=== PATIENT | female | born 1990 | race Caucasian/White ===

== ENCOUNTER 2016-09-04 07:51 | Day surgery (SDC) | payer BC ==
[~2016-09-04 07:51] MED LIST: Lactated Ringers 1,000 ML IV SCH; Lidocaine 1% 6 ML ONE; Lidocaine 1%/Sod Bicarbonate in NS 8.4% 1 ML Syringe IV PRN; Midazolam 1 MG/ML 2 ML SDV ONE; Propofol 200 MG/20 ML SDV ONE; Sodium Chloride 0.9% 10 ML Syringe FLUSH PRN; fentaNYL 100 MCG/2 ML SDV ONE
[2016-09-04] MEDS ORDERED: Lidocaine 1% 30 ML SDV ONE (08:15)
[2016-09-04] MEDS ORDERED: Bupivacaine 0.5% 30 ML SDV ONE (08:15)
[2016-09-04] MEDS ORDERED: Sodium Chloride 0.9% 50 ML SDV ONE (08:23)
--- NOTE | 2016-09-04 08:45 | PCM.PREANE ---
Preanesthetic Assessment - Anesthesia/Transfusion/Family Hx Anesthesia History: Prior Anesthesia Without Reaction Family History of Anesthesia Reaction: No Transfusion History: No Prior Transfusion(s) - Review of Systems General: No Symptoms Pulmonary: No Symptoms Cardiovascular: No Symptoms Gastrointestinal: No symptoms Neurological: No Symptoms - Physical Assessment NPO Status Date: 09/03/16 NPO Status Time: 22:30 O2 Sat by Pulse Oximetry: 98 Respiratory Rate: 18 Vital Signs: Last Vital Signs Temp 98.2 F 09/04/16 08:24 Pulse 62 09/04/16 08:24 Resp 18 09/04/16 08:24 BP 117/66 09/04/16 08:24 Pulse Ox 98 09/04/16 08:24 Height: 5 ft 2 in Weight: 78.925 kg ASA Class: 2 Mental Status: Alert & Oriented x3 Airway Class: Mallampati = 1 Dentition: Reports: Normal Dentition (cracked tooth left molar) Thyro-Mental Finger Breadths: 3 Mouth Opening Finger Breadths: 3 ROM/Head Extension: Full Lungs: Clear to auscultation, Normal respiratory effort Cardiovascular: Regular Rate, Regular Rhythm - Lab Values: Laboratory Last Values Urine HCG, Qual Negative (NEGATIVE) 09/04/16 08:05 - Allergies Allergies/Adverse Reactions: Allergies Allergy/AdvReac Type Severity Reaction Status Date / Time No Known Allergies Allergy Verified 09/03/16 15:57 - Blood Blood Available: No - Anesthesia Plan Pre-Op Medication Ordered: None - Acknowledgements Anesthesia Type Planned: MAC Pt an Appropriate Candidate for the Planned Anesthesia: Yes Alternatives and Risks of Anesthesia Discussed w Pt/Guardian: Yes Pt/Guardian Understands and Agrees with Anesthesia Plan: Yes PreAnesthesia Questionnaire HEENT History: Reports: None Cardiovascular History: Reports: None Respiratory History: Reports: None Gastrointestinal History: Reports: None, Hemorrhoids Genitourinary History: Reports: Other (See Below) 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 Never on insulin, never on oral meds. Checked FSBG at home in the month of January and found sugars to be fairly close to WNL per pt and no FSBG checks since then. Remains on low carb/low sugar diet though is not strict and has never had to see a employment programs analyst for such or otherwise Hematologic History: Reports: None Immunologic History: Reports: None Oncologic (Cancer) History: Reports: None Dermatologic History: Reports: None - Past Surgical History Head Surgeries/Procedures: Reports: None HEENT Surgical History: Reports: Oral Surgery Other HEENT Surgeries/Procedures: Friona teeth removed Cardiovascular Surgical History: Reports: None Respiratory Surgical History: Reports: None GI Surgical History: Reports: Appendectomy Other GI Surgeries/Procedures: Lap appy in 2013 without any complications Female Surgical History: Reports: None Endocrine Surgical History: Reports: None Neurological Surgical History: Reports: None Musculoskeletal Surgical History: Reports: Shoulder Surgery, Other (See Below) Other Musculoskeletal Surgeries/Procedures:: Shoulder fracture 2003 followed by surgical repair and application of a "hanging cast". Dermatological Surgical History: Reports: None - SUBSTANCE USE Smoking Status *Q: Never Smoker Tobacco Use Within Last Twelve Months: No Second Hand Smoke Exposure: No Days Per Week of Alcohol Use: 0 Recreational Drug Use History: No - HOME MEDS Home Medications: Home Meds Ethinyl Estradiol/Norgestrel [Cryselle 28-Day] 1 tab PO DAILY 09/03/16 [History] - CURRENT (IN HOUSE) MEDS Current Meds: Current Medications Lactated Ringer's (Ringers, Lactated) 1,000 mls @ 125 mls/hr IV ASDIRECTED MELLISSA Stop: 09/04/16 23:00 Last Admin: 09/04/16 08:21 Dose: 125 mls/hr Lidocaine/Sodium Bicarbonate (Buffered Lidocaine 1% In Ns 8.4%) 0.25 ml IV ONETIME PRN PRN Reason: Prior to IV Start Stop: 09/04/16 18:00 Last Admin: 09/04/16 08:21 Dose: 0.25 ml Sodium Chloride (Saline Flush) 10 ml FLUSH ASDIRECTED PRN PRN Reason: Keep Vein Open Stop: 09/04/16 18:00 Discontinued Medications Bupivacaine HCl (Marcaine 0.5%) Confirm Administered Dose 30 ml .ROUTE .STK-MED ONE Stop: 09/04/16 08:16 Fentanyl (Sublimaze) Confirm Administered Dose 100 mcg .ROUTE .STK-MED ONE Stop: 09/04/16 07:35 Lidocaine HCl (Xylocaine-Mpf 1%) Confirm Administered Dose 6 mls @ as directed .ROUTE .STK-MED ONE Stop: 09/04/16 07:35 Lactated Ringer's (Ringers, Lactated) 1,000 mls @ 125 mls/hr IV ASDIRECTED MELLISSA Stop: 09/04/16 23:00 Lidocaine HCl (Xylocaine-Mpf 1%) Confirm Administered Dose 30 ml .ROUTE .STK- MED ONE Stop: 09/04/16 08:16 Lidocaine/Sodium Bicarbonate (Buffered Lidocaine 1% In Ns 8.4%) 0.25 ml IV ONETIME PRN PRN Reason: Prior to IV Start Stop: 09/04/16 18:00 Midazolam HCl (Versed 1 Mg/Ml) Confirm Administered Dose 2 mg .ROUTE .STK-MED ONE Stop: 09/04/16 07:36 Propofol (Diprivan 20 Ml) Confirm Administered Dose 200 mg .ROUTE .STK-MED ONE Stop: 09/04/16 07:35 Sodium Chloride (Saline Flush) 10 ml FLUSH ASDIRECTED PRN PRN Reason: Keep Vein Open Stop: 09/04/16 18:00 Sodium Chloride (Normal Saline) Confirm Administered Dose 50 ml .ROUTE .STK-MED ONE Stop: 09/04/16 08:24
--- NOTE | 2016-09-04 09:52 | PCM.OPNOTE ---
- General Post-Op/Procedure Note Date of Surgery/Procedure: 09/04/16 Operative Procedure(s): 1. anoscopy. 2. two column hemorrhoidal rubber band ligation Findings: Prominent right anterior and right posterior hemorrhoidal columns. The left lateral column was unremarkable. No anterior or posterior fissure was seen. There were no mass, lesions seen. Pre Op Diagnosis: Bright red rectal bleeding Post-Op Diagnosis: Internal hemorrhoids Anesthesia Technique: MAC, Moderate sedation Primary Surgeon: Justin Kurtz Pathology: None EBL in mLs: 0 Complications: None Condition: Good Free Text/Narrative:: After adequate IV sedation and analgesia was obtained the patient was placed in the prone jackknife position with her buttocks taped. Perianal inspection revealed no external hemorrhoids or anal tags. Digital rectal examination revealed normal sphincter tone. Anoscopy was performed next and revealed no fissures. There were no mass lesions seen. The right anterior and right posterior hemorrhoidal columns were slightly prominent but were nonbleeding. The left lateral column was essentially normal. At this point I placed a self- retaining anal retractor to expose the right posterior column. Two rubber bands were placed above the right posterior column with the sure shot followed by 2 rubber bands being placed above the right anterior hemorrhoidal column. There were no complications.
--- NOTE | 2016-09-04 09:52 | PCM48HPAN ---
Post Anesthesia Note - EVALUATION WITHIN 48HRS OF ANESTHETIC Vital Signs in Normal Range: Yes Patient Participated in Evaluation: Yes Respiratory Function Stable: Yes Airway Patent: Yes Cardiovascular Function Stable: Yes Hydration Status Stable: Yes Pain Control Satisfactory: Yes Nausea and Vomiting Control Satisfactory: Yes Mental Status Recovered: Yes
[2016-09-04 09:53] VITALS: BP 108/64
== END 2016-09-04 10:11 | disposition home or self-care (01) ==
LOC: MERGE 07:51 → JD.SDS 07:51
PROVIDERS: ATTEND Surgery
DX: K64.8 Other hemorrhoids (principal); E11.9 Type 2 diabetes mellitus without complications; E03.9 Hypothyroidism, unspecified; Z90.49 Acquired absence of other specified parts of digestive tract; Z79.3 Long term (current) use of hormonal contraceptives; Z79.899 Other long term (current) drug therapy
CPT/HCPCS: 46221; 81025; J2250; J3010; J7120; 00902; J2704

== ENCOUNTER 2017-07-11 10:56 | Inpatient (IN) | payer BC ==
--- NOTE | 2017-07-11 12:01 | PCM.LDHP ---
<Pancho Watkins Ermias - Last Filed: 07/11/17 13:26> L&D History of Present Illness - General Date of Service: 07/11/17 Admit Problem/Dx: Admission Diagnosis/Problem Admission Diagnosis/Problem 07/11/17 11:58 A 37 and 6/7th week intrauterine with gestational diabetes who presents to Labor and Delivery with increasing contractions and bloody show. - History of Present Illness Introduction:: This patient is a 27-year-old, 4, para 3-0-0-3 white female who was admitted at 37 and 6/7th weeks gestational age with an RENETTA of 07/26/2017 for contractions and the presence of a bloody show. She has had three previous normal spontaneous vaginal deliveries without complications. She is a diagnosed gestational diabetic whose blood sugars have monitored since approximately 31 weeks and have been well controlled with diet. 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 Female born on [birth year] at 39 weeks gestational age - 6 pounds 5 ounces - via normal spontaneous vaginal delivery - child's name is Anabella. 2. Female born on 03/26/2015 at 38 and 6/7ths weeks gestational age - 8 pounds 0 ounces - via normal spontaneous vaginal delivery after 12 hours of labor - child's name is Ronit Gaxiola. 3. Female infant born on 2015 at 37 and 6/7ths weeks gestational age - 10 pounds 0 ounces - via normal spontaneous vaginal delivery after 8 hours of labor - child's name is Von Ormy. The patient was first seen for care on 12/30/2016 at 10 and 2/ 7th weeks gestational age based on a certain LMP of 10/19/2016 and consistent with first ultrasound dates of 10 and 1/7th weeks. She has had regular care with good activity and appropriate fundal growth. She elected to not do the 1 hour GGT and went on to fail the 3 hour GGT. She has been monitoring her sugars at home and has been able to regulate them with diet. Her pregravid weight was 178 and is now 203, resulting in a 25 pound weight gain.) : 4 Para: 3 Other OB/BYN History: , hot flashes Musculoskeletal History: Reports: Fracture Neurological History: Reports: None Psychiatric History: Reports: None Endocrine/Metabolic History: Reports: Diabetes, Gestational, Hypothyroidism, Other (See Below) Other Endocrine/Metabolic History: 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 Never on insulin, never on oral meds. Checked FSBG at home in the month of January and found sugars to be fairly close to WNL per pt and no FSBG checks since then. Remains on low carb/low sugar diet though is not strict and has never had to see a environmental property assessor for such or otherwise Hematologic History: Reports: None Immunologic History: Reports: None Oncologic (Cancer) History: Reports: None Dermatologic History: Reports: None - Past Surgical History Musculoskeletal Surgical History: Reports: Other (See Below), Shoulder Surgery Social & Family History - Family History Family Medical History: Noncontributory Cardiac: Reports: High Cholesterol, Hypertension Other Cardiac Family History: Pt's father does have high cholesterol, and pt's mother MAY have HTN- pt not certain, otherwise, no one ill or with hx of illness pt is aware of in her or 's family. Dermatologic: Reports: Other (See Below) Other Dermatologic Family History: Father had a possible skin cancer of unknown type removed and biopsied recently Oncologic: Reports: None - Tobacco Use Smoking Status *Q: Never Smoker Second Hand Smoke Exposure: No - Alcohol Use Days Per Week of Alcohol Use: 0 - Recreational Drug Use Recreational Drug Use: No - Living Situation & Occupation Living situation: Reports: ( is Ricardo Mathias. She is a college graduate and a [id number] mom. She does not use tobacco, drugs, or alcohol.) H&P Review of Systems - Review of Systems: General: Reports: No Symptoms, Other (Patient is doing well. Baby is active. No complaints noted at this time.) Pulmonary: Denies: Shortness of Breath, Cough Cardiovascular: Denies: Chest Pain, Dyspnea on Exertion Gastrointestinal: Reports: No Symptoms Genitourinary: Reports: No Symptoms, Other (Changes associated with ) Musculoskeletal: Reports: No Symptoms Skin: Reports: No Symptoms Psychiatric: Reports: No Symptoms Neurological: Reports: No Symptoms L&D Exam - Vital Signs Vital Signs: Blood pressure of 120/73, temperature of 97.8 degrees F, heart rate of 79 bpm, respiratory rate of 15, and 99% O2 on admission to labor and delivery. Weight: 92.079 kg - OB Specific Fundal Height In cm: 38 - Bingham Score Bingham Score Consistency: Soft Bingham Score Effacement: 51-70% Bingham Score Dilation: 3-4 cm Bingham Score 's Station: -2 - Exam General: Alert, Oriented HEENT: Other (Within normal limits) Lungs: Clear to Auscultation, Normal Respiratory Effort Cardiovascular: Regular Rate, Regular Rhythm GI/Abdominal Exam: Normal Bowel Sounds, Other (Protuberant abdomen consistent with . Fundal height of 38 cm. Baby is in vertex position.) Extremities: Normal Inspection (Trace edema present) Skin: Warm, Dry, Intact Neurological: Other (Within normal limits) Psychiatric: Alert, Normal Affect, Normal Mood - Patient Data Lab Results Last 24 hrs: Shows blood to be O- with a negative antibody screen. Hemoglobin at first screen was 12.8 g/dL and platelets of 271,000. Rubella titer shows immunity. RPR is nonreactive. Pap smear shows ASCUS and HPV negative. Hep B and HIV assays were both negative. Chlamydia and gonorrhea assays were both negative. Second tgrimester testing showed hemboglobin to be normal at 12.5 g/ dL. Platelets were normal at 240,000. The 3 hour GGT was abnormal with values of 83, 190, 177, and 123 corresponding to fasting, 1 hour, 2 hours, and 3 hours , respectively. Group B Strep screen was negative. Assessment/Plan Comment:: Asssessment: 1. A 37 and 6/7th week intrauterine with gestational diabetes with consistent contractions and appropriate cervical change. 2. Group B Strep screen is negative. 3. The patient plans to breastfeed. 4. Rubella titer shows immunity. 5. The patient is considering a natural labor. Plan: 1. Artificial rupture of membranes. 2. Support decision to breastfeed. 3. Progress with natural labor or pain management as desired by the patient. <Rigoberto Dozier F - Last Filed: 07/11/17 16:00> L&D History of Present Illness - General Admit Problem/Dx: Patient Status Order with Admit Dx/Problem 07/11/17 13:11 Patient Status [ADT] Routine Admission Diagnosis/Problem Admission Diagnosis/Problem Source of Information: Patient History Limitations: Reports: No Limitations H&P Review of Systems - Review of Systems: Review Of Systems: See Below L&D Exam - Exam Exam: See Below - Vital Signs Vital Signs: Last Vital Signs Temp 36.6 C 07/11/17 13:25 Pulse 79 07/11/17 13:25 Resp 15 07/11/17 13:25 BP 120/73 07/11/17 13:25 Pulse Ox 99 07/11/17 13:25 - Patient Data Lab Results Last 24 hrs: Laboratory Results - last 24 hr 07/11/17 Range/Units 13:45 WBC 9.45 (3.98-10.04) K/mm3 RBC 4.29 (3.98-5.22) M/mm3 Hgb 13.2 (11.2-15.7) gm/L Hct 37.4 (34.1-44.9) % MCV 87.2 (79.4-94.8) fl MCH 30.8 (25.6-32.2) pg MCHC 35.3 (32.2-35.5) g/dl RDW Std Deviation 40.9 (36.4-46.3) fL Plt Count 241 (182-369) K/mm3 MPV 11.1 (9.4-12.3) fl Neut % (Auto) 72.9 H (34.0-71.1) % Lymph % (Auto) 18.0 L (19.3-51.7) % [place] % (Auto) 8.6 (4.7-12.5) % Eos % (Auto) 0.3 L (0.7-5.8) Baso % (Auto) 0.2 (0.1-1.2) % Neut # (Auto) 6.89 H (1.56-6.13) K/mm3 Lymph # (Auto) 1.70 (1.18-3.74) K/mm3 [place] # (Auto) 0.81 H (0.24-0.36) K/mm3 Eos # (Auto) 0.03 L (0.04-0.36) K/mm3 Baso # (Auto) 0.02 (0.01-0.08) K/mm3 Result Diagrams: 07/11/17 13:45 Problem List Initiated/Reviewed/Updated: Yes Orders Last 24hrs: Active Orders 24 hr Category Date Time Status Patient Status [ADT] Routine ADT 07/11/17 13:11 Active Activity as Tolerated [RC] PFP Care 07/11/17 13:11 Active Communication Order [RC] ASDIRECTED Care 07/11/17 13:11 Active Heart Tones [RC] ASDIRECTED Care 07/11/17 13:11 Active Notify Provider [RC] ASDIRECTED Care 07/11/17 13:18 Active Notify Provider [RC] PFP Care 07/11/17 13:11 Active Notify Provider [RC] PRN Care 07/11/17 13:11 Active Oxygen Therapy [RC] ASDIRECTED Care 07/11/17 13:18 Active Peripheral IV Care [RC] . DIRECTED Care 07/11/17 13:11 Active Pulse Oximetry [RC] ASDIRECTED Care 07/11/17 13:18 Active Vital Signs [RC] PER UNIT ROUTINE Care 07/11/17 13:11 Active Clear Liquid Diet [DIET] Diet 07/11/17 Dinner Active TYPE AND SCREEN [BBK] Stat Lab 07/11/17 13:09 Ordered Bupivacaine/fentaNYL/NS [fentaNYL/Bupivacaine/NS 2 MCG- Med 07/11/17 13:30 Active 0.125% 100 ML] 100 ml EPIDUR ASDIRECTED Lactated Ringers [Ringers, Lactated] 1,000 ml Med 07/11/17 13:15 Active IV ASDIRECTED Ondansetron [Zofran] Med 07/11/17 13:19 Active 4 mg IVPUSH ONETIME PRN Oxytocin/Lactated Ringers [Pitocin in LR 10 Units/1,000 Med 07/11/17 13:15 Active ML] 10 unit in 1,000 ml IV .CONTINUOUS Oxytocin/Lactated Ringers [Pitocin in LR 10 Units/1,000 Med 07/11/17 16:00 Ordered ML] 10 unit in 1,000 ml IV TITRATE Sodium Chloride 0.9% [Saline Flush] Med 07/11/17 13:09 Active 10 ml FLUSH ASDIRECTED PRN ePHEDrine [ePHEDrine Sulfate] Med 07/11/17 13:19 Active 5 mg IVPUSH ASDIRECTED PRN fentaNYL [Sublimaze] Med 07/11/17 13:19 Active 100 mcg EPIDUR Q3H PRN Electronic Heart Tones Ext w TOCO [WOMSER] Oth 07/11/17 13:11 Ordered Routine Electronic Heart Tones Internal [WOMSER] Per Unit Oth 07/11/17 13:11 Ordered Routine Peripheral IV Insertion Adult [OM.PC] Routine Oth 07/11/17 13:11 Ordered Resuscitation Status Routine Resus Stat 07/11/17 13:09 Ordered Medication Orders Ephedrine Sulfate (Ephedrine Sulfate) 5 mg IVPUSH ASDIRECTED PRN PRN Reason: Hypotension Fentanyl (Sublimaze) 100 mcg EPIDUR Q3H PRN PRN Reason: Pain Fentanyl/Bupivacaine HCl (Fentanyl/Bupivacaine/Ns 2 Mcg-0.125% 100 Ml) 100 ml EPIDUR ASDIRECTED MELLISSA Lactated Ringer's (Ringers, Lactated) 1,000 mls @ 100 mls/hr IV ASDIRECTED MELLISSA Oxytocin/Lactated Ringer's (Pitocin In Lr 10 Units/1,000 Ml) 10 unit in 1,000 mls @ 500 mls/hr IV .CONTINUOUS MELLISSA PRN Reason: Protocol Ondansetron HCl (Zofran) 4 mg IVPUSH ONETIME PRN PRN Reason: Nausea/Vomiting Sodium Chloride (Saline Flush) 10 ml FLUSH ASDIRECTED PRN PRN Reason: Keep Vein Open
[2017-07-11] MEDS ORDERED: Sodium Chloride 0.9% 10 ML Syringe FLUSH PRN (13:09)
[2017-07-11] MEDS ORDERED: Oxytocin/Lactated Ringers 10 UNIT/1,000 ML BAG IV SCH ×2 (13:15→16:00)
[2017-07-11] MEDS ORDERED: ePHEDrine 50 MG/ML SDV IVPUSH PRN (13:19)
[2017-07-11] MEDS ORDERED: fentaNYL 100 MCG/2 ML SDV EPIDUR PRN (13:19)
[2017-07-11] MEDS ORDERED: Ondansetron 4 MG/2 ML SDV IVPUSH PRN (13:19)
--- NOTE | 2017-07-11 13:24 | PCM.PREANE ---
Preanesthetic Assessment - Anesthesia/Transfusion/Family Hx Anesthesia History: Prior Anesthesia Without Reaction Family History of Anesthesia Reaction: No Transfusion History: No Prior Transfusion(s) Intubation History: Unknown - Review of Systems General: No Symptoms Pulmonary: No Symptoms Cardiovascular: No Symptoms Gastrointestinal: No Symptoms Neurological: Headache Other: Reports: None, Diabetes (gestational DM) - Physical Assessment NPO Status Date: 07/11/17 NPO Status Time: 08:00 Pulse: 79 O2 Sat by Pulse Oximetry: 99 Respiratory Rate: 15 Blood Pressure: 120/73 Temperature: 36.6 C Vital Signs: Last Vital Signs Temp 36.6 C 07/11/17 11:11 Pulse 79 07/11/17 11:11 Resp 15 07/11/17 11:11 BP 120/73 07/11/17 11:11 Pulse Ox 99 07/11/17 11:11 Height: 1.68 m Weight: 92.079 kg ASA Class: 2 Mental Status: Alert & Oriented x3 Airway Class: Mallampati = 2 Dentition: Reports: Normal Dentition, Caries Thyro-Mental Finger Breadths: 3 Mouth Opening Finger Breadths: 3 ROM/Head Extension: Full Lungs: Clear to Auscultation, Normal Respiratory Effort Cardiovascular: Regular Rate, Regular Rhythm, No Murmurs - Allergies Allergies/Adverse Reactions: Allergies Allergy/AdvReac Type Severity Reaction Status Date / Time No Known Allergies Allergy Verified 09/03/16 15:57 - Anesthesia Plan Pre-Op Medication Ordered: None - Acknowledgements Anesthesia Type Planned: Epidural Pt an Appropriate Candidate for the Planned Anesthesia: Yes Alternatives and Risks of Anesthesia Discussed w Pt/Guardian: Yes Pt/Guardian Understands and Agrees with Anesthesia Plan: Yes PreAnesthesia Questionnaire HEENT History: Reports: None Cardiovascular History: Reports: None Respiratory History: Reports: None Gastrointestinal History: Reports: Hemorrhoids, None Genitourinary History: Reports: Other (See Below) 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 Female born on [birth year] at 39 weeks gestational age - 6 pounds 5 ounces - via normal spontaneous vaginal delivery - child's name is Anabella. 2. Female infant born on 03/26/2015 at 38 and 6/7ths weeks gestational age - 8 pounds 0 ounces - via normal spontaneous vaginal delivery after 12 hours of labor - child's name is Ronit Gaxiola. 3. Female born on 2015 at 37 and 6/7ths weeks gestational age - 10 pounds 0 ounces - via normal spontaneous vaginal delivery after 8 hours of labor - child's name is Mishel Matthews. The patient was first seen for care on 12/30/2016 at 10 and 2/ 7th weeks gestational age based on a certain LMP of 10/19/2016 and consistent with first ultrasound dates of 10 and 1/7th weeks. She has had regular care with good activity and appropriate fundal growth. She elected to not do the 1 hour GGT and went on to fail the 3 hour GGT. She has been monitoring her sugars at home and has been able to regulate them with diet. Her pregravid weight was 178 and is now 203, resulting in a 25 pound weight gain.) Other OB/BYN History: , hot flashes Musculoskeletal History: Reports: Fracture Neurological History: Reports: None Psychiatric History: Reports: None Endocrine/Metabolic History: Reports: Diabetes, Gestational, Hypothyroidism, Other (See Below) Other Endocrine/Metabolic History: 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 Never on insulin, never on oral meds. Checked FSBG at home in the month of January and found sugars to be fairly close to WNL per pt and no FSBG checks since then. Remains on low carb/low sugar diet though is not strict and has never had to see a wireless construction manager for such or otherwise Hematologic History: Reports: None Immunologic History: Reports: None Oncologic (Cancer) History: Reports: None Dermatologic History: Reports: None - Infectious Disease History Infectious Disease History: Reports: Other (See Below) Other Infectious Disease History: HSV-1 - Past Surgical History Musculoskeletal Surgical History: Reports: Other (See Below), Shoulder Surgery - SUBSTANCE USE Smoking Status *Q: Never Smoker Tobacco Use Within Last Twelve Months: No Second Hand Smoke Exposure: No Days Per Week of Alcohol Use: 0 Recreational Drug Use History: No - CURRENT (IN HOUSE) MEDS Current Meds: Current Medications Lactated Ringer's (Ringers, Lactated) 1,000 mls @ 100 mls/hr IV ASDIRECTED MELLISSA Oxytocin/Lactated Ringer's (Pitocin In Lr 10 Units/1,000 Ml) 10 unit in 1,000 mls @ 500 mls/hr IV .CONTINUOUS MELLISSA PRN Reason: Protocol Sodium Chloride (Saline Flush) 10 ml FLUSH ASDIRECTED PRN PRN Reason: Keep Vein Open
[2017-07-11] MEDS ORDERED: Bupivacaine/fentaNYL/NS 100 ML Bag EPIDUR SCH (13:30)
[2017-07-11] MEDS: Lactated Ringers 1,000 ML IV SCH ×2 (16:15→18:06)
[2017-07-11] MEDS ORDERED: Bupivacaine 0.25% 10 ML SDV ONE (18:00)
--- NOTE | 2017-07-11 19:07 | PCM.SN ---
- Free Text/Narrative Note: Delivery note: Estelle is a 27-year-old 4 now para 4004 who was admitted midday today at 37-6/7 weeks gestational age in early labor. She progressed from 3-4 cm dilated and was chata approximately every 5-8 minutes apart. She progressed to approximately 6 cm at which time artificial rupture murmurs was undertaken with the results and clear amniotic fluid. She progressed to 8 cm and underwent epidural analgesia. She became completely dilated by approximately 1835 hrs. and pushed approximately 3 contractions which time she delivered a viable, haro, female infant with Apgars of 8 and 9, weight of 3230 g (7 pounds 1.9 ounces) and a length of 18.0 inches. The perineum remained intact. Pitocin was administered IV after deliver the baby per protocol. Baby was placed on mom's abdomen. Cord was cut and clamped 2 and cut by the baby's father Ricardo. Baby's nose and mouth bulb suctioned. The placenta delivered intact, in a Ortega presentation, appeared complete and was discarded per patient desire. Blood loss was 100 mL. Patient plans to breast -feed. Condition: Good
[2017-07-11] MEDS ORDERED: Acetaminophen 325 MG Tab PO PRN (19:16)
[2017-07-11] MEDS ORDERED: Ibuprofen 600 MG Tab PO PRN (19:16)
[2017-07-11] MEDS ORDERED: Lanolin 100% Cream 7 GM Tube TOP PRN (19:16)
[2017-07-11] MEDS ORDERED: Docusate Sodium 100 MG Cap PO PRN (19:16)
[2017-07-11] MEDS ORDERED: Witch Hazel Medicated Pads 100/Jar TOP PRN (19:16)
[2017-07-11] MEDS ORDERED: Benzocaine/Menthol 20%-0.5% Spray 56 GM Canister TOP PRN (19:16)
--- NOTE | 2017-07-12 11:16 | PCM.SN ---
- Free Text/Narrative Note: Post Progress Note PPD # 1 Subjective: Doing well overall. Ambulating without difficulty. Lochia minimal. Voiding without difficulty. Tolerating regular diet without nausea or vomiting. Pain controlled with oral medications. Breast feeding with minimal difficulty. Objective: Vitals: Vital Signs - 24 hr 07/11/17 07/11/17 07/12/17 13:25 21:38 04:29 Temperature 36.6 C 36.6 C 36.4 C Pulse, 79 69 75 Peripheral Respiratory 15 20 16 Rate Blood Pressure 120/73 116/65 109/79 O2 Sat by Pulse 99 98 98 Oximetry Physical Exam General: Alert and oriented, no acute distress Lungs: Clear to auscultation bilaterally Heart: Regular rate and rhythm Abdomen: Soft, minimal appropriate tenderness, non-distended, fundus midline, nontender, and below the umbilicus Extremities: Trace edema bilaterally to mid shins ASSESSMENT: 27-year-old female G 4 P 4004 s/p normal vaginal delivery PPD #1, complicated by gestational diabetes, diet controlled PLAN: Doing well Breast feeding with minimal difficulty. Assist as needed Lochia minimal. Continue to monitor for appropriate lochia. Continue routine care Anticipate discharge home today Robbin Bernal MD 11:17 AM 07/12/2017
--- NOTE | 2017-07-12 11:26 | PCM.DCSUM1 ---
Discharge Summary - Hospital Course Free Text/Narrative:: Estelle is a 27-year-old 4 now para 4004 who was admitted midday today at 37-6/7 weeks gestational age in early labor. She progressed from 3-4 cm dilated and was chata approximately every 5-8 minutes apart. She progressed to approximately 6 cm at which time artificial rupture murmurs was undertaken with the results and clear amniotic fluid. She progressed to 8 cm and underwent epidural analgesia. She became completely dilated by approximately 1835 hrs. and pushed approximately 3 contractions which time she delivered a viable, haro, female infant with Apgars of 8 and 9, weight of 3230 g (7 pounds 1.9 ounces) and a length of 18.0 inches. The perineum remained intact. Pitocin was administered IV after deliver the baby per protocol. Baby was placed on mom's abdomen. Cord was cut and clamped 2 and cut by the baby's father Ricardo. Baby's nose and mouth bulb suctioned. The placenta delivered intact, in a Ortega presentation, appeared complete and was discarded per patient desire. Blood loss was 100 mL. Patient plans to breast -feed. Condition: Good HPI Initial Comments: Estelle is a 27-year-old 4 now para 4004 who was admitted midday today at 37-6/7 weeks gestational age in early labor. She progressed from 3-4 cm dilated and was chata approximately every 5-8 minutes apart. She progressed to approximately 6 cm at which time artificial rupture murmurs was undertaken with the results and clear amniotic fluid. She progressed to 8 cm and underwent epidural analgesia. She became completely dilated by approximately 1835 hrs. and pushed approximately 3 contractions which time she delivered a viable, haro, female with Apgars of 8 and 9, weight of 3230 g (7 pounds 1.9 ounces) and a length of 18.0 inches. The perineum remained intact. Pitocin was administered IV after deliver the baby per protocol. Baby was placed on mom's abdomen. Cord was cut and clamped 2 and cut by the baby's father Ricardo. Baby's nose and mouth bulb suctioned. The placenta delivered intact, in a Ortega presentation, appeared complete and was discarded per patient desire. Blood loss was 100 mL. Patient plans to breast -feed. Condition: Good Brief History: Estelle is a 27-year-old 4 now para 4004 who was admitted midday today at 37-6/7 weeks gestational age in early labor. She progressed from 3-4 cm dilated and was chata approximately every 5-8 minutes apart. She progressed to approximately 6 cm at which time artificial rupture murmurs was undertaken with the results and clear amniotic fluid. She progressed to 8 cm and underwent epidural analgesia. She became completely dilated by approximately 1835 hrs. and pushed approximately 3 contractions which time she delivered a viable, haro, female infant with Apgars of 8 and 9, weight of 3230 g (7 pounds 1.9 ounces) and a length of 18.0 inches. The perineum remained intact. Pitocin was administered IV after deliver the baby per protocol. Baby was placed on mom's abdomen. Cord was cut and clamped 2 and cut by the baby's father Ricardo. Baby's nose and mouth bulb suctioned. The placenta delivered intact, in a Ortega presentation, appeared complete and was discarded per patient desire. Blood loss was 100 mL. Patient plans to breast- feed. Condition: Good - Discharge Data Discharge Date: 07/12/17 Discharge Disposition: Home, Self-Care 01 Condition: Good - Discharge Diagnosis/Problem(s) (1) 37 weeks gestation of SNOMED Code(s): 92312229 ICD Code: Z3A.37 - 37 WEEKS GESTATION OF Status: Acute Priority : Medium Current Visit: Yes (2) Gestational diabetes SNOMED Code(s): 15105180 ICD Code: O24.419 - GESTATIONAL DIABETES MELLITUS IN , UNSP CONTROL Status: Acute Current Visit: Yes Qualifiers: Gestational diabetes mellitus control: diet-controlled (3) Vaginal delivery SNOMED Code(s): 817835212 ICD Code: O80 - ENCOUNTER FOR FULL-TERM UNCOMPLICATED DELIVERY Status: Acute Current Visit: Yes - Patient Summary/Data Operative Procedure(s) Performed: None Complications: None Consults: None Hospital Course: Estelle Mathias was admitted for active labor. On admission her cervix was dilated to 3-4 cm. She was GBS negative. She was given an epidural for anesthesia. She had artificial rupture of membranes with clear fluid. She progressed to complete and began pushing. On 07/11/2017 she had a normal vaginal delivery of a viable female . Apgars of 8 & 9. Weight of 3230 g (7 pounds 1.9 ounces). Her course was uneventful. Her pain was well controlled and she had minimal lochia. She was ambulating, tolerating a regular diet and voiding normally. She was breast feeding. She was afebrile and her hematocrit was 37.4 on admission. She desired to be discharged home on the afternoon of PPD #1. Her blood type is O- and infant's blood type is O-. RhoGAM not indicated secondary to infant blood type with Rh- status. - Patient Instructions Diet: Regular Diet as Tolerated Activity: As Tolerated Activity, Other: Nothing in the vagina for 6 weeks Driving: May Drive Today Showering/Bathing: May Shower Notify Provider of: Fever, Increased Pain, Swelling and Redness, Drainage, Nausea and/or Vomiting Other/Special Instructions: Heavy vaginal bleeding enough to soak a pad in less than an hour for several hours - Discharge Plan Home Medications: Home Meds Vit #108/Iron/FA [ One Tablet] 1 tab PO DAILY 07/11/17 [History ] Acetaminophen [Tylenol] 650 mg PO Q4H PRN tablet 07/12/17 [Rx] Benzocaine/Menthol [Dermoplast Pain Relief [place]] 1 spray TOP ASDIRECTED PRN canister 07/12/17 [Rx] Docusate Sodium [Colace] 100 mg PO BID PRN cap 07/12/17 [Rx] Ibuprofen [IJD: Ibuprofen] 600 mg PO Q4H PRN tablet 07/12/17 [Rx] Lanolin [Lansinoh HPA] 1 applic TOP ASDIRECTED PRN tube 07/12/17 [Rx] Patient Handouts: Vaginal Delivery, Home Care Instructions for Mom, Care After Vaginal Delivery Referrals: Rigoberto Dozier MD [Physician] - (Follow-up in 2 weeks or earlier as needed for visit) - Discharge Summary/Plan Comment DC Time >30 min.: No - Patient Data Vitals - Most Recent: Last Vital Signs Temp 36.4 C 07/12/17 04:29 Pulse 75 07/12/17 04:29 Resp 16 07/12/17 04:29 BP 109/79 07/12/17 04:29 Pulse Ox 98 07/12/17 04:29 Weight - Most Recent: 92.079 kg I&O - Last 24 hours: Intake & Output 07/11/17 07/12/17 07/12/17 22:59 06:59 14:59 Intake Total 1700 Balance 1700 Lab Results - Last 24 hrs: Laboratory Results - last 24 hr 07/11/17 Range/Units 13:45 WBC 9.45 (3.98-10.04) K/mm3 RBC 4.29 (3.98-5.22) M/mm3 Hgb 13.2 (11.2-15.7) gm/L Hct 37.4 (34.1-44.9) % MCV 87.2 (79.4-94.8) fl MCH 30.8 (25.6-32.2) pg MCHC 35.3 (32.2-35.5) g/dl RDW Std Deviation 40.9 (36.4-46.3) fL Plt Count 241 (182-369) K/mm3 MPV 11.1 (9.4-12.3) fl Neut % (Auto) 72.9 H (34.0-71.1) % Lymph % (Auto) 18.0 L (19.3-51.7) % [place] % (Auto) 8.6 (4.7-12.5) % Eos % (Auto) 0.3 L (0.7-5.8) Baso % (Auto) 0.2 (0.1-1.2) % Neut # (Auto) 6.89 H (1.56-6.13) K/mm3 Lymph # (Auto) 1.70 (1.18-3.74) K/mm3 [place] # (Auto) 0.81 H (0.24-0.36) K/mm3 Eos # (Auto) 0.03 L (0.04-0.36) K/mm3 Baso # (Auto) 0.02 (0.01-0.08) K/mm3 Med Orders - Current: Current Medications Acetaminophen (Tylenol) 650 mg PO Q4H PRN PRN Reason: mild pain or fever Benzocaine/Menthol (Dermoplast Pain Relief [place]) 0 gm TOP ASDIRECTED PRN PRN Reason: Perineal Comfort Measure Docusate Sodium (Colace) 100 mg PO BID PRN PRN Reason: Constipation Emollient Ointment (Lansinoh Hpa) 0 gm TOP ASDIRECTED PRN PRN Reason: Sore Nipples Ibuprofen (Motrin) 600 mg PO Q4H PRN PRN Reason: Mild pain or fever Last Admin: 07/12/17 07:00 Dose: 600 mg Witch Tawanna (Tucks) 1 pad TOP ASDIRECTED PRN PRN Reason: Hemorrhoid pain Discontinued Medications Bupivacaine HCl (Sensorcaine-Mpf 0.25%) 10 ml .ROUTE .STK-MED ONE Stop: 07/11/17 18:01 Ephedrine Sulfate (Ephedrine Sulfate) 5 mg IVPUSH ASDIRECTED PRN PRN Reason: Hypotension Fentanyl (Sublimaze) 100 mcg EPIDUR Q3H PRN PRN Reason: Pain Last Admin: 07/11/17 18:04 Dose: 100 mcg Fentanyl/Bupivacaine HCl (Fentanyl/Bupivacaine/Ns 2 Mcg-0.125% 100 Ml) 100 ml EPIDUR ASDIRECTED MELLISSA Last Admin: 07/11/17 18:03 Dose: 100 ml Lactated Ringer's (Ringers, Lactated) 1,000 mls @ 100 mls/hr IV ASDIRECTED MELLISSA Last Infusion: 07/11/17 18:41 Dose: 100 mls/hr Oxytocin/Lactated Ringer's (Pitocin In Lr 10 Units/1,000 Ml) 10 unit in 1,000 mls @ 500 mls/hr IV .CONTINUOUS MELLISSA PRN Reason: Protocol Oxytocin/Lactated Ringer's (Pitocin In Lr 10 Units/1,000 Ml) 10 unit in 1,000 mls @ 12 mls/hr IV TITRATE MELLISSA; 2 MUNITS/MIN PRN Reason: Protocol Last Titration: 07/11/17 18:48 Dose: 0 munits/min, 0 mls/hr Ondansetron HCl (Zofran) 4 mg IVPUSH ONETIME PRN PRN Reason: Nausea/Vomiting Sodium Chloride (Saline Flush) 10 ml FLUSH ASDIRECTED PRN PRN Reason: Keep Vein Open *Q Meaningful Use (DIS) - VTE *Q VTE Criteria *Q: - Stroke *Q Stroke Criteria *Q: - AMI *Q AMI Criteria *Q:
[2017-07-12 21:22] VITALS: BP 125/77
== END 2017-07-12 20:45 | disposition home or self-care (01) | DRG 560 ==
LOC: JD.OBCHECK 10:56 → JD.OB 10:58 → JD.OBCHECK 13:11 → JD.OB 13:11 → OBSVTOIN 18:47 → JD.OB 18:47
PROVIDERS: ADMIT Obstetrics & Gynecology; ATTEND Obstetrics & Gynecology
PROC: 10E0XZZ Delivery of Products of Conception, External Approach (ICD-10-PCS; principal; 2017-07-11)
PROC: 10907ZC Drainage of Amniotic Fluid, Therapeutic from Products of Conception, Via Natural or Artificial Opening (ICD-10-PCS; 2017-07-11)
PROC: 00HU33Z Insertion of Infusion Device into Spinal Canal, Percutaneous Approach (ICD-10-PCS; 2017-07-11)
PROC: 3E0R3BZ Introduction of Anesthetic Agent into Spinal Canal, Percutaneous Approach (ICD-10-PCS; 2017-07-11)
DX: O24.420 Gestational diabetes mellitus in childbirth, diet controlled (principal); Z3A.37 37 weeks gestation of pregnancy; Z37.0 Single live birth
CPT/HCPCS: 36415; 59409; 85025; 85027; A9270-GY; J2590; J3010; J7120

== ENCOUNTER 2018-04-25 01:38 | Emergency (ER) | payer BC ==
[2018-04-25 01:44] VITALS: BP 129/80
[2018-04-25] MEDS ORDERED: HYDROmorphone 1 MG/ML Syringe IVPUSH STA (01:55)
[2018-04-25] MEDS ORDERED: Ondansetron 4 MG/2 ML SDV IVPUSH ONE (01:55)
[2018-04-25] MEDS ORDERED: Sodium Chloride 0.9% 1,000 ML IV SCH (02:00)
--- NOTE | 2018-04-25 02:30 | EDM.PDOC ---
ED HPI GENERAL MEDICAL PROBLEM - General Chief Complaint: Abdominal Pain Stated Complaint: [facility] Time Seen by Provider: 04/25/18 01:41 Source of Information: Reports: Patient, Family (), RN Notes Reviewed History Limitations: Reports: No Limitations - History of Present Illness INITIAL COMMENTS - FREE TEXT/NARRATIVE: Medical records indicate that the patient was seen in this ED on 03/18/2018, at which time a CT scan of the abdomen and pelvis found lesions in the liver, consistent with metastatic disease. The patient states that she was formally diagnosed with stage IV colon cancer on 03/27/2018. The patient and her were seen at [facility] just 2 days ago, 04/22/2017, and returned home this past evening. The patient is to receive a Port-A-Cath this coming 04/28/2017, with chemotherapy to begin the following day, Friday, 2017. The patient's Oncologist in [place] is Dr. Rinku Byers. The patient states that she developed left upper quadrant abdominal pain around 21:00 this evening, while driving back from [place]. It is a constant pressure , but made sharp when she takes a deep breath. Occasionally, when it is severe, it will radiate to the left flank. She has had nausea, but no emesis. No recent fever, constipation, diarrhea, or urinary symptoms. While the patient has had severe pain elsewhere in her abdomen, particularly on the right side, she has not had pain in the left upper quadrant previously. The last imaging study of the patient was a CT scan of the abdomen and pelvis on 04/17/2018, at [facility]. The patient last oral food was around 21:00. The patient's PCP is Dr. Dozier. Left Abdominal Pain Score (Numeric/FACES): 10 - Related Data Allergies Allergy/AdvReac Type Severity Reaction Status Date / Time No Known Allergies Allergy Verified 04/25/18 01:44 Home Meds: Home Meds . [No Known Home Meds] 04/25/18 [History] Past Medical History Gastrointestinal History: Reports: Hemorrhoids [employer] History: Reports: Musculoskeletal History: Reports: Fracture (left proximal humerus) Endocrine/Metabolic History: Reports: Diabetes, Gestational, Hypothyroidism Oncologic (Cancer) History: Reports: Colon (Stage IV) - Infectious Disease History Infectious Disease History: Reports: Herpes (HSV-1) - Past Surgical History HEENT Surgical History: Reports: Oral Surgery (wisdom teeth extraction) GI Surgical History: Reports: Appendectomy, Colonoscopy, Other (See Below) ( Hemmorhoid banding) Musculoskeletal Surgical History: Reports: ORIF (left proximal humerus) Social & Family History - Family History Family Medical History: Noncontributory Cardiac: Reports: High Cholesterol, Hypertension Other Cardiac Family History: Pt's father does have high cholesterol, and pt's mother MAY have HTN- pt not certain, otherwise, no one ill or with hx of illness pt is aware of in her or 's family. Dermatologic: Reports: Other (See Below) Other Dermatologic Family History: Father had a possible skin cancer of unknown type removed and biopsied recently Oncologic: Reports: None - Tobacco Use Smoking Status *Q: Never Smoker - Caffeine Use Caffeine Use: Reports: Coffee - Alcohol Use Alcohol Use History: No - Recreational Drug Use Recreational Drug Use: No - Living Situation & Occupation Living situation: Reports: ( is Ricardo Mathias. She is a college graduate and a [id number] mom. She does not use tobacco, drugs, or alcohol.), with Spouse, with Family (4 kids) Occupation: Unemployed ED ROS GENERAL - Review of Systems Review Of Systems: ROS reveals no pertinent complaints other than HPI. ED EXAM, GI/ABD - Physical Exam Exam: See Below Exam Limited By: No Limitations General Appearance: Alert, WD/WN, No Apparent Distress (appears uncomfortable) Eyes: Bilateral: Normal Appearance, EOMI Ears: Normal External Exam, Hearing Grossly Normal Nose: Normal Inspection Throat/Mouth: Normal Inspection, Normal Lips, Normal Voice, No Airway Compromise Head: Atraumatic, Normocephalic Neck: Normal Inspection, Full Range of Motion Respiratory/Chest: No Respiratory Distress, Lungs Clear, Normal Breath Sounds, No Accessory Muscle Use Cardiovascular: Normal Peripheral Pulses, Regular Rate, Rhythm, No Edema, No Gallop, No JVD, No Murmur, No Rub GI/Abdominal Exam: Normal Bowel Sounds, Soft, No Organomegaly, No Abnormal Bruit , Tender (left upper quadrant only. Nontender elsewhere.), Other (Protruberant abdomen) (Female) Exam: Deferred Rectal (Female) Exam: Deferred Back Exam: Normal Inspection, Full Range of Motion. No: CVA Tenderness (L), CVA Tenderness (R) Extremities: Normal Inspection, Normal Range of Motion, No Pedal Edema, Normal Capillary Refill Neurological: Alert, Oriented, Normal Cognition, No Motor/Sensory Deficits Psychiatric: Normal Affect Skin Exam: Warm, Dry, Intact, Normal Color, No Rash Course - Vital Signs Last Recorded V/S: Last Vital Signs Temp 36.3 C 04/25/18 01:39 Pulse 83 04/25/18 01:39 Resp 16 04/25/18 01:39 BP 129/80 04/25/18 01:39 Pulse Ox 98 04/25/18 01:39 - Orders/Labs/Meds Orders: Active Orders 24 hr Category Date Time Status Abdomen Pelvis w Cont [CT] Stat Exams 04/25/18 01:55 Taken Sodium Chloride 0.9% [Normal Saline] 1,000 ml Med 04/25/18 02:00 Active IV ASDIRECTED Medication Orders Sodium Chloride (Normal Saline) 1,000 mls @ 150 mls/hr IV ASDIRECTED MELLISSA Last Admin: 04/25/18 02:06 Dose: 150 mls/hr Labs: Laboratory Tests 04/25/18 04/25/18 Range/Units 01:50 01:50 WBC 12.42 H (3.98-10.04) K/mm3 RBC 4.46 (3.98-5.22) M/mm3 Hgb 12.6 (11.2-15.7) gm/L Hct 37.7 (34.1-44.9) % MCV 84.5 (79.4-94.8) fl MCH 28.3 (25.6-32.2) pg MCHC 33.4 (32.2-35.5) g/dl RDW Std Deviation 38.8 (36.4-46.3) fL Plt Count 346 (182-369) K/mm3 MPV 10.3 (9.4-12.3) fl Neutrophils % (Manual) 77 H (40-60) % Band Neutrophils % 0 (0-10) % Lymphocytes % (Manual) 11 L (20-40) % Atypical Lymphs % 0 % Monocytes % (Manual) 11 H (2-10) % Eosinophils % (Manual) 1 (0.7-5.8) % Basophils % (Manual) 0 L (0.1-1.2) Platelet Estimate Adequate Plt Morphology Comment Normal RBC Morph Comment Normal Sodium 135 L (136-145) mEq/L Potassium 3.7 (3.5-5.1) mEq/L Chloride 97 L (98-107) mEq/L Carbon Dioxide 25 (21-32) mEq/L Anion Gap 16.7 H (5-15) BUN 9 (7-18) mg/dL Creatinine 0.7 (0.55-1.02) mg/dL Est Cr Clr Drug Dosing 107.67 mL/min Estimated GFR (MDRD) > 60 (>60) mL/min BUN/Creatinine Ratio 12.9 L (14-18) Glucose 114 H (74-106) mg/dL Calcium 9.8 (8.5-10.1) mg/dL Total Bilirubin 0.6 (0.2-1.0) mg/dL AST 61 H (15-37) U/L ALT 57 (14-59) U/L Alkaline Phosphatase 161 H (46-116) U/L Total Protein 8.8 H (6.4-8.2) g/dl Albumin 3.9 (3.4-5.0) g/dl Globulin 4.9 gm/dL Albumin/Globulin Ratio 0.8 L (1-2) Lipase 116 (73-393) U/L Meds: Medications Generic Name Dose Route Start Last Admin Trade Name Freq PRN Reason Stop Dose Admin Sodium Chloride 1,000 mls @ 150 mls/hr 04/25/18 02:00 04/25/18 02:06 Normal Saline IV 150 mls/hr ASDIRECTED MELLISSA Administration Discontinued Medications Generic Name Dose Route Start Last Admin Trade Name Freq PRN Reason Stop Dose Admin Diatrizoate Meglum/Diatrizoate Sod 120 ml 04/25/18 03:03 04/25/18 03:27 Gastrografin 37% PO 04/25/18 03:04 120 ml ONETIME ONE Administration Hydromorphone HCl 1 mg 04/25/18 01:55 04/25/18 02:06 Dilaudid IVPUSH 04/25/18 01:56 1 mg ONETIME STA Administration Hydromorphone HCl 1 mg 04/25/18 04:51 04/25/18 04:56 Dilaudid IVPUSH 04/25/18 04:52 1 mg ONETIME ONE Administration Iopamidol 25 ml 04/25/18 03:03 04/25/18 03:28 Isovue-300 (61%) IVPUSH 04/25/18 03:04 25 ml ONETIME ONE Administration Iopamidol 100 ml 04/25/18 03:03 04/25/18 03:28 Isovue-300 (61%) IVPUSH 04/25/18 03:04 100 ml ONETIME ONE Administration Ondansetron HCl 4 mg 04/25/18 01:55 04/25/18 02:06 Zofran IVPUSH 04/25/18 01:56 4 mg ONETIME ONE Administration - Re-Assessments/Exams Free Text/Narrative Re-Assessment/Exam: 04/25/18 05:02 CT of the abdomen and pelvis with oral and IV contrast is read by [facility] as: 1. No acute abnormality. 2. Multiple liver lesions, compatible with the known liver metastases. Compared to a prior CT of 03/19/2018, there appears to be mild progression of these lesions, as described. 3. Findings in the distal sigmoid colon which could represent the known colonic neoplasm. No evidence of bowel obstruction. See above for remaining findings. 04/25/18 05:18 Test results discussed with the patient and her . Unfortunately, the cause of the patient's left upper quadrant abdominal pain is unknown, as her workup tonight is unremarkable. I do not see an indication to admit the patient to the hospital, and the patient and her agree. [facility] the [facility] Blaine and Zofran. The patient will follow-up with her Oncologist in [place], Dr. Byers, this coming 04/28/2018. Departure - Departure Time of Disposition: 05:19 Disposition: Home, Self-Care 01 Condition: Fair Clinical Impression: Left upper quadrant abdominal pain of unknown etiology, History of colon cancer , stage IV - Discharge Information *PRESCRIPTION DRUG MONITORING PROGRAM REVIEWED*: Not Applicable *COPY OF PRESCRIPTION DRUG MONITORING REPORT IN PATIENT ERNIE: Not Applicable Referrals: Rigoberto Dozier MD [Primary Care Provider] - Rinku Byers MD [Ordering Only Provider] - Forms: ED Department Discharge Additional Instructions: You were seen in the emergency room for upper left abdominal pain, with nausea. Workup in the ER included blood work and a CT scan of your abdomen and pelvis with oral and IV contrast. While your CT scan saw the previously known about distal colon tumor and liver metastases, it did not see any abnormalities in your upper left abdomen, and your blood work was unremarkable. The cause of your pain is not known. Prescriptions for the pain medicine Blaine and the anti-nausea medicine Zofran have been prescribed via [facility]. Take 1 to 2 tablets of Blaine up to every 6 hours, as needed for pain. If you take Blaine, do not drive for 10 hours afterwards. Blaine will likely cause constipation, so consider taking a stool softener, such as MiraLAX, with plenty of water. Dissolve one tablet of Zofran on your tongue up to every 8 hours, as needed for nausea/vomiting. Follow-up with your Oncologist, Dr. Rinku Byers, at your previously scheduled appointment this coming 04/28/2018. If any other problems, please do not hesitate to return to the ER. - My Orders Last 24 Hours: My Active Orders 04/25/18 01:55 Abdomen Pelvis w Cont [CT] Stat 04/25/18 02:00 Sodium Chloride 0.9% [Normal Saline] 1,000 ml IV ASDIRECTED - Assessment/Plan Last 24 Hours: My Active Orders 04/25/18 01:55 Abdomen Pelvis w Cont [CT] Stat 04/25/18 02:00 Sodium Chloride 0.9% [Normal Saline] 1,000 ml IV ASDIRECTED
[2018-04-25] MEDS ORDERED: Iopamidol 612 MG/ML 100 ML Bottle IVPUSH ONE (03:03)
[2018-04-25] MEDS ORDERED: Iopamidol 612 MG/ML 50 ML SDV IVPUSH ONE (03:03)
[2018-04-25] MEDS ORDERED: Diatrizoate Meglumine/Diatrizoate Sodium 37% 120 ML Bottle PO ONE (03:03)
[2018-04-25] MEDS ORDERED: HYDROmorphone 1 MG/ML Syringe IVPUSH ONE (04:51)
--- NOTE | 2018-04-25 15:05 | CT ---
CT abdomen and pelvis Technique: Multiple axial sections were obtained from above the dome of the diaphragm inferiorly to the pubic symphysis. Intravenous and oral contrast was utilized. Delayed images were also obtained through the abdomen and pelvis. Comparison: Prior CT abdomen and pelvis exam of 03/19/18. Findings: Multiple liver lesions are identified. These are identified within both right and left lobes of the liver. Largest lesion within the right lobe measures 8.7 cm x 6.[address] exam this measures 7.6 x 5.1 cm in similar dimensions. Largest lesion within the left lobe measures 6.5 cm x 7.3 cm. On previous exam this measures about 5.6 cm x 6.4 cm in similar dimensions. Other lesions are seen which have also slightly increased in size from previous study. Spleen appears within normal limits. Adrenal glands show no nodule. Kidneys show symmetric contrast enhancement without hydronephrosis or mass. Pancreas is within normal limits. Aorta shows no aneurysm. No retroperitoneal adenopathy or mesenteric abnormalities are seen. No pelvic mass or adenopathy is appreciated. Slight increased stool within the right colon is seen. Questionable wall thickening within the distal sigmoid colon is seen. Bone window settings were reviewed which appear within normal limits for the patient's age. Delayed images show contrast excretion from both kidneys into nondilated ureters as well as contrast within the bladder. Impression: 1. Enlarging liver metastasis from prior CT exam of 03/19/18. 2. Mild increased stool within the right colon. 3. Questionable wall thickening within the distal sigmoid colon which could represent the patient's known colonic carcinoma, please correlate. 4. No additional abnormality is seen. Diagnostic code #9 I agree with preliminary report from [facility], finalized on 04/25/18, 5:56 AM Central Time
== END 2018-04-25 05:36 | disposition home or self-care (01) ==
LOC: JD.ED 01:38
DX: R10.12 Left upper quadrant pain (principal); R11.0 Nausea; C18.9 Malignant neoplasm of colon, unspecified; E03.9 Hypothyroidism, unspecified; F17.210 Nicotine dependence, cigarettes, uncomplicated
CPT/HCPCS: 36415; 74177; 80053; 83690; 85007; 85027; 96361; 96374; 96375; 96376; 99284; J1170; J2405; J7040; Q9963; Q9967

== ENCOUNTER 2018-07-15 23:09 | Emergency (ER) | payer BC ==
[2018-07-15 23:32] VITALS: BP 108/80
[2018-07-15] MEDS ORDERED: Sodium Chloride 0.9% 1,000 ML IV SCH (23:45)
[2018-07-15] MEDS ORDERED: Ondansetron 4 MG/2 ML SDV IVPUSH ONE (23:47)
[2018-07-15] MEDS ORDERED: Sodium Chloride 0.9% 10 ML Syringe FLUSH PRN (23:47)
[2018-07-15] MEDS ORDERED: HYDROmorphone 1 MG/ML Syringe IVPUSH ONE (23:48)
[2018-07-16] MEDS ORDERED: HYDROmorphone 1 MG/ML Syringe IVPUSH ONE (03:15)
--- NOTE | 2018-07-16 03:24 | EDM.PDOC ---
ED HPI GENERAL MEDICAL PROBLEM - General Chief Complaint: Back Pain or Injury Stated Complaint: BACK PAIN Time Seen by Provider: 07/15/18 23:23 Source of Information: Reports: Patient, Family, Provider History Limitations: Reports: No Limitations - History of Present Illness INITIAL COMMENTS - FREE TEXT/NARRATIVE: The patient presents with low back pain with more pain in the right flank. This has been going on for a few days. Her provider Allyssa Trammell called to let me know she was coming in. The patient has a complex history. She was recently diagnosed with stage 4 colon cancer with mets to her liver. She went to the [facility] and she had chemotherapy. She did not tolerate the chemo. She opted to not do chemo anymore. She is trying an herbal supplement. She was told with chemo she had about 2 years to live without it would be much shorter. She recently found out she is . She has been seeing Dr Dozier and Allyssa Trammell. The patient's HCG has been going up. She had some lab work done today and there was some blood in her urine. Allyssa Trammell called the patient and she had more pain. She was advised to come in for labs and an US of her kidney and pelvic US to rule out ectopic . The patient denies fever, chills, or cough. She has no chest pain or shortness of breath. Onset: Gradual Duration: Day(s): Location: Reports: Back Quality: Reports: Sharp Severity: Moderate Improves with: Reports: None Worsens with: Reports: None Associated Symptoms: Reports: No Other Symptoms Back Pain Score (Numeric/FACES): 5 - Related Data Allergies Allergy/AdvReac Type Severity Reaction Status Date / Time No Known Allergies Allergy Verified 07/15/18 23:20 Home Meds: Home Meds Progesterone,Micronized [Endometrin] 100 mg VAG BID 07/15/18 [History] Hydrocodone/Acetaminophen [Hydrocodon-Acetaminophen 5-325] 1 - 2 each PO Q6HR PRN #20 tablet 07/16/18 [Rx] Past Medical History HEENT History: Reports: Impaired Vision Cardiovascular History: Reports: None Respiratory History: Reports: None Gastrointestinal History: Reports: Hemorrhoids Other Gastrointestinal History: Colon CA which has metastisized. 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 Never on insulin, never on oral meds. Checked FSBG at home in the month of January and found sugars to be fairly close to WNL per pt and no FSBG checks since then. 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 - Past Surgical History Head Surgeries/Procedures: Reports: None HEENT Surgical History: Reports: Oral Surgery Other HEENT Surgeries/Procedures: [place] teeth surgery x4 2013 GI Surgical History: Reports: Appendectomy, Colonoscopy, Other (See Below) Musculoskeletal Surgical History: Reports: Other (See Below) Other Musculoskeletal Surgeries/Procedures:: Shoulder reduction Social & Family History - Family History Family Medical History: Noncontributory Cardiac: Reports: High Cholesterol, Hypertension Other Cardiac Family History: Pt's father does have high cholesterol, and pt's mother MAY have HTN- pt not certain, otherwise, no one ill or with hx of illness pt is aware of in her or 's family. Dermatologic: Reports: Other (See Below) Other Dermatologic Family History: Father had a possible skin cancer of unknown type removed and biopsied recently Oncologic: Reports: None - Tobacco Use Smoking Status *Q: Never Smoker Second Hand Smoke Exposure: No - Caffeine Use Caffeine Use: Reports: None - Recreational Drug Use Recreational Drug Use: No - Living Situation & Occupation Living situation: Reports: ( is Ricardo Mathias. She is a college graduate and a [id number] mom. She does not use tobacco, drugs, or alcohol.), with Spouse, with Family (4 kids) Occupation: Unemployed ED ROS GENERAL - Review of Systems Review Of Systems: See Below Constitutional: Reports: No Symptoms HEENT: Reports: No Symptoms Respiratory: Reports: No Symptoms Cardiovascular: Reports: No Symptoms Endocrine: Reports: No Symptoms GI/Abdominal: Reports: No Symptoms : Reports: Flank Pain Musculoskeletal: Reports: Back Pain ED EXAM,LOWER BACK PAIN/INJURY - Physical Exam Exam: See Below Exam Limited By: No Limitations General Appearance: Alert, No Apparent Distress Ears: Normal External Exam Nose: Normal Inspection Head: Atraumatic, Normocephalic Neck: Normal Inspection Respiratory/Chest: No Respiratory Distress, Lungs Clear, Normal Breath Sounds Cardiovascular: Regular Rate, Rhythm, No Edema, No Murmur GI/Abdominal: Soft, Non-Tender, No Organomegaly, No Mass Back Exam: Other (Pain upon palpation to the lower back with more pain to the right then left.) Extremities: Normal Inspection Neurological: Alert, No Motor/Sensory Deficits, Oriented x 3 Course - Vital Signs Last Recorded V/S: Last Vital Signs Temp 98.6 F 07/15/18 23:28 Pulse 92 07/15/18 23:28 Resp 18 07/15/18 23:28 BP 108/80 07/15/18 23:28 Pulse Ox 100 07/15/18 23:28 - Orders/Labs/Meds Orders: Active Orders 24 hr Category Date Time Status Peripheral IV Care [RC] . DIRECTED Care 07/15/18 23:48 Active OB Transvaginal [US] Stat Exams 07/15/18 23:49 Taken Retroperitoneal Comp [US] Stat Exams 07/15/18 23:51 Taken Sodium Chloride 0.9% [Normal Saline] 1,000 ml Med 07/15/18 23:45 Active IV ASDIRECTED Sodium Chloride 0.9% [Saline Flush] Med 07/15/18 23:47 Active 10 ml FLUSH ASDIRECTED PRN ED Antiemetic Medication Reflex [OM.PC] Stat Oth 07/15/18 23:47 Ordered Peripheral IV Insertion Adult [OM.PC] Stat Oth 07/15/18 23:47 Ordered Medication Orders Sodium Chloride (Normal Saline) 1,000 mls @ 125 mls/hr IV ASDIRECTED MELLISSA Last Admin: 07/16/18 00:06 Dose: 125 mls/hr Sodium Chloride (Saline Flush) 10 ml FLUSH ASDIRECTED PRN PRN Reason: Keep Vein Open Last Admin: 07/16/18 00:10 Dose: 10 ml Labs: Laboratory Tests 07/15/18 07/16/18 07/16/18 Range/Units 00:10 00:10 01:05 WBC 10.89 H (3.98-10.04) K/mm3 RBC 3.91 L (3.98-5.22) M/mm3 Hgb 10.9 L (11.2-15.7) gm/L Hct 32.9 L (34.1-44.9) % MCV 84.1 (79.4-94.8) fl MCH 27.9 (25.6-32.2) pg MCHC 33.1 (32.2-35.5) g/dl RDW Std Deviation 41.3 (36.4-46.3) fL Plt Count 359 (182-369) K/mm3 MPV 9.9 (9.4-12.3) fl Neut % (Auto) 66.2 (34.0-71.1) % Lymph % (Auto) 22.3 (19.3-51.7) % Ross % (Auto) 10.0 (4.7-12.5) % Eos % (Auto) 1.0 (0.7-5.8) Baso % (Auto) 0.3 (0.1-1.2) % Neut # (Auto) 7.21 H (1.56-6.13) K/mm3 Lymph # (Auto) 2.43 (1.18-3.74) K/mm3 Ross # (Auto) 1.09 H (0.24-0.36) K/mm3 Eos # (Auto) 0.11 (0.04-0.36) K/mm3 Baso # (Auto) 0.03 (0.01-0.08) K/mm3 Manual Slide Review Abnormal smear Sodium 135 L (136-145) mEq/L Potassium 3.7 (3.5-5.1) mEq/L Chloride 100 (98-107) mEq/L Carbon Dioxide 23 (21-32) mEq/L Anion Gap 15.7 H (5-15) BUN 12 (7-18) mg/dL Creatinine 0.7 (0.55-1.02) mg/dL Est Cr Clr Drug Dosing 111.01 mL/min Estimated GFR (MDRD) > 60 (>60) mL/min BUN/Creatinine Ratio 17.1 (14-18) Glucose 112 H (74-106) mg/dL Calcium 9.7 (8.5-10.1) mg/dL Total Bilirubin 0.4 (0.2-1.0) mg/dL AST 72 H (15-37) U/L ALT 72 H (14-59) U/L Alkaline Phosphatase 222 H (46-116) U/L Total Protein 8.2 (6.4-8.2) g/dl Albumin 3.3 L (3.4-5.0) g/dl Globulin 4.9 gm/dL Albumin/Globulin Ratio 0.7 L (1-2) Lipase 143 (73-393) U/L Urine Color Yellow (Yellow) Urine Appearance Clear (Clear) Urine pH 7.0 (5.0-8.0) Ur Specific [place] 1.010 (1.005-1.030) Urine Protein Negative (Negative) Urine Glucose (UA) Negative (Negative) Urine Ketones Negative (Negative) Urine Occult Blood Trace-lysed H (Negative) Urine Nitrite Negative (Negative) Urine Bilirubin Negative (Negative) Urine Urobilinogen 0.2 (0.2-1.0) Ur Leukocyte Esterase Negative (Negative) Urine RBC 0-5 (0-5) /hpf Urine WBC 0-5 (0-5) /hpf Ur Epithelial Cells Not Reportable Ur Squamous Epith Cells 5-10 H (0-5) /hpf Urine Bacteria Not seen (FEW) /hpf Urine Mucus Not seen (FEW) /hpf Meds: Medications Generic Name Dose Route Start Last Admin Trade Name Freq PRN Reason Stop Dose Admin Sodium Chloride 1,000 mls @ 125 mls/hr 07/15/18 23:45 07/16/18 00:06 Normal Saline IV 125 mls/hr ASDIRECTED MELLISSA Administration Sodium Chloride 10 ml 07/15/18 23:47 07/16/18 00:10 Saline Flush FLUSH 10 ml ASDIRECTED PRN Administration Keep Vein Open Discontinued Medications Generic Name Dose Route Start Last Admin Trade Name Freq PRN Reason Stop Dose Admin Hydromorphone HCl 0.5 mg 07/15/18 23:48 07/16/18 00:08 Dilaudid IVPUSH 07/15/18 23:49 0.5 mg ONETIME ONE Administration Hydromorphone HCl 0.5 mg 07/16/18 03:15 07/16/18 03:27 Dilaudid IVPUSH 07/16/18 03:16 0.5 mg ONETIME ONE Administration Ondansetron HCl 4 mg 07/15/18 23:47 07/16/18 00:06 Zofran IVPUSH 07/15/18 23:48 4 mg ONETIME ONE Administration - Re-Assessments/Exams Free Text/Narrative Re-Assessment/Exam: 07/16/18 03:27 I ordered an IV NS at 125ml/hr, zofran 4mg IV, dilaudid 0.5mg IV, labs, UA and an US of her kidney and an transvaginal US. Her WBC was slightly elevated at 10.89. Her Hgb was low at 10.9. Her Na was a little low at 135. Her anion gap was elevated at 15.7. Her AST was elevated along with her ALT at 72. Her alk phos was elevated at 222. Her lipase was normal. Her UA shows no UTI. She still has more pain so I ordered dilaudid 0.5mg IV. I am waiting on the US reports there has been a very high volume at [facility] and they are behind right now. 07/16/18 03:54 The transvaginal US shows an intrauterine gestational sac containing a yolk sac with a sonographic gestational age of 5 weeks 3 days. No pole appreciated at this time. Subchorionic hematoma measuring 1.1 X 0.4 X 1cm. No sonographic evidence of ovarian torsion. The retroperitoneal US was unremarkable. This could be muskuloskeletal pain. She was tender in her back. I will give her a few hydrocodone for pain as needed and follow up with her doctor. Departure - Departure Time of Disposition: 04:00 Disposition: Home, Self-Care 01 Condition: Good Clinical Impression: Right low back pain Qualifiers: Chronicity: acute Sciatica presence: without sciatica Qualified Code(s): M54.5 - Low back pain - Discharge Information *PRESCRIPTION DRUG MONITORING PROGRAM REVIEWED*: No *COPY OF PRESCRIPTION DRUG MONITORING REPORT IN PATIENT ERNIE: No Prescriptions: Hydrocodone/Acetaminophen [Hydrocodon-Acetaminophen 5-325] 1 - 2 each PO Q6HR PRN #20 tablet PRN Reason: Pain Referrals: Rigoberto Dozier MD [Primary Care Provider] - 1 Week Forms: ED Department Discharge Additional Instructions: Take tylenol for the pain. If that does not work, try the hydrocodone. Follow up with Dr Dozier in 1 week. Please return if you are worse. - My Orders Last 24 Hours: My Active Orders 07/15/18 23:45 Sodium Chloride 0.9% [Normal Saline] 1,000 ml IV ASDIRECTED 07/15/18 23:47 Sodium Chloride 0.9% [Saline Flush] 10 ml FLUSH ASDIRECTED PRN ED Antiemetic Medication Reflex [OM.PC] Stat Peripheral IV Insertion Adult [OM.PC] Stat 07/15/18 23:48 Peripheral IV Care [RC] . DIRECTED 07/15/18 23:49 OB Transvaginal [US] Stat 07/15/18 23:51 Retroperitoneal Comp [US] Stat - Assessment/Plan Last 24 Hours: My Active Orders 07/15/18 23:45 Sodium Chloride 0.9% [Normal Saline] 1,000 ml IV ASDIRECTED 07/15/18 23:47 Sodium Chloride 0.9% [Saline Flush] 10 ml FLUSH ASDIRECTED PRN ED Antiemetic Medication Reflex [OM.PC] Stat Peripheral IV Insertion Adult [OM.PC] Stat 07/15/18 23:48 Peripheral IV Care [RC] . DIRECTED 07/15/18 23:49 OB Transvaginal [US] Stat 07/15/18 23:51 Retroperitoneal Comp [US] Stat
--- NOTE | 2018-07-16 07:19 | US ---
Renal ultrasound: Multiple real-time images of the kidneys were obtained. Comparison: Kidneys show no hydronephrosis or mass. Resistivity indices are normal within both kidneys. No abnormality is seen within the bladder. Measurements: Right kidney length: 12.1 cm Left kidney length: 12.2 cm Impression: 1. No abnormality appreciated on renal ultrasound exam. Diagnostic code #1 I agree with preliminary report from [facility], finalized on 07/16/18, 4:46 AM Central Time
--- NOTE | 2018-07-16 07:19 | US ---
First trimester obstetrical ultrasound: Multiple real-time images were obtained. Single intrauterine gestational sac is seen. Subchorionic hemorrhage is noted. No pole identified at this time. Small amount of free fluid seen within the pelvis. Ovaries are within normal limits. Measurements: Gestational sac: 0.83 cm 5 weeks 3 days Impression: 1. Single intrauterine gestational sac. Sac size measures 5 weeks 3 days. 2. No pole seen at this time. Recommend repeat study in 11 days to further evaluate. 3. Small subchorionic hemorrhage. Diagnostic code #2 I agree with preliminary report from [facility], finalized on 07/16/18, 4:41 AM Central Time
== END 2018-07-16 04:11 | disposition home or self-care (01) ==
LOC: JD.ED 23:09
DX: O99.89 Other specified diseases and conditions complicating pregnancy, childbirth and the puerperium (principal); M54.5 Low back pain; C18.9 Malignant neoplasm of colon, unspecified; C78.7 Secondary malignant neoplasm of liver and intrahepatic bile duct; Z79.899 Other long term (current) drug therapy; Z3A.01 Less than 8 weeks gestation of pregnancy; X58.XXXA Exposure to other specified factors, initial encounter
CPT/HCPCS: 36415; 76770; 76817; 80053; 81001; 83690; 85025; 96361; 96374; 96375; 96376; 99284; J1170; J2405; J7040

== ENCOUNTER 2018-07-23 11:00 | Observation (INO) | payer BC ==
[2018-07-23] MEDS ORDERED: Lactated Ringers 1,000 ML IV SCH ×2 (12:30→14:30)
[2018-07-23] MEDS ORDERED: cefTRIAXone 2 GM Vial IVPUSH SCH (13:00)
[2018-07-23] MEDS: Acetaminophen/oxyCODONE 325-5 MG Tab PO PRN ×2 (13:22→18:39)
[2018-07-23] MEDS ORDERED: cefTRIAXone 1 GM in Sodium Chloride 0.9% 100 ML IV SCH (13:30)
--- NOTE | 2018-07-23 13:51 | CR ---
Chest: Frontal view of the chest was obtained. Comparison: No prior chest x-ray. Prior chest CT study of 03/19/18. Heart size and mediastinum are normal. Lungs are clear with no acute parenchymal change. Right-sided infusion port is seen. Tip lies within the right atria. Bony structures are grossly intact. Impression: 1. Right-sided infusion port. Nothing acute is seen on frontal chest x-ray. Diagnostic code #2
--- NOTE | 2018-07-23 15:12 | US ---
Abdominal ultrasound: Multiple real-time images of the abdomen were obtained. Comparison: Prior CT abdomen and pelvis exam of 04/25/18 Multiple liver masses are identified. These are noted within both right and left lobes of the liver. Largest lesion within the left lobe measures up to 9.5 cm. When compared to prior CT exam this appears to have increased in size although comparison is difficult due to differences in the modalities. Largest lesion within the right lobe is 9.2 cm which also appears slightly increased in size from prior exam but again confirmation is difficult due to the differences in modality. Gallbladder shows no shadowing gallstones. No gallbladder wall thickening or biliary duct dilatation is seen. Kidneys show no hydronephrosis or mass. Right kidney measures 12.7 cm in length. Left kidney measures 11.9 cm in length. Pancreas shows no discrete abnormality. Aorta shows no aneurysm. Inferior vena cava is patent. Portal vein shows normal hepatopedal flow. Spleen size is normal at 12 cm. Soft tissue nodule is noted within the garett hepatis measuring 2.8 cm which is likely represents mildly enlarged lymph node. This is not seen on previous CT exam with certainty. Impression: 1. Liver masses as noted above which are suggested to have increased in size from prior CT exam although confirmation is difficult due to differences in modality. 2. Lymph node is felt to be present within the garett hepatis which is mildly enlarged which is not definitely seen on CT exam. 3. No additional abnormality is seen on abdominal ultrasound exam. Diagnostic code #9 Sewing Machine Assembler called report to Dr. Hien Krishnan at 14:49 on 07/23/2018
--- NOTE | 2018-07-23 16:36 | MR ---
MRI abdomen Technique: Various axial and coronal images were obtained. Intravenous contrast not utilized. Comparison: Previous abdominal ultrasound performed earlier in the same day (2:01 PM) and prior CT abdomen and pelvis study of 04/25/18. Findings: Multiple liver lesions are seen. These have increased in size from previous CT exam. Largest lesion within the right lobe measures 10.1 cm and largest lesion within the left lobe measures about 9.7 cm. Abnormal lymph node suggested on previous ultrasound is not appreciated on the MRI. Visualized kidneys appear within normal limits. Pancreas shows no discrete abnormality. Spleen appears within normal limits. Impression: 1. Multiple liver lesions several of which abut the capsule. These have increased in size from prior CT abdomen and pelvis exam of 04/25/18. Diagnostic code #9
[2018-07-23 17:41] VITALS: BP 122/68
--- NOTE | 2018-07-24 07:38 | MR ---
MRI pelvis Technique: T1 and T1 fat--suppressed axial; T1 fat-suppressed coronal images were obtained. Findings: Portions of the kidneys not seen on prior MRI abdomen exam are identified on this exam and appear within normal limits. Soft tissue thickening is seen within the sigmoid colon presumably representing the colonic carcinoma. This causes some luminal narrowing but no obstruction is seen with no bowel dilatation proximal to this area. This finding is difficult to compare to CT exam as it was not well-seen on previous CT study but felt to be fairly stable. Small intrauterine gestation is seen. No adnexal abnormalities or pelvic adenopathy is seen. Impression: 1. Soft tissue thickening of the sigmoid colon presumably representing colonic carcinoma. This is not well seen on prior CT study but felt to be fairly stable in size and appearance. 2. Intrauterine gestational sac. Diagnostic code #3 MTDD
== END 2018-07-23 18:40 | disposition home or self-care (01) ==
LOC: JD.OB 11:00
PROVIDERS: ADMIT Obstetrics & Gynecology; ATTEND Obstetrics & Gynecology
DX: O99.89 Other specified diseases and conditions complicating pregnancy, childbirth and the puerperium (principal); R50.9 Fever, unspecified; O9A.111 Malignant neoplasm complicating pregnancy, first trimester; C20 Malignant neoplasm of rectum; C78.7 Secondary malignant neoplasm of liver and intrahepatic bile duct; Z3A.01 Less than 8 weeks gestation of pregnancy
CPT/HCPCS: 36415; 71046; 72195; 74181; 76700; 83605; 83690; 85379; 86738; 87040; 87486; 87581; 87632; 87798; 87804; 87899; 96365; A9270; G0378; J0696; J1642; J7030; J7120

== ENCOUNTER 2020-04-02 12:05 | Emergency (ER) | payer BC ==
[2020-04-02] MEDS ORDERED: HYDROmorphone 1 MG/ML Syringe IVPUSH ONE (12:28)
[2020-04-02] MEDS ORDERED: Promethazine 25 MG in Sodium Chloride 0.9% 50 ML IV ONE (12:28)
[2020-04-02] MEDS ORDERED: Sodium Chloride 0.9% 1,000 ML IV ONE (12:29)
--- NOTE | 2020-04-02 12:37 | EDM.PDOC ---
ED HPI GENERAL MEDICAL PROBLEM - General Chief Complaint: Abdominal Pain Stated Complaint: [facility] Time Seen by Provider: 04/02/20 12:11 Source of Information: Reports: Patient, RN Notes Reviewed History Limitations: Reports: No Limitations - History of Present Illness INITIAL COMMENTS - FREE TEXT/NARRATIVE: Patient is a 29-year-old female who is brought to the ER by [facility] for the evaluation of her abdomen pain, nausea/vomiting. Patient notes she was awakened this morning at around 2 or 3 AM, with an intense stomach ache. She notes she has had these before as she has stage IV colon cancer. She states that the pain was pretty severe however and her regular medications do not seem to be touching the pain, and she is also having increasing nausea where she cannot keep much down for fluids. Ambulance did give her morphine, Zofran, and 500 cc of IV fluids in route to the hospital, she states the Zofran worked, but the morphine did nothing for the pain. She did have chemo done on Friday. She is also complaining of some diarrhea stools. Her oncologist is Dr. Rinku Xie. She is not had any fevers or chills, cough or shortness of breath at home. Bilateral Lower Back Pain Score (Numeric/FACES): 10 - Related Data Allergies Allergy/AdvReac Type Severity Reaction Status Date / Time No Known Allergies Allergy Verified 04/02/20 12:15 Home Meds: Home Meds Pnv No.95/Ferrous Fum/Folic AC [ Tablet] 1 each PO DAILY 07/23/18 [History] Docusate Sodium [Colace] 100 mg PO DAILY 11/06/18 [History] LORazepam [Ativan] 0.5 mg PO Q8HR PRN #20 tablet 11/07/18 [Rx] Pantoprazole [ProTONIX] 40 mg PO DAILY 11/14/18 [History] Potassium Chloride 10 meq PO DAILY 11/14/18 [History] Promethazine [Phenergan] 25 mg PO Q6H PRN #20 tab 04/02/20 [Rx] oxyCODONE 15 mg PO Q4H PRN 04/02/20 [History] oxyCODONE HCl [Oxycodone HCl ER] 60 mg PO BID 04/02/20 [History] Past Medical History HEENT History: Reports: Impaired Vision Gastrointestinal History: Reports: Hemorrhoids Other Gastrointestinal History: stage 4 colon cancer Genitourinary History: Reports: Other (See Below) 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 Oncologic (Cancer) History: Reports: Colon Other Oncologic History: Metastatic - stage 4 Dermatologic History: Reports: Eczema - Infectious Disease History Infectious Disease History: Reports: Herpes Other Infectious Disease History: HSV-1 - Past Surgical History HEENT Surgical History: Reports: Oral Surgery Other HEENT Surgeries/Procedures: [place] teeth surgery x4 2013 GI Surgical History: Reports: Appendectomy, Colonoscopy Other GI Surgeries/Procedures: Liver biopsy Musculoskeletal Surgical History: Reports: Other (See Below) Other Musculoskeletal Surgeries/Procedures:: Shoulder reduction Social & Family History - Family History Family Medical History: No Pertinent Family History Cardiac: Reports: High Cholesterol, Hypertension Other Cardiac Family History: Pt's father does have high cholesterol, and pt's mother MAY have HTN- pt not certain, otherwise, no one ill or with hx of illness pt is aware of in her or 's family. Dermatologic: Reports: Other (See Below) Other Dermatologic Family History: Father had a possible skin cancer of unknown type removed and biopsied recently Oncologic: Reports: Liver, Ovarian, Other (See Below) Other Oncologic Family History: testicular - Tobacco Use Tobacco Use Status *Q: Never Tobacco User - Caffeine Use Caffeine Use: Reports: None - Recreational Drug Use Recreational Drug Use: No - Living Situation & Occupation Living situation: Reports: ( is Ricardo Mathias. She is a college graduate and a [id number] mom. She does not use tobacco, drugs, or alcohol.), with Spouse, with Family (4 kids) Occupation: Unemployed ED ROS GENERAL - Review of Systems Review Of Systems: Comprehensive ROS is negative, except as noted in HPI. ED EXAM, GI/ABD - Physical Exam Exam: See Below Exam Limited By: No Limitations General Appearance: Alert, WD/WN, No Apparent Distress Respiratory/Chest: No Respiratory Distress, Lungs Clear, Normal Breath Sounds, No Accessory Muscle Use, Chest Non-Tender Cardiovascular: Normal Peripheral Pulses, Regular Rate, Rhythm, No Murmur GI/Abdominal Exam: Normal Bowel Sounds, Soft, No Distention, No Mass, Tender (upper abdomen) Extremities: Normal Inspection, Normal Capillary Refill Neurological: Alert, Oriented, Normal Cognition, No Motor/Sensory Deficits Psychiatric: Normal Affect, Normal Mood Skin Exam: Warm, Dry, Intact, No Rash, Pallor (generalized) Course - Vital Signs Last Recorded V/S: Last Vital Signs Temp 98.2 F 04/02/20 12:11 Pulse 76 04/02/20 12:11 Resp 14 04/02/20 12:11 BP 123/88 04/02/20 12:11 Pulse Ox 100 04/02/20 12:11 - Orders/Labs/Meds Orders: Active Orders 24 hr Category Date Time Status fentaNYL [Duragesic] Med 04/02/20 13:30 Ordered 25 mcg TRDERM Q72H Medication Orders Fentanyl (Duragesic) 25 mcg TRDERM Q72H MELLISSA Labs: Laboratory Tests 04/02/20 04/02/20 Range/Units 12:26 12:26 WBC 3.04 L (3.98-10.04) K/mm3 RBC 3.08 L (3.98-5.22) M/mm3 Hgb 8.4 L D (11.2-15.7) gm/dl Hct 27.6 L (34.1-44.9) % MCV 89.6 (79.4-94.8) fl MCH 27.3 (25.6-32.2) pg MCHC 30.4 L (32.2-35.5) g/dl RDW Std Deviation 64.0 H (36.4-46.3) fL Plt Count 193 D (182-369) K/mm3 MPV 11.1 (9.4-12.3) fl Neut % (Auto) 72.4 H (34.0-71.1) % Lymph % (Auto) 19.4 (19.3-51.7) % Kane % (Auto) 6.9 (4.7-12.5) % Eos % (Auto) 0.7 (0.7-5.8) Baso % (Auto) 0.3 (0.1-1.2) % Neut # (Auto) 2.20 (1.56-6.13) K/mm3 Lymph # (Auto) 0.59 L (1.18-3.74) K/mm3 Kane # (Auto) 0.21 L (0.24-0.36) K/mm3 Eos # (Auto) 0.02 L (0.04-0.36) K/mm3 Baso # (Auto) 0.01 (0.01-0.08) K/mm3 Manual Slide Review Not Reportable Sodium 136 (136-145) mEq/L Potassium 3.2 L (3.5-5.1) mEq/L Chloride 100 (98-107) mEq/L Carbon Dioxide 27 (21-32) mEq/L Anion Gap 12.2 (5-15) BUN 10 (7-18) mg/dL Creatinine 0.7 (0.55-1.02) mg/dL Est Cr Clr Drug Dosing 105.74 mL/min Estimated GFR (MDRD) > 60 (>60) mL/min BUN/Creatinine Ratio 14.3 (14-18) Glucose 128 H (74-106) mg/dL Calcium 9.1 (8.5-10.1) mg/dL Magnesium 1.9 (1.8-2.4) mg/dl Total Bilirubin 0.7 (0.2-1.0) mg/dL AST 74 H (15-37) U/L ALT 60 H (14-59) U/L Alkaline Phosphatase 581 H (46-116) U/L Total Protein 7.7 (6.4-8.2) g/dl Albumin 2.9 L (3.4-5.0) g/dl Globulin 4.8 gm/dL Albumin/Globulin Ratio 0.6 L (1-2) Meds: Medications Generic Name Dose Route Start Last Admin Trade Name Freq PRN Reason Stop Dose Admin Fentanyl 25 mcg 04/02/20 13:30 Duragesic TRDERM Q72H MELLISSA Discontinued Medications Generic Name Dose Route Start Last Admin Trade Name Freq PRN Reason Stop Dose Admin Hydromorphone HCl 1 mg 04/02/20 12:28 04/02/20 12:36 Dilaudid IVPUSH 04/02/20 12:29 1 mg ONETIME ONE Administration Hydromorphone HCl 0.5 mg 04/02/20 13:26 04/02/20 13:43 Dilaudid IVPUSH 04/02/20 13:27 0.5 mg ONETIME ONE Administration Promethazine HCl 25 mg/ Sodium 51 mls @ 100 mls/hr 04/02/20 12:28 04/02/20 12:36 Chloride IV 04/02/20 12:58 100 mls/hr ONETIME ONE Administration Sodium Chloride 1,000 mls @ 999 mls/hr 04/02/20 12:29 04/02/20 12:37 Normal Saline IV 04/02/20 13:29 999 mls/hr ONETIME ONE Administration Loperamide HCl 4 mg 04/02/20 13:26 04/02/20 13:43 Imodium PO 04/02/20 13:27 4 mg ONETIME ONE Administration Potassium Chloride 40 meq 04/02/20 13:26 04/02/20 13:43 Klor-Con M20 PO 04/02/20 13:27 40 meq ONETIME ONE Administration - Re-Assessments/Exams Free Text/Narrative Re-Assessment/Exam: 04/02/20 12:38 Patient presents to the ED for her ongoing abdomen pain and nausea/vomiting. We will get her some more IV fluids, IV nausea meds, IV pain meds, check some labs and try to get her more comfortable. If she cannot tolerate p.o. medications or if they are not helping we might need to think about a transdermal fentanyl patch. 04/02/20 14:33 Patient was able to achieve some pain control with the IV Dilaudid, and her nausea is much better, she would like some Phenergan to go home with. This is fine with me. As her p.o. meds are not really touching the pain, we will try a fentanyl patch for her ongoing pain due to her metastatic cancer. We will start out at a 12 and advance to 25 if she is needing more pain management. She will follow-up with her oncologist tomorrow for ongoing pain management. Departure - Departure Time of Disposition: 14:34 Disposition: Home, Self-Care 01 Condition: Good Clinical Impression: Pain in the abdomen Qualifiers: Abdominal location: generalized Qualified Code(s): R10.84 - Generalized abdominal pain Metastatic cancer Qualifiers: Area of secondary neoplastic involvement: unspecified site Qualified Code(s): C79.9 - Secondary malignant neoplasm of unspecified site Nausea and vomiting Qualifiers: Vomiting type: unspecified Vomiting Intractability: non-intractable Qualified Code(s): R11.2 - Nausea with vomiting, unspecified - Discharge Information *PRESCRIPTION DRUG MONITORING PROGRAM REVIEWED*: No *COPY OF PRESCRIPTION DRUG MONITORING REPORT IN PATIENT ERNIE: No Prescriptions: Promethazine [Phenergan] 25 mg PO Q6H PRN #20 tab PRN Reason: Nausea Instructions: Nausea and Vomiting, Adult, [id number] Referrals: PCP,None [Primary Care Provider] - Forms: ED Department Discharge Additional Instructions: You were evaluated for your abdomen pain, along with your nausea and vomiting. You were given some IV fluids, IV pain medications and IV nausea medications, this seemed to help relieve most your symptoms. For today's purposes, you will get more Phenergan tablets for ongoing nausea management. You did have a fentanyl patch placed for ongoing pain management. This is a 12.5 mcg dose, if this does not seem to be providing enough pain relief, you may apply the other half patch to equal 25 mcg. Please follow-up with your oncologist, Dr. Xie tomorrow for ongoing management. The fentanyl patches are good for 72 hours only. I would recommend you try to stick to clear liquid diet for the next 24 to 48 hours and advance to a bland as tolerated. Please return to the ER at any time if symptoms change or worsen. Sepsis Event Note (ED) - Evaluation Sepsis Screening Result: No Definite Risk - Focused Exam Vital Signs: Vital Signs Temp Pulse Resp BP Pulse Ox 04/02/20 12:11 98.2 F 76 14 123/88 100 - My Orders Last 24 Hours: My Active Orders 04/02/20 13:30 fentaNYL [Duragesic] 25 mcg TRDERM Q72H - Assessment/Plan Last 24 Hours: My Active Orders 04/02/20 13:30 fentaNYL [Duragesic] 25 mcg TRDERM Q72H
[2020-04-02] MEDS ORDERED: Potassium Chloride 20 MEQ Tab.ER PO ONE (13:26)
[2020-04-02] MEDS ORDERED: HYDROmorphone 0.5 MG/0.5 ML Syringe IVPUSH ONE (13:26)
[2020-04-02] MEDS ORDERED: Loperamide 2 MG Cap PO ONE (13:26)
[2020-04-02] MEDS ORDERED: fentaNYL 25 MCG/HR Transdermal Patch TRDERM SCH (13:30)
[2020-04-02 15:12] VITALS: BP 123/92; PULSE 71
== END 2020-04-02 15:00 | disposition home or self-care (01) ==
LOC: JD.ED 12:05
DX: C18.9 Malignant neoplasm of colon, unspecified (principal); C79.9 Secondary malignant neoplasm of unspecified site; Z90.49 Acquired absence of other specified parts of digestive tract; Z79.899 Other long term (current) drug therapy
CPT/HCPCS: 36415; 80053; 83735; 85025; 96365; 96375; 96376; 99284; A9270; J1170; J2550; J7030

== ENCOUNTER 2020-08-08 03:49 | Emergency (ER) | payer BC ==
[2020-08-08 04:09] VITALS: PULSE 75
[2020-08-08] MEDS ORDERED: Sodium Chloride 0.9% 1,000 ML IV ONE ×2 (04:16→05:48)
[2020-08-08] MEDS ORDERED: Ondansetron 4 MG/2 ML SDV IVPUSH ONE (04:16)
[2020-08-08] MEDS ORDERED: HYDROmorphone 1 MG/ML Syringe IVPUSH ONE ×3 (04:16→06:47)
--- NOTE | 2020-08-08 04:19 | EDM.PDOC ---
ED HPI GENERAL MEDICAL PROBLEM - General Chief Complaint: Abdominal Pain Stated Complaint: ABDOMINAL PAIN Time Seen by Provider: 08/08/20 03:59 Source of Information: Reports: Patient, Family () History Limitations: Reports: No Limitations - History of Present Illness INITIAL COMMENTS - FREE TEXT/NARRATIVE: Mrs. Mathias is a very pleasant 30-year-old woman with a past medical history significant for stage IV colon cancer, initially diagnosed on 03/27/2018, on chemotherapy, who now presents to the ED for abdominal pain, lower back pain, and generalized body pain. She states that her last chemotherapy dose was from 08/01/2020 through , 08/03/2020, with a Neulasta shot on 08/04/2020. She then developed the abdominal, lower back, and generalized body pain on 08/06/2020. It has been coming and going, but got more severe last night. She has had nausea, but denies recent vomiting. The patient is prescribed OxyContin, with her last dose around 23:00 last night. She states that the OxyContin is inadequate to treat her current pain, which prompted her to come to the ED. Here in the ED, the patient is found to be hemodynamically stable, afebrile, saturating 97% on room air. Other than her pain and nausea, the patient denies having a recent fever, chills, sore throat, ear pain, nasal or sinus congestion, cough, dyspnea, chest pain, palpitations, vomiting, constipation, diarrhea, urinary symptoms, recent weight gain or weight loss, recent bloody bowel movements or black bowel movements, recent joint aches, headaches, or rashes. The patient does not have a PCP. Her Oncologist is Dr. Orlando Baker. Generalized Pain Score (Numeric/FACES): 10 - Related Data Allergies Allergy/AdvReac Type Severity Reaction Status Date / Time No Known Allergies Allergy Verified 08/08/20 04:09 Home Meds: Home Meds Docusate Sodium [Colace] 100 mg PO DAILY 11/06/18 [History] LORazepam [Ativan] 0.5 mg PO Q8HR PRN #20 tablet 11/07/18 [Rx] Pantoprazole [ProTONIX] 40 mg PO DAILY 11/14/18 [History] Potassium Chloride 10 meq PO DAILY 11/14/18 [History] Promethazine [Phenergan] 25 mg PO Q6H PRN #20 tab 04/02/20 [Rx] oxyCODONE 15 mg PO Q4H PRN 04/02/20 [History] oxyCODONE HCl [Oxycodone HCl ER] 80 mg PO BID 04/02/20 [History] Past Medical History HEENT History: Reports: Impaired Vision Gastrointestinal History: Reports: Hemorrhoids : 5 Para: 4 Musculoskeletal History: Reports: Fracture (proximal lerft humerus) Endocrine/Metabolic History: Reports: Diabetes, Gestational Oncologic (Cancer) History: Reports: Colon (Dx'd 03/27/2018, stage IV, on CTx) Dermatologic History: Reports: Eczema - Infectious Disease History Infectious Disease History: Reports: Herpes - Past Surgical History HEENT Surgical History: Reports: Oral Surgery (dental extractions) GI Surgical History: Reports: Appendectomy, Colonoscopy, Other (See Below) (Hemorrhoid banding. Paracentesis x 2.) Musculoskeletal Surgical History: Reports: ORIF (left humerus) Oncologic Surgical History: Reports: Other (See Below) (Liver biopsy) Social & Family History - Tobacco Use Tobacco Use Status *Q: Never Tobacco User - Caffeine Use Caffeine Use: Reports: None - Alcohol Use Alcohol Use History: No - Recreational Drug Use Recreational Drug Use: No - Living Situation & Occupation Living situation: Reports: , with Spouse, with Family (4 kids) Occupation: Unemployed ED ROS GENERAL - Review of Systems Review Of Systems: Comprehensive ROS is negative, except as noted in HPI. ED EXAM, GENERAL - Physical Exam Exam: See Below Exam Limited By: No Limitations General Appearance: Alert, No Apparent Distress, Thin Eye Exam: Bilateral Eye: EOMI, Normal Inspection Ears: Normal External Exam, Hearing Grossly Normal Nose: Normal Inspection Throat/Mouth: Normal Inspection, Normal Lips, Normal Voice, No Airway Compromise Head: Atraumatic, Normocephalic Neck: Normal Inspection, Full Range of Motion Respiratory/Chest: No Respiratory Distress, Lungs Clear, Normal Breath Sounds, No Accessory Muscle Use Cardiovascular: Normal Peripheral Pulses, Regular Rate, Rhythm, No Edema, No Gallop, No JVD, No Murmur, No Rub Peripheral Pulses: 3+: Radial (L), Radial (R) GI/Abdominal: Normal Bowel Sounds, Soft, No Abnormal Bruit, No Mass, Tender (Considerable generalized abdominal tenderness), Mass (protuberant abdomen) Back Exam: Normal Inspection, Full Range of Motion, NT Extremities: Normal Inspection, Normal Range of Motion, No Pedal Edema, Normal Capillary Refill Neurological: Alert, Oriented, Normal Cognition, No Motor/Sensory Deficits Psychiatric: Normal Affect Skin Exam: Warm, Dry, Intact, Normal Color, No Rash Course - Vital Signs Last Recorded V/S: Last Vital Signs Temp 36.3 C 08/08/20 04:04 Pulse 75 08/08/20 04:04 Resp 18 08/08/20 04:04 BP 126/84 08/08/20 04:04 Pulse Ox 97 08/08/20 04:04 - Orders/Labs/Meds Orders: Active Orders 24 hr Category Date Time Status HYDROmorphone [Dilaudid] Med 08/08/20 06:47 Once 1 mg IVPUSH ONETIME ONE Sodium Chloride 0.9% [Normal Saline] 1,000 ml Med 08/08/20 05:48 Active IV ONETIME Medication Orders Sodium Chloride (Normal Saline) 1,000 mls @ 999 mls/hr IV ONETIME ONE Stop: 08/08/20 06:48 Last Admin: 08/08/20 06:06 Dose: 999 mls/hr Documented by: MIMI Labs: Laboratory Tests 08/08/20 08/08/20 Range/Units 05:00 05:00 WBC 8.70 (3.98-10.04) K/mm3 RBC 2.77 L (3.98-5.22) M/mm3 Hgb 7.5 L (11.2-15.7) gm/dl Hct 25.1 L (34.1-44.9) % MCV 90.6 (79.4-94.8) fl MCH 27.1 (25.6-32.2) pg MCHC 29.9 L (32.2-35.5) g/dl RDW Std Deviation 72.9 H (36.4-46.3) fL Plt Count 135 L (182-369) K/mm3 MPV 10.4 (9.4-12.3) fl Neutrophils % (Manual) 69 H (40-60) % Band Neutrophils % 8 (0-10) % Lymphocytes % (Manual) 13 L (20-40) % Atypical Lymphs % 0 % Monocytes % (Manual) 8 (2-10) % Eosinophils % (Manual) 1 (0.7-5.8) % Basophils % (Manual) 1 (0.1-1.2) Toxic Granulation 1+ slight Dohle Bodies 2+ moderate Platelet Estimate Adequate Polychromasia 1+ slight Hypochromasia 2+ moderate Anisocytosis 2+ moderate Macrocytosis 1+ slight Stomatocytes 1+ slight RBC Morph Comment Not Reportable Sodium 136 (136-145) mEq/L Potassium 3.8 (3.5-5.1) mEq/L Chloride 97 L (98-107) mEq/L Carbon Dioxide 29 (21-32) mEq/L Anion Gap 13.8 (5-15) BUN 13 (7-18) mg/dL Creatinine 0.6 (0.55-1.02) mg/dL Est Cr Clr Drug Dosing TNP Estimated GFR (MDRD) > 60 (>60) mL/min BUN/Creatinine Ratio 21.7 H (14-18) Glucose 127 H (74-106) mg/dL Calcium 9.1 (8.5-10.1) mg/dL Magnesium 1.9 (1.8-2.4) mg/dl Total Bilirubin 1.5 H (0.2-1.0) mg/dL AST 69 H (15-37) U/L ALT 58 (14-59) U/L Alkaline Phosphatase 812 H (46-116) U/L Total Protein 7.2 (6.4-8.2) g/dl Albumin 2.6 L (3.4-5.0) g/dl Globulin 4.6 gm/dL Albumin/Globulin Ratio 0.6 L (1-2) Meds: Medications Generic Name Dose Route Start Last Admin Trade Name Freq PRN Reason Stop Dose Admin Sodium Chloride 1,000 mls @ 999 mls/hr 08/08/20 05:48 08/08/20 06:06 Normal Saline IV 08/08/20 06:48 999 mls/hr ONETIME ONE Administration Discontinued Medications Generic Name Dose Route Start Last Admin Trade Name Freq PRN Reason Stop Dose Admin Hydromorphone HCl 1 mg 08/08/20 04:16 08/08/20 04:57 Hydromorphone 1 Mg/Ml Syringe IVPUSH 08/08/20 04:17 1 mg ONETIME ONE Administration Hydromorphone HCl 1 mg 08/08/20 05:48 08/08/20 06:06 Hydromorphone 1 Mg/Ml Syringe IVPUSH 08/08/20 05:49 1 mg ONETIME ONE Administration Sodium Chloride 1,000 mls @ 999 mls/hr 08/08/20 04:16 08/08/20 04:56 Normal Saline IV 08/08/20 05:16 999 mls/hr ONETIME ONE Administration Ondansetron HCl 4 mg 08/08/20 04:16 08/08/20 04:56 Ondansetron 4 Mg/2 Ml Sdv IVPUSH 08/08/20 04:17 4 mg ONETIME ONE Administration - Re-Assessments/Exams Free Text/Narrative Re-Assessment/Exam: 08/08/20 04:17 As above, the patient has stage IV colon cancer, with her most recent chemotherapy from Friday to last week, and a Neulasta injection on Friday, who then developed abdominal pain, low back pain, and generalized body pain on Friday, which has been coming and going, but worse last night. On examination, the patient has a soft abdomen with normal active bowel sounds, but it is protuberant with mass and quite tender to palpation. I have ordered a work-up that includes a few blood tests, just to look for severe anemia or significant fluid or electrolyte changes, and in the meantime, the patient will be given IV Dilaudid, IV Zofran, and IV fluid. 08/08/20 05:43 The patient's CBC is remarkable for a H/H depressed at 7.5/25.1, with thrombocytopenia of 135,000, and the remainder of her CBC being unremarkable. Her CMP is remarkable for slight hyperglycemia of 127, a TBil elevated at 1.5, and AST slightly elevated at 69 with an ALT normal at 58, and alkaline phosphatase significantly elevated at 812, with the remainder of her CMP being unremarkable. Her magnesium level is within normal limits at 1.9. 08/08/20 05:48 The patient states that she is feeling considerably better. She states that the Dilaudid took the edge off of her pain, although she is still having some pain. She is also requesting a second liter of IV fluid - her first liter has almost finished infusing. I have ordered a second liter of IV fluid, along with some additional Dilaudid. 08/08/20 06:48 The patient's second liter of IV fluid is expected to finish infusing in about 15 minutes. The patient feels much better, but requested an additional dose of Dilaudid before discharge. So ordered. Departure - Departure Time of Disposition: 07:10 Disposition: Home, Self-Care 01 Condition: Good Clinical Impression: Cancer-related breakthrough pain, Nausea - Discharge Information *PRESCRIPTION DRUG MONITORING PROGRAM REVIEWED*: Not Applicable *COPY OF PRESCRIPTION DRUG MONITORING REPORT IN PATIENT ERNIE: Not Applicable Referrals: Orlando Baker MD [Ordering Only Provider] - Forms: ED Department Discharge Additional Instructions: You were seen in the emergency room after developing abdominal pain, lower back pain, and generalized abdominal pain, along with nausea. Work-up in the ER included several blood tests. Your work-up found your hemoglobin/hematocrit to be depressed at 7.5/25.1, with your platelets mildly depressed at 135,000. You were treated with 2 L of IV fluid, along with IV Dilaudid and IV Zofran, with improvement of your symptoms. Continue to take your current medications, including OxyContin, as prescribed. Follow-up with your Oncologist, Dr. Orlando Baker, at the next available appointment. If any other problems, please do not hesitate to return to the ER. Sepsis Event Note (ED) - Evaluation Sepsis Screening Result: No Definite Risk - Focused Exam Vital Signs: Vital Signs Temp Pulse Resp BP Pulse Ox 08/08/20 04:04 36.3 C 75 18 126/84 97 - My Orders Last 24 Hours: My Active Orders 08/08/20 05:48 Sodium Chloride 0.9% [Normal Saline] 1,000 ml IV ONETIME 08/08/20 06:47 HYDROmorphone [Dilaudid] 1 mg IVPUSH ONETIME ONE - Assessment/Plan Last 24 Hours: My Active Orders 08/08/20 05:48 Sodium Chloride 0.9% [Normal Saline] 1,000 ml IV ONETIME 08/08/20 06:47 HYDROmorphone [Dilaudid] 1 mg IVPUSH ONETIME ONE
[2020-08-08 07:37] VITALS: BP 110/76
== END 2020-08-08 07:20 | disposition home or self-care (01) ==
LOC: JD.ED 03:49
DX: G89.3 Neoplasm related pain (acute) (chronic) (principal); C18.9 Malignant neoplasm of colon, unspecified; R10.84 Generalized abdominal pain; M54.5 Low back pain; R11.0 Nausea; Z90.49 Acquired absence of other specified parts of digestive tract; Z79.899 Other long term (current) drug therapy
CPT/HCPCS: 36415; 80053; 83735; 85007; 85027; 96374; 96375; 96376; 99284; J1170; J1642; J2405; J7030

== ENCOUNTER 2020-08-09 09:17 | Inpatient (IN) | payer BC ==
[2020-08-09] MEDS ORDERED: Sodium Chloride 0.9% 1,000 ML IV SCH (09:30)
[2020-08-09] MEDS ORDERED: HYDROmorphone 1 MG/ML Syringe IVPUSH ONE ×3 (09:30→11:52)
[2020-08-09] MEDS ORDERED: LORazepam 2 MG/ML SDV IVPUSH ONE (09:59)
[2020-08-09] MEDS: Sodium Chloride 0.9% 10 ML Syringe FLUSH PRN ×2 (09:59→10:51)
[2020-08-09] MEDS ORDERED: Sodium Chloride 0.9% 10 ML Syringe FLUSH ONE (10:41)
[2020-08-09] MEDS ORDERED: Iopamidol 612 MG/ML 100 ML Bottle IVPUSH ONE (10:41)
--- NOTE | 2020-08-09 11:23 | CT ---
CT abdomen and pelvis Technique: Multiple axial sections were obtained from above the dome of the diaphragm inferiorly through the pubic symphysis. Reconstructed coronal and sagittal images were obtained. Comparison: Prior MRI abdominal study is 07/23/[address] abdomen and pelvis exam dated 04/25/18. Findings: Liver shows multiple low density lesions. Multiple calcifications are also noted within the right and left lobes of the liver. The amount of lesions within the liver have significantly increased from prior exam. Areas of calcifications are felt to represent improvement within these areas of liver lesions. Gallbladder shows calcified gallstones. Fluid is seen around the gallbladder. Spleen is enlarged which is an interval change from prior exams. Left adrenal gland shows a nodule measuring 1.6 cm which is an interval change. Lymph nodes are noted within the upper retroperitoneum. Largest lymph node measures 2.8 cm. Pancreas shows no discrete abnormality. Kidneys show symmetric contrast enhancement without hydronephrosis or mass. Abdominal aorta shows no aneurysm with atherosclerotic change. No pelvic mass or adenopathy is seen. There are areas of bowel wall thickening being seen within the sigmoid colon and within portions of the transverse colon. Evidence of previous bowel surgery is noted. Appendix is not visualized. No discrete free fluid is seen. Bone window settings were reviewed which show no acute osteolytic or osteoblastic change. Impression: 1. Numerous calcifications within the liver compatible with treated metastatic disease. Number of lesions within the liver have increased from prior study compatible with worsening. 2. Spleen is enlarged which is an interval change. 3. Upper retroperitoneal adenopathy. Small nodule within the left adrenal gland. These findings are an interval change. 4. Gallstones within the gallbladder. Nonspecific fluid is seen around the gallbladder. Please rule out any signs of cholecystitis. 5. Mild areas of mucosal thickening within the sigmoid colon and right transverse colon. Difficult to exclude areas of colitis. Diagnostic code #9
--- NOTE | 2020-08-09 12:20 | EDM.PDOC ---
ED HPI GENERAL MEDICAL PROBLEM - General Chief Complaint: General Stated Complaint: [facility] Time Seen by Provider: 08/09/20 09:28 Source of Information: Reports: Patient, EMS History Limitations: Reports: No Limitations - History of Present Illness INITIAL COMMENTS - FREE TEXT/NARRATIVE: The patient presents by [facility] with Terrence intercept for severe abdominal, pack and generalized pain. This started on the . She was seen here yesterday and had labs and give dilaudid and felt better. She went home and this morning the pain was worse. She was given zofran 4mg IV and dilaudid in the ambulance. She still has severe pain when she arrived. She has stage IV colon cancer. This was first diagnosed on 03/27/18. She is currently seeing Dr Baekr and she is on chemotherapy. Her last chemotherapy was on 08/03/20. On 08/04/20 she had neulasta. She has some nausea but no vomiting. She has no fever, chills, cough, chest pain, shortness of breath or diarrhea. She says the pain is in her abdomen, back, arms and legs. Onset: Gradual Duration: Day(s): Location: Reports: Abdomen, Back, Generalized Quality: Reports: Sharp Severity: Severe Improves with: Reports: None Worsens with: Reports: None Associated Symptoms: Reports: Nausea/Vomiting. Denies: Chest Pain, Cough, Fever/Chills, Headaches, Shortness of Breath Lower Back Pain Score (Numeric/FACES): 10 - Related Data Allergies Allergy/AdvReac Type Severity Reaction Status Date / Time No Known Allergies Allergy Verified 08/09/20 10:22 Home Meds: Home Meds Docusate Sodium [Colace] 100 mg PO DAILY 11/06/18 [History] LORazepam [Ativan] 0.5 mg PO Q8HR PRN #20 tablet 11/07/18 [Rx] Pantoprazole [ProTONIX] 40 mg PO DAILY 11/14/18 [History] Potassium Chloride 10 meq PO DAILY 11/14/18 [History] Promethazine [Phenergan] 25 mg PO Q6H PRN #20 tab 04/02/20 [Rx] oxyCODONE 15 mg PO Q4H PRN 04/02/20 [History] oxyCODONE HCl [Oxycodone HCl ER] 80 mg PO BID 04/02/20 [History] Past Medical History HEENT History: Reports: Impaired Vision Cardiovascular History: Reports: None Respiratory History: Reports: None Gastrointestinal History: Reports: Hemorrhoids Other Gastrointestinal History: stage 4 colon cancer Genitourinary History: Reports: Other (See Below) 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 Immunologic History: Reports: Immunosuppression Oncologic (Cancer) History: Reports: Colon Other Oncologic History: Metastatic - stage 4 Dermatologic History: Reports: Eczema - Infectious Disease History Infectious Disease History: Reports: Herpes Other Infectious Disease History: HSV-1 - Past Surgical History Head Surgeries/Procedures: Reports: None HEENT Surgical History: Reports: Oral Surgery Other HEENT Surgeries/Procedures: Mcdonald teeth surgery x4 2013 Cardiovascular Surgical History: Reports: None Respiratory Surgical History: Reports: None GI Surgical History: Reports: Appendectomy, Colonoscopy, Other (See Below) Other GI Surgeries/Procedures: Liver biopsy Female Surgical History: Reports: None Endocrine Surgical History: Reports: None Neurological Surgical History: Reports: None Musculoskeletal Surgical History: Reports: ORIF Other Musculoskeletal Surgeries/Procedures:: Shoulder reduction Oncologic Surgical History: Reports: Other (See Below) Dermatological Surgical History: Reports: None Social & Family History - Family History Family Medical History: No Pertinent Family History Cardiac: Reports: High Cholesterol, Hypertension Other Cardiac Family History: Pt's father does have high cholesterol, and pt's mother MAY have HTN- pt not certain, otherwise, no one ill or with hx of illness pt is aware of in her or 's family. Dermatologic: Reports: Other (See Below) Other Dermatologic Family History: Father had a possible skin cancer of unknown type removed and biopsied recently Oncologic: Reports: Liver, Ovarian, Other (See Below) Other Oncologic Family History: testicular - Tobacco Use Tobacco Use Status *Q: Never Tobacco User Second Hand Smoke Exposure: No - Caffeine Use Caffeine Use: Reports: None - Recreational Drug Use Recreational Drug Use: No - Living Situation & Occupation Living situation: Reports: , with Spouse, with Family (4 kids) Occupation: Unemployed ED ROS GENERAL - Review of Systems Review Of Systems: See Below Constitutional: Reports: No Symptoms HEENT: Reports: No Symptoms Respiratory: Reports: No Symptoms Cardiovascular: Reports: No Symptoms Endocrine: Reports: No Symptoms GI/Abdominal: Reports: Abdominal Pain, Nausea. Denies: Diarrhea, Vomiting : Reports: No Symptoms Musculoskeletal: Reports: Back Pain, Muscle Pain ED EXAM, GENERAL - Physical Exam Exam: See Below Exam Limited By: No Limitations General Appearance: Alert, Moderate Distress Ears: Normal External Exam Nose: Normal Inspection Head: Atraumatic, Normocephalic Neck: Normal Inspection Respiratory/Chest: No Respiratory Distress, Lungs Clear, Normal Breath Sounds Cardiovascular: Regular Rate, Rhythm, No Edema, No Murmur GI/Abdominal: Soft, Distended (mild), Tender (Generalized tenderness) Back Exam: Normal Inspection Extremities: Normal Inspection Neurological: Alert, Oriented, No Motor/Sensory Deficits Course - Vital Signs Last Recorded V/S: Last Vital Signs Temp 98.5 F 08/09/20 09:29 Pulse 92 08/09/20 09:29 Resp 22 H 08/09/20 09:29 BP 135/90 08/09/20 09:29 Pulse Ox 100 08/09/20 09:29 - Orders/Labs/Meds Orders: Active Orders 24 hr Category Date Time Status Peripheral IV Care [RC] . DIRECTED Care 08/09/20 09:29 Active Abdomen Ltd [US] Stat Exams 08/09/20 12:13 Ordered CORONAVIRUS COVID-19 ALONDRA [MOLEC] Stat Lab 08/09/20 11:52 Ordered UA RFX GE AND CULT IF INDIC [URIN] Stat Lab 08/09/20 10:28 Ordered Sodium Chloride 0.9% [Normal Saline] 1,000 ml Med 08/09/20 09:30 Active IV ASDIRECTED Sodium Chloride 0.9% [Saline Flush] Med 08/09/20 09:28 Active 10 ml FLUSH ASDIRECTED PRN Peripheral IV Insertion Adult [OM.PC] Stat Oth 08/09/20 09:28 Ordered Medication Orders Sodium Chloride (Normal Saline) 1,000 mls @ 125 mls/hr IV ASDIRECTED MELLISSA Last Admin: 08/09/20 09:57 Dose: 125 mls/hr Documented by: HERMMIC Sodium Chloride (Sodium Chloride 0.9% 10 Ml Syringe) 10 ml FLUSH ASDIRECTED PRN PRN Reason: Keep Vein Open Last Admin: 08/09/20 10:51 Dose: 10 ml Documented by: Admin: 08/09/20 09:59 Dose: 10 ml Documented by: PAYAM Labs: Laboratory Tests 08/09/20 08/09/20 Range/Units 09:55 09:55 WBC 8.23 (3.98-10.04) K/mm3 RBC 3.17 L (3.98-5.22) M/mm3 Hgb 8.6 L (11.2-15.7) gm/dl Hct 29.4 L (34.1-44.9) % MCV 92.7 (79.4-94.8) fl MCH 27.1 (25.6-32.2) pg MCHC 29.3 L (32.2-35.5) g/dl RDW Std Deviation 76.9 H (36.4-46.3) fL Plt Count 144 L (182-369) K/mm3 MPV 11.6 (9.4-12.3) fl Neut % (Auto) 69.3 (34.0-71.1) % Lymph % (Auto) 14.0 L (19.3-51.7) % Warrick % (Auto) 14.5 H (4.7-12.5) % Eos % (Auto) 0.6 L (0.7-5.8) Baso % (Auto) 0.4 (0.1-1.2) % Neut # (Auto) 5.71 (1.56-6.13) K/mm3 Lymph # (Auto) 1.15 L (1.18-3.74) K/mm3 Warrick # (Auto) 1.19 H (0.24-0.36) K/mm3 Eos # (Auto) 0.05 (0.04-0.36) K/mm3 Baso # (Auto) 0.03 (0.01-0.08) K/mm3 Manual Slide Review Abnormal smear Sodium 140 (136-145) mEq/L Potassium 3.5 (3.5-5.1) mEq/L Chloride 100 (98-107) mEq/L Carbon Dioxide 28 (21-32) mEq/L Anion Gap 15.5 H (5-15) BUN 9 (7-18) mg/dL Creatinine 0.7 (0.55-1.02) mg/dL Est Cr Clr Drug Dosing 104.78 mL/min Estimated GFR (MDRD) > 60 (>60) mL/min BUN/Creatinine Ratio 12.9 L (14-18) Glucose 101 (74-106) mg/dL Calcium 9.2 (8.5-10.1) mg/dL Total Bilirubin 1.3 H (0.2-1.0) mg/dL AST 77 H (15-37) U/L ALT 58 (14-59) U/L Alkaline Phosphatase 891 H (46-116) U/L Total Protein 7.9 (6.4-8.2) g/dl Albumin 2.8 L (3.4-5.0) g/dl Globulin 5.1 gm/dL Albumin/Globulin Ratio 0.6 L (1-2) Lipase 57 L (73-393) U/L Meds: Medications Generic Name Dose Route Start Last Admin Trade Name Samuel PRN Reason Stop Dose Admin Sodium Chloride 1,000 mls @ 125 mls/hr 08/09/20 09:30 08/09/20 09:57 Normal Saline IV 125 mls/hr ASDIRECTED MELLISSA Administration Sodium Chloride 10 ml 08/09/20 09:28 08/09/20 10:51 Sodium Chloride 0.9% 10 Ml Syringe FLUSH 10 ml ASDIRECTED PRN Administration Keep Vein Open Discontinued Medications Generic Name Dose Route Start Last Admin Trade Name Samuel PRN Reason Stop Dose Admin Hydromorphone HCl 1 mg 08/09/20 09:30 08/09/20 09:56 Hydromorphone 1 Mg/Ml Syringe IVPUSH 08/09/20 09:31 1 mg ONETIME ONE Administration Hydromorphone HCl 1 mg 08/09/20 10:29 08/09/20 10:35 Hydromorphone 1 Mg/Ml Syringe IVPUSH 08/09/20 10:30 1 mg ONETIME ONE Administration Hydromorphone HCl 1 mg 08/09/20 11:52 08/09/20 12:06 Hydromorphone 1 Mg/Ml Syringe IVPUSH 08/09/20 11:53 1 mg ONETIME ONE Administration Iopamidol 100 ml 08/09/20 10:41 08/09/20 10:51 Iopamidol 612 Mg/Ml 100 Ml Bottle IVPUSH 08/09/20 10:42 100 ml ONETIME ONE Administration Lorazepam 1 mg 08/09/20 09:59 08/09/20 10:04 Lorazepam 2 Mg/Ml Sdv IVPUSH 08/09/20 10:00 1 mg ONETIME ONE Administration Sodium Chloride 10 ml 08/09/20 10:41 08/09/20 11:40 Sodium Chloride 0.9% 10 Ml Syringe FLUSH 08/09/20 10:42 10 ml ONETIME ONE Administration - Re-Assessments/Exams Free Text/Narrative Re-Assessment/Exam: 08/09/20 12:23 I ordered an IV NS at 125mL/hr, dilaudid 1mg IV, labs and a CT of her abdomen and pelvis. Her WBC was normal. Her Hgb is low at 8.6. Her platelets are low at 144. Her anion gap is elevated at 15.5. Her total bili is slightly elevated at 1.3. Her AST is elevated at 77. Her alk phos is elevated at 891. Her lipase is low. She had more pain so I ordered dilaudid 1mg IV. The CT shows numerous calcifications within the liver compatible with treated metastatic disease. Number of lesions within the liver have increased from prior study compatible with worsening. Spleen is enlarged which is an interval change. Upper retroperitoneal adenopathy. Small nodule within the left adrenal gland. These findings are an interval change. Gallstones within the gallbladder. Nonspecific fluid is seen around the gallbladder. Please rule out any signs of cholecystitis. Mild areas of mucosal thickening within the sigmoid colon and right transverse colon. Difficult to exclude areas of colitis. I called Dr Baker and he was okay with us admitting her here for pain control. He looked up her labs and they have not changed much from her last visit there. I called Dr Mistry and he agreed to the admission. I will add an US and a COVID 19 test. She had more pain so I ordered dilaudid 1mg IV. Departure - Departure Time of Disposition: 12:30 Disposition: Refer to Observation Clinical Impression: History of colon cancer, stage IV, Nausea Metastatic cancer Qualifiers: Area of secondary neoplastic involvement: unspecified site Qualified Code(s): C79.9 - Secondary malignant neoplasm of unspecified site Pain in the abdomen Qualifiers: Abdominal location: generalized Qualified Code(s): R10.84 - Generalized abdominal pain Anemia Qualifiers: Anemia type: other cause Other causes of anemia: other cause, not classified Qualified Code(s): D64.89 - Other specified anemias - Discharge Information Referrals: PCP,Not In Area [Primary Care Provider] - Sepsis Event Note (ED) - Evaluation Sepsis Screening Result: No Definite Risk - Focused Exam Vital Signs: Vital Signs Temp Pulse Resp BP Pulse Ox 08/09/20 09:29 98.5 F 92 22 H 135/90 100 - My Orders Last 24 Hours: My Active Orders 08/09/20 09:28 Sodium Chloride 0.9% [Saline Flush] 10 ml FLUSH ASDIRECTED PRN Peripheral IV Insertion Adult [OM.PC] Stat 08/09/20 09:29 Peripheral IV Care [RC] . DIRECTED 08/09/20 09:30 Sodium Chloride 0.9% [Normal Saline] 1,000 ml IV ASDIRECTED 08/09/20 10:28 UA RFX GE AND CULT IF INDIC [URIN] Stat 08/09/20 11:52 CORONAVIRUS COVID-19 ALONDRA [MOLEC] Stat 08/09/20 12:13 Abdomen Ltd [US] Stat - Assessment/Plan Last 24 Hours: My Active Orders 08/09/20 09:28 Sodium Chloride 0.9% [Saline Flush] 10 ml FLUSH ASDIRECTED PRN Peripheral IV Insertion Adult [OM.PC] Stat 08/09/20 09:29 Peripheral IV Care [RC] . DIRECTED 08/09/20 09:30 Sodium Chloride 0.9% [Normal Saline] 1,000 ml IV ASDIRECTED 08/09/20 10:28 UA RFX GE AND CULT IF INDIC [URIN] Stat 08/09/20 11:52 CORONAVIRUS COVID-19 ALONDRA [MOLEC] Stat 08/09/20 12:13 Abdomen Ltd [US] Stat
[2020-08-09] MEDS ORDERED: fentaNYL 100 MCG/2 ML SDV IVPUSH ONE (13:16)
--- NOTE | 2020-08-09 13:17 | US ---
Limited abdominal ultrasound: Multiple real-time images of the upper right abdomen were obtained. Comparison: Prior CT exam performed earlier on the same day (10:50 AM). Liver shows numerous abnormalities as seen on CT study compatible with numerous metastasis. Gallbladder shows evidence of gallstones. Gallbladder wall is thickened. Fluid is also seen around the gallbladder. Biliary ducts are not seen. Right kidney and other portions of the limited abdominal ultrasound are not well seen. Main portal vein shows hepatopedal flow. Impression: 1. Diffuse metastatic disease within the liver. 2. Gallstones with gallbladder wall thickening. Fluid is also seen within the upper right abdomen. 3. Nonvisualized biliary ducts. Diagnostic code #3
[2020-08-09] MEDS ORDERED: metroNIDAZOLE/Normal Saline 500 MG in Premix Bag 1 BAG IV ONE (13:30)
[2020-08-09] MEDS: Piperacillin/Tazobactam 4.5 GM in Sodium Chloride 0.9% 100 ML IV SCH ×2 (15:22→22:50)
--- NOTE | 2020-08-09 16:50 | PCM.HP.2 ---
H&P History of Present Illness - General Date of Service: 08/09/20 Admit Problem/Dx: Admission Diagnosis/Problem Admission Diagnosis/Problem Pain management Source of Information: Patient, Provider History Limitations: Reports: No Limitations - History of Present Illness Initial Comments - Free Text/Narative: 30 year old female with hx of advanced stage 4 colon cancer with mets to liver (and adrenal possible) who presents with 4 day hx of recurrent abd pain . epigastric sharp pain up to 8-10 despite her usual doses of hydrocodone and 3 days ago presented to e.r and did go home after dilaudid x 3 . hx of mild increased nausea but no vomiting and recently had neulasta 08/04 after chemo on 07/31. she has no fever or chills but increased pain not the usual pain she deals with form mets to liver/ sacrum that are about the same . mild worsening of p.p. nausea.she otehrwise feels well. no jaundice noted.,but she is having some trouble keeping up with fluids . no new meds ,no hx of cholestasis other than once before elavated t.b. caused cancellation of chemo. known elavated alk phos. which is unchanged per Dr Baker. no hx of pancreatitis. status of colon cancer is more lesions in liver on ct scan compared to 2 years ago and calcification of mult mets. seen on scan today. possible small abscess seen per radiology . question of cholecystis with thickening of g.b wall and fluid around gallbladder with ascites and possible abscess in rt lobe vs cystic mass. patient related good pain relief with dilaudid. appetite fair despite pain but increased nausea and diarrhea this am. p.e. pallorous chronically ill appearing female . vss as recorded. abd mild distenstion ,good b.s and tenderness to palp. ruq / liver enlarged spleen enlarged and non tender. ,mild epigastric pain as well. lab reviewed and cbc normal .lfts elavated but not changed from prev. per DR Baker. lfts elevated alk phos [address] ct scan report mult. new liver mets mixed with extensive old calcified mets, possible abscess rt lower lobe,massive spleenomegaly. gb wall thickening ,mild fluid around gb and paucity of bile ducts in liver u.s confirms the above. reviewed with Dr. Sarabia and [place].// patient seen by surgery who feels she is not surgical even if pain is from g.b .( drainage per cutaneous is still an option. assess: 1) suspect pain form cysts and or mets and will treat. conservatively with narcotics and i.v metronidazole and zosyn started,i .v support /pain control /// recheck liver labs in am . 2) possible cholecystitis/ hida scan if patient does not improve and has not declared herself clinically. surgery to follow as well . plan i.v antibiotics and i.v support and reassess pain and clinical picture in a.m. with hida scan /lab/exam. consider transfer to higher care if she worsens clinically and needs int. rad. plan discussed with patient and family and they are in agreement boh Onset of Symptoms: Reports: Gradual (3) Duration of Symptoms: Reports: Day(s): (3), Constant, Waxing/Waning Location: Reports: Abdomen, Back Quality: Reports: Sharp Improves with: Reports: Medication Worsens with: Reports: Eating Associated Symptoms: Reports: Nausea/Vomiting. Denies: Confusion, Chest Pain, Cough, Fever/Chills, Loss of Appetite, Malaise Lower Back Pain Score (Numeric/FACES): 10 - Related Data Allergies/Adverse Reactions: Allergies Allergy/AdvReac Type Severity Reaction Status Date / Time oxaliplatin Allergy Severe Anaphylactic Verified 08/09/20 14:36 Shock Home Medications: Home Meds Docusate Sodium [Colace] 100 mg PO DAILY 11/06/18 [History] LORazepam [Ativan] 0.5 mg PO Q8HR PRN #20 tablet 11/07/18 [Rx] oxyCODONE 15 mg PO Q4H PRN 04/02/20 [History] oxyCODONE HCl [Oxycodone HCl ER] 80 mg PO BID 04/02/20 [History] Past Medical History HEENT History: Reports: None, Impaired Vision Respiratory History: Reports: None Gastrointestinal History: Reports: Hemorrhoids Other Gastrointestinal History: stage 4 colon cancer Genitourinary History: Reports: None, Other (See Below) [employer] History: Reports: Other OB/BYN History: , hot flashes, Musculoskeletal History: Reports: Fracture Neurological History: Reports: None (rt eye dev. 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 Immunologic History: Reports: None, Immunosuppression Oncologic (Cancer) History: Reports: Colon Other Oncologic History: Metastatic - stage 4 Dermatologic History: Reports: Eczema - Infectious Disease History Infectious Disease History: Reports: Herpes Other Infectious Disease History: HSV-1 - Past Surgical History HEENT Surgical History: Reports: Oral Surgery Other HEENT Surgeries/Procedures: [place] teeth surgery x4 2013 Cardiovascular Surgical History: Reports: None Respiratory Surgical History: Reports: None GI Surgical History: Reports: Appendectomy, Colonoscopy, Other (See Below) Other GI Surgeries/Procedures: Liver biopsy Female Surgical History: Reports: None Endocrine Surgical History: Reports: None Neurological Surgical History: Reports: None Musculoskeletal Surgical History: Reports: ORIF Other Musculoskeletal Surgeries/Procedures:: Shoulder reduction Oncologic Surgical History: Reports: Other (See Below) Dermatological Surgical History: Reports: None Social & Family History - Family History Family Medical History: No Pertinent Family History Cardiac: Reports: High Cholesterol, Hypertension Other Cardiac Family History: Pt's father does have high cholesterol, and pt's mother MAY have HTN- pt not certain, otherwise, no one ill or with hx of illness pt is aware of in her or 's family. Dermatologic: Reports: Other (See Below) Other Dermatologic Family History: Father had a possible skin cancer of unknown type removed and biopsied recently Oncologic: Reports: Liver, Ovarian, Other (See Below) Other Oncologic Family History: testicular - Tobacco Use Tobacco Use Status *Q: Never Tobacco User Second Hand Smoke Exposure: No - Caffeine Use Caffeine Use: Reports: None - Recreational Drug Use Recreational Drug Use: No - Living Situation & Occupation Living situation: Reports: , with Spouse, with Family (4 kids) Occupation: Unemployed H&P Review of Systems - Review of Systems: Review Of Systems: See Below General: Reports: Malaise. Denies: Fever, Chills HEENT: Reports: No Symptoms Pulmonary: Reports: No Symptoms Cardiovascular: Reports: No Symptoms Gastrointestinal: Reports: Abdominal Pain, Diarrhea, Melena. Denies: Black Stool, Bloody Stool Genitourinary: Reports: No Symptoms Musculoskeletal: Reports: No Symptoms Skin: Reports: No Symptoms Psychiatric: Reports: No Symptoms Neurological: Reports: No Symptoms Hematologic/Lymphatic: Reports: Anemia Immunologic: Reports: No Symptoms Exam - Exam Exam: See Below - Vital Signs Vital Signs: Last Vital Signs Temp 36.9 C 08/09/20 09:29 Pulse 72 08/09/20 15:56 Resp 14 08/09/20 15:56 BP 120/86 08/09/20 15:56 Pulse Ox 100 08/09/20 15:56 Weight: 58.922 kg - Exam General: Alert, Oriented, 4 HEENT: PERRLA, Hearing Intact, Mucosa Moist & [place], Nares Patent, Normal Nasal Septum, Posterior Pharynx Clear, Conjunctiva Clear, EOMI, EACs Clear, TMs Clear Neck: Supple, Trachea Midline, 2 Lungs: Clear to Auscultation, Normal Respiratory Effort Cardiovascular: Regular Rate, Regular Rhythm GI/Abdominal Exam: Normal Bowel Sounds, Soft, No Organomegaly, No Distention, No Abnormal Bruit, No Mass, Pelvis Stable, Guarding, Rebound, Tender, Hepatomegaly, Splenomegaly. No: Non-Tender (Female) Exam: Normal External Exam, Normal Speculum Exam, Normal Bimanual Exam, Deferred Rectal (Female) Exam: Normal Exam, Normal Rectal Tone, Deferred Back Exam: Normal Inspection, Full Range of Motion, NT Extremities: Normal Inspection, Normal Range of Motion, Non-Tender, No Pedal Edema, Normal Capillary Refill Skin: Warm, Dry, Intact Neurological: Cranial Nerves Intact, Reflexes Equal Bilateral, Other (rt eye dev. upward otherwise perlaa) Neuro Extensive - Mental Status: Alert, Oriented x3, Normal Mood/Affect, Normal Cognition Neuro Extensive - Motor, Sensory, Reflexes: CN II-XII Intact, Normal Gait, Normal Reflexes Psychiatric: Alert, Normal Affect, Normal Mood Physical Exam Comments:: cachectic - Patient Data Lab Results Last 24 hrs: Laboratory Results - last 24 hr 08/09/20 08/09/20 08/09/20 Range/Units 09:45 09:55 09:55 WBC 8.23 (3.98-10.04) K/mm3 RBC 3.17 L (3.98-5.22) M/mm3 Hgb 8.6 L (11.2-15.7) gm/dl Hct 29.4 L (34.1-44.9) % MCV 92.7 (79.4-94.8) fl MCH 27.1 (25.6-32.2) pg MCHC 29.3 L (32.2-35.5) g/dl RDW Std Deviation 76.9 H (36.4-46.3) fL Plt Count 144 L (182-369) K/mm3 MPV 11.6 (9.4-12.3) fl Neut % (Auto) 69.3 (34.0-71.1) % Lymph % (Auto) 14.0 L (19.3-51.7) % Crisp % (Auto) 14.5 H (4.7-12.5) % Eos % (Auto) 0.6 L (0.7-5.8) Baso % (Auto) 0.4 (0.1-1.2) % Neut # (Auto) 5.71 (1.56-6.13) K/mm3 Lymph # (Auto) 1.15 L (1.18-3.74) K/mm3 Crisp # (Auto) 1.19 H (0.24-0.36) K/mm3 Eos # (Auto) 0.05 (0.04-0.36) K/mm3 Baso # (Auto) 0.03 (0.01-0.08) K/mm3 Manual Slide Review Abnormal smear Sodium 140 (136-145) mEq/L Potassium 3.5 (3.5-5.1) mEq/L Chloride 100 (98-107) mEq/L Carbon Dioxide 28 (21-32) mEq/L Anion Gap 15.5 H (5-15) BUN 9 (7-18) mg/dL Creatinine 0.7 (0.55-1.02) mg/dL Est Cr Clr Drug Dosing 104.78 mL/min Estimated GFR (MDRD) > 60 (>60) mL/min BUN/Creatinine Ratio 12.9 L (14-18) Glucose 101 (74-106) mg/dL Calcium 9.2 (8.5-10.1) mg/dL Total Bilirubin 1.3 H (0.2-1.0) mg/dL AST 77 H (15-37) U/L ALT 58 (14-59) U/L Alkaline Phosphatase 891 H (46-116) U/L Total Protein 7.9 (6.4-8.2) g/dl Albumin 2.8 L (3.4-5.0) g/dl Globulin 5.1 gm/dL Albumin/Globulin Ratio 0.6 L (1-2) Lipase 57 L (73-393) U/L Urine Color Yellow (Yellow) Urine Appearance Clear (Clear) Urine pH 6.0 (5.0-8.0) Ur Specific [place] 1.025 (1.005-1.030) Urine Protein Negative (Negative) Urine Glucose (UA) Negative (Negative) Urine Ketones Negative (Negative) Urine Occult Blood Negative (Negative) Urine Nitrite Negative (Negative) Urine Bilirubin Negative (Negative) Urine Urobilinogen 1.0 (0.2-1.0) Ur Leukocyte Esterase Negative (Negative) SARS-CoV-2 RNA (ALONDRA) (NEGATIVE) 08/09/20 Range/Units 12:08 WBC (3.98-10.04) K/mm3 RBC (3.98-5.22) M/mm3 Hgb (11.2-15.7) gm/dl Hct (34.1-44.9) % MCV (79.4-94.8) fl MCH (25.6-32.2) pg MCHC (32.2-35.5) g/dl RDW Std Deviation (36.4-46.3) fL Plt Count (182-369) K/mm3 MPV (9.4-12.3) fl Neut % (Auto) (34.0-71.1) % Lymph % (Auto) (19.3-51.7) % Crisp % (Auto) (4.7-12.5) % Eos % (Auto) (0.7-5.8) Baso % (Auto) (0.1-1.2) % Neut # (Auto) (1.56-6.13) K/mm3 Lymph # (Auto) (1.18-3.74) K/mm3 Crisp # (Auto) (0.24-0.36) K/mm3 Eos # (Auto) (0.04-0.36) K/mm3 Baso # (Auto) (0.01-0.08) K/mm3 Manual Slide Review Sodium (136-145) mEq/L Potassium (3.5-5.1) mEq/L Chloride (98-107) mEq/L Carbon Dioxide (21-32) mEq/L Anion Gap (5-15) BUN (7-18) mg/dL Creatinine (0.55-1.02) mg/dL Est Cr Clr Drug Dosing mL/min Estimated GFR (MDRD) (>60) mL/min BUN/Creatinine Ratio (14-18) Glucose (74-106) mg/dL Calcium (8.5-10.1) mg/dL Total Bilirubin (0.2-1.0) mg/dL AST (15-37) U/L ALT (14-59) U/L Alkaline Phosphatase (46-116) U/L Total Protein (6.4-8.2) g/dl Albumin (3.4-5.0) g/dl Globulin gm/dL Albumin/Globulin Ratio (1-2) Lipase (73-393) U/L Urine Color (Yellow) Urine Appearance (Clear) Urine pH (5.0-8.0) Ur Specific [place] (1.005-1.030) Urine Protein (Negative) Urine Glucose (UA) (Negative) Urine Ketones (Negative) Urine Occult Blood (Negative) Urine Nitrite (Negative) Urine Bilirubin (Negative) Urine Urobilinogen (0.2-1.0) Ur Leukocyte Esterase (Negative) SARS-CoV-2 RNA (ALONDRA) Negative (NEGATIVE) Result Diagrams: 08/09/20 09:55 08/09/20 09:55 Sepsis Event Note - Evaluation Sepsis Screening Result: No Definite Risk - Focused Exam Vital Signs: Vital Signs Temp Pulse Pulse Resp BP BP Pulse Ox 08/09/20 15:56 72 14 120/86 100 08/09/20 14:15 66 16 98/69 100 08/09/20 09:29 36.9 C 92 22 H 135/90 100 - Problem List (1) Anemia SNOMED Code(s): 116262466 ICD Code: D64.9 - ANEMIA, UNSPECIFIED Status: Acute Current Visit: Yes Qualifiers: Anemia type: other cause Other causes of anemia: other cause, not classified Qualified Code(s): D64.89 - Other specified anemias (2) History of colon cancer, stage IV SNOMED Code(s): 841213914, 320231947 ICD Code: Z85.038 - PERSONAL HISTORY OF MALIGNANT NEOPLASM OF LARGE INTESTINE Status: Acute Priority: High Current Visit: Yes Onset Date: ~08/09/20 (3) Pain in the abdomen SNOMED Code(s): 59270256 ICD Code: R10.9 - UNSPECIFIED ABDOMINAL PAIN Status: Acute Priority: High Current Visit: Yes Onset Date: ~08/06/20 Qualifiers: Abdominal location: generalized Qualified Code(s): R10.84 - Generalized abdominal pain (4) Cholecystitis SNOMED Code(s): 11126096 ICD Code: K81.9 - CHOLECYSTITIS, UNSPECIFIED Status: Acute Priority: Medium Current Visit: Yes Onset Date: ~08/09/20 Problem Details: possible cholcystitis (5) Colon cancer metastasized to multiple sites SNOMED Code(s): 348633295, 822171025 ICD Code: C18.9 - MALIGNANT NEOPLASM OF COLON, UNSPECIFIED Status: Acute Priority: High Current Visit: Yes Onset Date: ~08/09/20 Problem Details: follow up next week anticipated with Dr Baker. new mets known . Problem List Initiated/Reviewed/Updated: Yes Orders Last 24hrs: Active Orders 24 hr Category Date Time Status Patient Status [ADT] Routine ADT 08/09/20 13:31 Active Notify Provider Consults [RC] ASDIRECTED Care 08/09/20 13:36 Active Peripheral IV Care [RC] . DIRECTED Care 08/09/20 09:29 Active Consult to Physician [CONS] Stat Cons 08/09/20 13:35 Active Piperacillin/Tazobactam [Piperacil-Tazobact] 4.5 gm Med 08/09/20 13:30 Active Sodium Chloride 0.9% [Normal Saline] 100 ml IV Q8H Sodium Chloride 0.9% [Normal Saline] 1,000 ml Med 08/09/20 09:30 Active IV ASDIRECTED Sodium Chloride 0.9% [Saline Flush] Med 08/09/20 09:28 Active 10 ml FLUSH ASDIRECTED PRN Peripheral IV Insertion Adult [OM.PC] Stat Oth 08/09/20 09:28 Ordered Medication Orders Sodium Chloride (Normal Saline) 1,000 mls @ 125 mls/hr IV ASDIRECTED MELLISSA Last Admin: 08/09/20 09:57 Dose: 125 mls/hr Documented by: PAYAM Piperacillin Sod/Tazobactam (Sod 4.5 gm/ Sodium Chloride) 100 mls @ 25 mls/hr IV Q8H MELLISSA Last Admin: 08/09/20 15:22 Dose: 25 mls/hr Documented by: TYLER Sodium Chloride (Sodium Chloride 0.9% 10 Ml Syringe) 10 ml FLUSH ASDIRECTED PRN PRN Reason: Keep Vein Open Last Admin: 08/09/20 10:51 Dose: 10 ml Documented by: Admin: 08/09/20 09:59 Dose: 10 ml Documented by: HERMMIC Assessment/Plan Comment:: 30 year old female with hx of advanced stage 4 colon cancer with mets to liver (and adrenal possible) who presents with 4 day hx of recurrent abd pain . epigastric sharp pain up to 8-10 despite her usual doses of hydrocodone and 3 days ago presented to e.r and did go home after dilaudid x 3 . hx of mild increased nausea but no vomiting and recently had neulasta 08/04 after chemo on 07/31. she has no fever or chills but increased pain not the usual pain she deals with form mets to liver/ sacrum that are about the same . mild worsening of p.p. nausea.she otehrwise feels well. no jaundice noted.,but she is having some trouble keeping up with fluids . no new meds ,no hx of cholestasis other than once before elavated t.b. caused cancellation of chemo. known elavated alk phos. which is unchanged per Dr Baker. no hx of pancreatitis. status of colon cancer is more lesions in liver on ct scan compared to 2 years ago and calcification of mult mets. seen on scan today. possible small abscess seen per radiology . question of cholecystis with thickening of g.b wall and fluid around gallbladder with ascites and possible abscess in rt lobe vs cystic mass. patient related good pain relief with dilaudid. appetite fair despite pain but increased nausea and diarrhea this am. p.e. pallorous chronically ill appearing female . vss as recorded. abd mild distenstion ,good b.s and tenderness to palp. ruq / liver enlarged spleen enlarged and non tender. ,mild epigastric pain as well. lab reviewed and cbc normal .lfts elavated but not changed from prev. per DR Baker. lfts elevated alk phos [address] ct scan report mult. new liver mets mixed with extensive old calcified mets, possible abscess rt lower lobe,massive spleenomegaly. gb wall thickening ,mild fluid around gb and paucity of bile ducts in liver u.s confirms the above. reviewed with Dr. Sarabia and interventional rad. trini.// patient seen by surgery who feels she is not surgical even if pain is from g.b .( drainage per cutaneous is still an option. assess: 1) suspect pain form cysts and or mets and will treat. conservatively with narcotics and i.v metronidazole and zosyn started,i .v support /pain control /// recheck liver labs in am . 2) possible cholecystitis/ hida scan if patient does not improve and has not declared herself clinically. surgery to follow as well . plan i.v antibiotics and i.v support and reassess pain and clinical picture in a.m. with hida scan /lab/exam. consider transfer to higher care if she worsens clinically and needs int. rad. plan discussed with patient and family and they are in agreement b - Mortality Measure Prognosis:: Poor
[2020-08-09] MEDS ORDERED: Ondansetron 4 MG Tab.DIS PO PRN (17:17)
[2020-08-09] MEDS ORDERED: Pantoprazole 40 MG Vial ONE (17:17)
[2020-08-09] MEDS ORDERED: Lactated Ringers 1,000 ML IV SCH (17:30)
[2020-08-09] MEDS ORDERED: Piperacillin/Tazobactam 4.5 GM in Sodium Chloride 0.9% 100 ML IV SCH (17:30)
[2020-08-09] MEDS: oxyCODONE ER 20 MG TAB.ER PO SCH (17:53)
[2020-08-09] MEDS: HYDROmorphone 0.5 MG/0.5 ML Syringe IVPUSH PRN ×2 (17:55→20:05)
[2020-08-09] MEDS ORDERED: Pantoprazole 40 MG Vial IVPUSH ONE (18:15)
[2020-08-09] MEDS: Sodium Chloride 0.9% 1,000 ML IV SCH (19:03)
[2020-08-09] MEDS: LORazepam 0.5 MG Tab PO PRN (19:11)
[2020-08-09] MEDS: Acetaminophen/oxyCODONE 325-5 MG Tab PO PRN (19:11)
[2020-08-09] MEDS ORDERED: HYDROmorphone 1 MG/ML Syringe IVPUSH PRN (20:21)
[2020-08-09] MEDS: Sucralfate Suspension 1 GM/10 ML Cup PO SCH (20:33)
[2020-08-09] MEDS: Temazepam 15 MG Cap PO PRN (20:33)
[2020-08-09] MEDS: metroNIDAZOLE/Normal Saline 500 MG in Premix Bag 1 BAG IV SCH (21:54)
[2020-08-10] MEDS: Sucralfate Suspension 1 GM/10 ML Cup PO SCH ×4 (03:07→21:15)
[2020-08-10] MEDS: LORazepam 0.5 MG Tab PO PRN ×2 (03:08→19:15)
[2020-08-10] MEDS: Acetaminophen/oxyCODONE 325-5 MG Tab PO PRN (03:43)
[2020-08-10] MEDS: Sodium Chloride 0.9% 1,000 ML IV SCH ×3 (03:44→21:16)
[2020-08-10] MEDS: metroNIDAZOLE/Normal Saline 500 MG in Premix Bag 1 BAG IV SCH ×3 (05:05→21:28)
[2020-08-10] MEDS: Piperacillin/Tazobactam 4.5 GM in Sodium Chloride 0.9% 100 ML IV SCH ×3 (06:12→23:02)
[2020-08-10] MEDS ORDERED: Acetaminophen 325 MG Tab PO PRN (08:30)
[2020-08-10] MEDS ORDERED: Ibuprofen 800 MG Tab PO PRN (08:30)
[2020-08-10] MEDS ORDERED: LORazepam 2 MG/ML SDV IVPUSH ONE (08:31)
[2020-08-10] MEDS: oxyCODONE ER 20 MG TAB.ER PO SCH ×2 (08:35→17:09)
[2020-08-10] MEDS ORDERED: Docusate Sodium 100 MG Cap PO SCH (09:00)
[2020-08-10] MEDS: Pantoprazole 40 MG Vial IVPUSH SCH (09:25)
[2020-08-10] MEDS: Enoxaparin 40 MG/0.4 ML Syringe SUBCUT SCH (09:33)
[2020-08-10] MEDS ORDERED: fentaNYL 100 MCG/2 ML SDV IVPUSH SCH (11:30)
[2020-08-10] MEDS ORDERED: Ondansetron 4 MG/2 ML SDV IVPUSH PRN (13:00)
[2020-08-10] MEDS ORDERED: Naloxone 0.4 MG/ML SDV IVPUSH PRN (13:00)
[2020-08-10] MEDS ORDERED: diphenhydrAMINE 25 MG Cap PO PRN (13:00)
[2020-08-10] MEDS ORDERED: diphenhydrAMINE 50 MG/ML SDV IVPUSH PRN (13:00)
[2020-08-10] MEDS: fentaNYL 100 MCG/2 ML SDV IVPUSH PRN ×2 (13:31→13:58)
--- NOTE | 2020-08-10 13:58 | NM ---
Biliary HIDA scan with ejection fraction Technique: 4.8 mCi of technetium 99m mebrofenin was given intravenously. Scintigraphic imaging was then obtained over the upper abdomen. During the study, 3 ounces of cream and 1 teaspoon of sugar was given. Continued scintigraphic imaging was performed. Comparison: Prior right upper quadrant abdominal ultrasound of 08/09/20. Findings: Normal activity is seen within gallbladder and small bowel. Gallbladder ejection fraction is low at 32 percent. Impression: 1. Normal biliary HIDA scan. 2. Low gallbladder ejection fraction. Diagnostic code #3
[2020-08-10] MEDS ORDERED: fentaNYL 100 MCG/2 ML SDV IVPUSH PRN (14:27)
--- NOTE | 2020-08-10 14:38 | PCM.PN ---
- General Info Date of Service: 08/10/20 Admission Dx/Problem (Free Text): Admission Diagnosis/Problem Admission Diagnosis/Problem Pain management 08/09/2020: The patient presents by [facility] with [facility] intercept for severe abdominal, pack and generalized pain. This started on the . She was seen here yesterday and had labs and give dilaudid and felt better. She went home and this morning the pain was worse. She was given zofran 4mg IV and dilaudid in the ambulance. She still has severe pain when she arrived. She has stage IV colon cancer. This was first diagnosed on 03/27/18. She is currently seeing Dr. Baker and she is on chemotherapy. Her last chemotherapy was on 08/03/20. On 08/04/20 she had neulasta. She has some nausea but no vomiting. She has no fever, chills, cough, chest pain, shortness of breath or diarrhea. She says the pain is in her abdomen, back, arms and legs. Her US shows diffuse metastatic disease within the liver. Gallstones with gallbladder wall thickening. Fluid is also seen within the upper right abdomen. Nonvisualized biliary ducts. This is highly suspicious for cholecystitis. I called Dr Mistry and he wanted me to give her zosyn and flagyl. I have a call out to Dr Guadarrama. She was in surgery and she will call me back. She was transferred from the ED and admitted to the floor. Admit to Floor: 30 year old female with history of advanced stage 4 colon cancer with mets to liver (and adrenal possible) who presents with 4 day history of recurrent abdominal pain, sharp epigastric pain up to 8-10 on the pain scale despite her usual doses of hydrocodone. She reportedly was in the ED on 08/08/2020 and had labs and was given Dilaudid and felt better but this morning her pain was worse. She was given Zofran 4mg IV and Dilaudid in the ambulance. She has a history of mild increased nausea but no vomiting and recently had Neulasta on 08/04/2020 after her last chemotherapy on 08/03/2020. She denies any fever or chills, but her increased pain is not the usual pain she deals with. Mild worsening of p.p. nausea, but she otherwise feels well and has no jaundice noted but she is having some trouble keeping up with fluids. She has no new medications, no history of pancreatitis, no history of cholestasis other than once before elevated t.b. caused cancellation of chemotherapy, but does have a known elevated alkaline phosphatase which is unchanged per Dr. Baker. Her status of colon cancer has more lesions in liver on the CT scan compared to 2 years ago and calcification of multiple mets that are seen on the scan today. She has a possible small abscess seen per radiology and questioning of cholecystis with thickening of gallbladder wall and fluid around gallbladder with ascites and possible abscess in right lobe verses a cystic mass. Patient related the she had good pain relief with Dilaudid and that her appetite is fair despite pain, but she has had increased nausea and diarrhea this am. P.E. Pallor and chronically ill appearing female Vital signs stable as recorded Mild abdominal distension with good blow sounds and palpitation tenderness to RUQ enlarged liver and spleen and non tender mild epigastric pain as well Lab reviewed and CBC normal, LFTs elevated, Alkaline phosphatase 891, but not changed from previous per Dr. Baker CT Scan report showed multiple new liver metastases mixed with extensive old calcified metastases and possible abscess to right lower lobe and massive splenomegaly with gallbladder wall thickening and mild fluid around the gallbladder and paucity of bile ducts in the liver. Reviewed with Dr. Sarabia and interventional radiology at [facility] and patient was seen by surgery who feels like she is not a surgical candidate even if her pain is from gallbladder drainage per cutaneous is still an option. Assess: 1) Suspect her pain is form cysts and/or mets and will treat conservatively with narcotics and IV metronidazole and Zosyn started 2) IV support and pain control 3) Will recheck liver labs in the AM 4) Possible cholecystitis and discussed getting a HIDA scan if patient does not improve and has not declared herself clinically. Surgery to follow as well Plan: IV antibiotics and IV support and reassess pain and clinical picture in the AM with HIDA scan, lab, and exam Consider transferring to a higher care facility if she worsens clinically and needs interventional radiology Discussed the plan with patient and her family and they are in agreement [facility] 08/10/2020: RUQ, spleen, and epigastric pain She has abdominal distention and nausea, but no vomiting She is having a lot of pain which is worse since she has not had her pain medication since 3 in the morning due to having a HIDA scan this morning S3/S4 and enlarged liver and spleen on examination She denies any chest pain, SOB, headache, fever, or chills Bloor pressures this morning were 118/83 and 118/84 Pulse rate this morning running 72-85 Labs from 08/10/2020: Alkaline phosphatase 749, Hemoglobin 8.5, Platelet count 142, Total Bilirubin 1.2, CRP 9.4 HIDA Scan results showed normal biliary and low gallbladder ejection fraction at 32 percent Discussed trying to get pain under control and either increasing morphine or converting her morphine to fentanyl Discussed her current status and options with Dr. Guadarrama Discussed the possibility of transferring to a higher care facility if she worsens clinically and needs interventional radiology Subjective Update: 08/10/2020: RUQ, spleen, and epigastric pain She has abdominal distention and nausea, but no vomiting She is having a lot of pain which is worse since she has not had her pain medication since 3 in the morning due to having a HIDA scan this morning S3/S4 and enlarged liver and spleen on examination She denies any chest pain, SOB, headache, fever, or chills Bloor pressures this morning were 118/83 and 118/84 Pulse rate this morning running 72-85 Labs from 08/10/2020: Alkaline phosphatase 749, Hemoglobin 8.5, Platelet count 142, Total Bilirubin 1.2, CRP 9.4 HIDA Scan results showed normal biliary and low gallbladder ejection fraction at 32 percent Discussed trying to get pain under control and either increasing morphine or converting her morphine to fentanyl Discussed her current status and options with Dr. Guadarrama Discussed the possibility of transferring to a higher care facility if she worsens clinically and needs interventional radiology - Review of Systems General: Reports: No Symptoms HEENT: Reports: No Symptoms Pulmonary: Reports: No Symptoms Cardiovascular: Reports: No Symptoms Gastrointestinal: Reports: Abdominal Pain, Nausea Genitourinary: Reports: No Symptoms Musculoskeletal: Reports: No Symptoms Skin: Reports: No Symptoms Neurological: Reports: No Symptoms Psychiatric: Reports: No Symptoms - Patient Data Vitals - Most Recent: Last Vital Signs Temp 97.9 F 08/10/20 09:45 Pulse 85 08/10/20 09:45 Resp 18 08/10/20 09:45 BP 118/84 08/10/20 09:45 Pulse Ox 100 08/10/20 09:45 Weight - Most Recent: 59.33 kg I&O - Last 24 Hours: Intake & Output 08/09/20 08/10/20 08/10/20 22:59 06:59 14:59 Intake Total 1428 1445 Output Total 0 Balance 1428 1445 Lab Results Last 24 Hours: Laboratory Results - last 24 hr 08/09/20 08/10/20 08/10/20 Range/Units 12:08 03:55 03:55 WBC 4.83 (3.98-10.04) K/mm3 RBC 3.14 L (3.98-5.22) M/mm3 Hgb 8.5 L (11.2-15.7) gm/dl Hct 29.5 L (34.1-44.9) % MCV 93.9 (79.4-94.8) fl MCH 27.1 (25.6-32.2) pg MCHC 28.8 L (32.2-35.5) g/dl RDW Std Deviation 78.9 H (36.4-46.3) fL Plt Count 142 L (182-369) K/mm3 MPV 11.3 (9.4-12.3) fl Neut % (Auto) 62.5 (34.0-71.1) % Lymph % (Auto) 23.0 (19.3-51.7) % [place] % (Auto) 13.3 H (4.7-12.5) % Eos % (Auto) 0.6 L (0.7-5.8) Baso % (Auto) 0.2 (0.1-1.2) % Neut # (Auto) 3.02 (1.56-6.13) K/mm3 Lymph # (Auto) 1.11 L (1.18-3.74) K/mm3 [place] # (Auto) 0.64 H (0.24-0.36) K/mm3 Eos # (Auto) 0.03 L (0.04-0.36) K/mm3 Baso # (Auto) 0.01 (0.01-0.08) K/mm3 Manual Slide Review Abnormal smear Sodium 142 (136-145) mEq/L Potassium 3.8 (3.5-5.1) mEq/L Chloride 104 (98-107) mEq/L Carbon Dioxide 28 (21-32) mEq/L Anion Gap 13.8 (5-15) BUN 9 (7-18) mg/dL Creatinine 0.8 (0.55-1.02) mg/dL Est Cr Clr Drug Dosing 91.68 mL/min Estimated GFR (MDRD) > 60 (>60) mL/min BUN/Creatinine Ratio 11.3 L (14-18) Glucose 90 (74-106) mg/dL Calcium 8.9 (8.5-10.1) mg/dL Total Bilirubin 1.2 H (0.2-1.0) mg/dL AST 59 H (15-37) U/L ALT 49 (14-59) U/L Alkaline Phosphatase 749 H (46-116) U/L C-Reactive Protein 9.4 H* (<1.0) mg/dL Total Protein 7.1 (6.4-8.2) g/dl Albumin 2.5 L (3.4-5.0) g/dl Globulin 4.6 gm/dL Albumin/Globulin Ratio 0.5 L (1-2) Amylase (25-115) U/L Lipase (73-393) U/L SARS-CoV-2 RNA (ALONDRA) Negative (NEGATIVE) 08/10/20 08/10/20 Range/Units 03:55 03:55 WBC (3.98-10.04) K/mm3 RBC (3.98-5.22) M/mm3 Hgb (11.2-15.7) gm/dl Hct (34.1-44.9) % MCV (79.4-94.8) fl MCH (25.6-32.2) pg MCHC (32.2-35.5) g/dl RDW Std Deviation (36.4-46.3) fL Plt Count (182-369) K/mm3 MPV (9.4-12.3) fl Neut % (Auto) (34.0-71.1) % Lymph % (Auto) (19.3-51.7) % [place] % (Auto) (4.7-12.5) % Eos % (Auto) (0.7-5.8) Baso % (Auto) (0.1-1.2) % Neut # (Auto) (1.56-6.13) K/mm3 Lymph # (Auto) (1.18-3.74) K/mm3 [place] # (Auto) (0.24-0.36) K/mm3 Eos # (Auto) (0.04-0.36) K/mm3 Baso # (Auto) (0.01-0.08) K/mm3 Manual Slide Review Sodium (136-145) mEq/L Potassium (3.5-5.1) mEq/L Chloride (98-107) mEq/L Carbon Dioxide (21-32) mEq/L Anion Gap (5-15) BUN (7-18) mg/dL Creatinine (0.55-1.02) mg/dL Est Cr Clr Drug Dosing mL/min Estimated GFR (MDRD) (>60) mL/min BUN/Creatinine Ratio (14-18) Glucose (74-106) mg/dL Calcium (8.5-10.1) mg/dL Total Bilirubin (0.2-1.0) mg/dL AST (15-37) U/L ALT (14-59) U/L Alkaline Phosphatase (46-116) U/L C-Reactive Protein (<1.0) mg/dL Total Protein (6.4-8.2) g/dl Albumin (3.4-5.0) g/dl Globulin gm/dL Albumin/Globulin Ratio (1-2) Amylase 20 L (25-115) U/L Lipase 53 L (73-393) U/L SARS-CoV-2 RNA (ALONDRA) (NEGATIVE) Med Orders - Current: Current Medications Acetaminophen (Acetaminophen 325 Mg Tab) 1,000 mg PO Q6H PRN PRN Reason: Pain Docusate Sodium (Docusate Sodium 100 Mg Cap) 100 mg PO DAILY [facility] Enoxaparin Sodium (Enoxaparin 40 Mg/0.4 Ml Syringe) 40 mg SUBCUT DAILY [facility] Last Admin: 08/10/20 09:33 Dose: 40 mg Documented by: Fentanyl (Fentanyl 100 Mcg/2 Ml Sdv) 100 mcg IVPUSH ONETIME [facility] Stop: 08/10/20 12:30 Hydromorphone HCl (Hydromorphone 1 Mg/Ml Syringe) 1 mg IVPUSH Q2H PRN PRN Reason: Pain (severe 7-10) Last Admin: 08/10/20 03:07 Dose: 1 mg Documented by: Piperacillin Sod/Tazobactam (Sod 4.5 gm/ Sodium Chloride) 100 mls @ 25 mls/hr IV Q8H [facility] Last Admin: 08/10/20 06:12 Dose: 25 mls/hr Documented by: Metronidazole 500 mg/ Premix 100 mls @ 100 mls/hr IV Q8H [facility] Last Admin: 08/10/20 05:05 Dose: 100 mls/hr Documented by: Sodium Chloride (Normal Saline) 1,000 mls @ 125 mls/hr IV ASDIRECTED [facility] Last Admin: 08/10/20 03:44 Dose: 125 mls/hr Documented by: Ibuprofen (Ibuprofen 800 Mg Tab) 800 mg PO Q8H PRN PRN Reason: Pain Lorazepam (Lorazepam 0.5 Mg Tab) 0.5 mg PO Q8HR PRN PRN Reason: Anxiety Last Admin: 08/10/20 03:08 Dose: 0.5 mg Documented by: Ondansetron HCl (Ondansetron 4 Mg Tab.Dis) 8 mg PO Q6H PRN PRN Reason: Nausea/Vomiting Oxycodone HCl (Oxycodone 15 Mg Tab) 15 mg PO Q4H PRN PRN Reason: Pain (severe 7-10) Oxycodone HCl (Oxycodone Er 20 Mg Tab.Er) 80 mg PO BID@0600,1800 [facility] Last Admin: 08/10/20 08:35 Dose: Not Given Documented by: Oxycodone/Acetaminophen (Acetaminophen/Oxycodone 325-5 Mg Tab) 2 tab PO Q4H PRN PRN Reason: Pain (moderate 4-6) Last Admin: 08/10/20 03:43 Dose: 2 tab Documented by: Pantoprazole Sodium (Pantoprazole 40 Mg Vial) 40 mg IVPUSH DAILY [facility] Last Admin: 08/10/20 09:25 Dose: 40 mg Documented by: Sodium Chloride (Sodium Chloride 0.9% 10 Ml Syringe) 10 ml FLUSH ASDIRECTED PRN PRN Reason: Keep Vein Open Last Admin: 08/09/20 10:51 Dose: 10 ml Documented by: Sucralfate (Sucralfate Suspension 1 Gm/10 Ml Cup) 1 gm PO Q6H [facility] Last Admin: 08/10/20 03:07 Dose: 1 gm Documented by: Temazepam (Temazepam 15 Mg Cap) 15 mg PO BEDTIME PRN PRN Reason: Sleep Last Admin: 08/09/20 20:33 Dose: 15 mg Documented by: Discontinued Medications Fentanyl (Fentanyl 100 Mcg/2 Ml Sdv) 100 mcg IVPUSH ONETIME ONE Stop: 08/09/20 13:17 Last Admin: 08/09/20 13:23 Dose: 100 mcg Documented by: Hydromorphone HCl (Hydromorphone 1 Mg/Ml Syringe) 1 mg IVPUSH ONETIME ONE Stop: 08/09/20 09:31 Last Admin: 08/09/20 09:56 Dose: 1 mg Documented by: Hydromorphone HCl (Hydromorphone 1 Mg/Ml Syringe) 1 mg IVPUSH ONETIME ONE Stop: 08/09/20 10:30 Last Admin: 08/09/20 10:35 Dose: 1 mg Documented by: Hydromorphone HCl (Hydromorphone 1 Mg/Ml Syringe) 1 mg IVPUSH ONETIME ONE Stop: 08/09/20 11:53 Last Admin: 08/09/20 12:06 Dose: 1 mg Documented by: Hydromorphone HCl (Hydromorphone 0.5 Mg/0.5 Ml Syringe) 0.5 mg IVPUSH Q2H PRN PRN Reason: Pain (severe 7-10) Last Admin: 08/09/20 20:05 Dose: 0.5 mg Documented by: Sodium Chloride (Normal Saline) 1,000 mls @ 125 mls/hr IV ASDIRECTED [facility] Last Admin: 08/09/20 09:57 Dose: 125 mls/hr Documented by: Metronidazole 500 mg/ Premix 100 mls @ 100 mls/hr IV ONETIME ONE Stop: 08/09/20 14:29 Last Admin: 08/09/20 14:13 Dose: 100 mls/hr Documented by: Lactated Ringer's (Ringers, Lactated) 1,000 mls @ 125 mls/hr IV ASDIRECTED [facility] Piperacillin Sod/Tazobactam (Sod 4.5 gm/ Sodium Chloride) 100 mls @ 25 mls/hr IV Q8H [facility] Last Admin: 08/09/20 18:16 Dose: Not Given Documented by: Iopamidol (Iopamidol 612 Mg/Ml 100 Ml Bottle) 100 ml IVPUSH ONETIME ONE Stop: 08/09/20 10:42 Last Admin: 08/09/20 10:51 Dose: 100 ml Documented by: Lorazepam (Lorazepam 2 Mg/Ml Sdv) 1 mg IVPUSH ONETIME ONE Stop: 08/09/20 10:00 Last Admin: 08/09/20 10:04 Dose: 1 mg Documented by: Lorazepam (Lorazepam 2 Mg/Ml Sdv) 1 mg IVPUSH ONETIME ONE Stop: 08/10/20 08:32 Last Admin: 08/10/20 09:31 Dose: 1 mg Documented by: Pantoprazole Sodium (Pantoprazole 40 Mg Vial) 40 mg .XX ONETIME ONE Stop: 08/09/20 17:18 Last Admin: 08/09/20 18:16 Dose: Not Given Documented by: Pantoprazole Sodium (Pantoprazole 40 Mg Vial) 40 mg IVPUSH ONETIME ONE Stop: 08/09/20 18:16 Last Admin: 08/09/20 18:30 Dose: 40 mg Documented by: Sodium Chloride (Sodium Chloride 0.9% 10 Ml Syringe) 10 ml FLUSH ONETIME ONE Stop: 08/09/20 10:42 Last Admin: 08/09/20 11:40 Dose: 10 ml Documented by: - Exam General: Alert, Oriented HEENT: Pupils Equal, Pupils Reactive, EOMI, Mucous Membr. Moist/[place] Neck: Supple Lungs: Clear to Auscultation, Normal Respiratory Effort Cardiovascular: Regular Rate, Regular Rhythm GI/Abdominal Exam: Normal Bowel Sounds, Distended, Rebound, Tender (RUQ, spleen, and epigastric), Other (enlarged spleen and liver) (Female) Exam: Deferred Back Exam: Normal Inspection, Full Range of Motion Extremities: Normal Inspection, Normal Range of Motion, Non-Tender, No Pedal Edema, Normal Capillary Refill Skin: Warm, Dry, Intact Neurological: No New Focal Deficit Psy/Mental Status: Alert, Normal Affect, Normal Mood - Patient Data Lab Results Last 24 hrs: Laboratory Results - last 24 hr 08/09/20 08/10/20 08/10/20 Range/Units 12:08 03:55 03:55 WBC 4.83 (3.98-10.04) K/mm3 RBC 3.14 L (3.98-5.22) M/mm3 Hgb 8.5 L (11.2-15.7) gm/dl Hct 29.5 L (34.1-44.9) % MCV 93.9 (79.4-94.8) fl MCH 27.1 (25.6-32.2) pg MCHC 28.8 L (32.2-35.5) g/dl RDW Std Deviation 78.9 H (36.4-46.3) fL Plt Count 142 L (182-369) K/mm3 MPV 11.3 (9.4-12.3) fl Neut % (Auto) 62.5 (34.0-71.1) % Lymph % (Auto) 23.0 (19.3-51.7) % [place] % (Auto) 13.3 H (4.7-12.5) % Eos % (Auto) 0.6 L (0.7-5.8) Baso % (Auto) 0.2 (0.1-1.2) % Neut # (Auto) 3.02 (1.56-6.13) K/mm3 Lymph # (Auto) 1.11 L (1.18-3.74) K/mm3 [place] # (Auto) 0.64 H (0.24-0.36) K/mm3 Eos # (Auto) 0.03 L (0.04-0.36) K/mm3 Baso # (Auto) 0.01 (0.01-0.08) K/mm3 Manual Slide Review Abnormal smear Sodium 142 (136-145) mEq/L Potassium 3.8 (3.5-5.1) mEq/L Chloride 104 (98-107) mEq/L Carbon Dioxide 28 (21-32) mEq/L Anion Gap 13.8 (5-15) BUN 9 (7-18) mg/dL Creatinine 0.8 (0.55-1.02) mg/dL Est Cr Clr Drug Dosing 91.68 mL/min Estimated GFR (MDRD) > 60 (>60) mL/min BUN/Creatinine Ratio 11.3 L (14-18) Glucose 90 (74-106) mg/dL Calcium 8.9 (8.5-10.1) mg/dL Total Bilirubin 1.2 H (0.2-1.0) mg/dL AST 59 H (15-37) U/L ALT 49 (14-59) U/L Alkaline Phosphatase 749 H (46-116) U/L C-Reactive Protein 9.4 H* (<1.0) mg/dL Total Protein 7.1 (6.4-8.2) g/dl Albumin 2.5 L (3.4-5.0) g/dl Globulin 4.6 gm/dL Albumin/Globulin Ratio 0.5 L (1-2) Amylase (25-115) U/L Lipase (73-393) U/L SARS-CoV-2 RNA (ALONDRA) Negative (NEGATIVE) 08/10/20 08/10/20 Range/Units 03:55 03:55 WBC (3.98-10.04) K/mm3 RBC (3.98-5.22) M/mm3 Hgb (11.2-15.7) gm/dl Hct (34.1-44.9) % MCV (79.4-94.8) fl MCH (25.6-32.2) pg MCHC (32.2-35.5) g/dl RDW Std Deviation (36.4-46.3) fL Plt Count (182-369) K/mm3 MPV (9.4-12.3) fl Neut % (Auto) (34.0-71.1) % Lymph % (Auto) (19.3-51.7) % [place] % (Auto) (4.7-12.5) % Eos % (Auto) (0.7-5.8) Baso % (Auto) (0.1-1.2) % Neut # (Auto) (1.56-6.13) K/mm3 Lymph # (Auto) (1.18-3.74) K/mm3 [place] # (Auto) (0.24-0.36) K/mm3 Eos # (Auto) (0.04-0.36) K/mm3 Baso # (Auto) (0.01-0.08) K/mm3 Manual Slide Review Sodium (136-145) mEq/L Potassium (3.5-5.1) mEq/L Chloride (98-107) mEq/L Carbon Dioxide (21-32) mEq/L Anion Gap (5-15) BUN (7-18) mg/dL Creatinine (0.55-1.02) mg/dL Est Cr Clr Drug Dosing mL/min Estimated GFR (MDRD) (>60) mL/min BUN/Creatinine Ratio (14-18) Glucose (74-106) mg/dL Calcium (8.5-10.1) mg/dL Total Bilirubin (0.2-1.0) mg/dL AST (15-37) U/L ALT (14-59) U/L Alkaline Phosphatase (46-116) U/L C-Reactive Protein (<1.0) mg/dL Total Protein (6.4-8.2) g/dl Albumin (3.4-5.0) g/dl Globulin gm/dL Albumin/Globulin Ratio (1-2) Amylase 20 L (25-115) U/L Lipase 53 L (73-393) U/L SARS-CoV-2 RNA (ALONDRA) (NEGATIVE) Result Diagrams: 08/10/20 03:55 08/10/20 03:55 Sepsis Event Note - Evaluation Sepsis Screening Result: No Definite Risk - Focused Exam Vital Signs: Vital Signs Temp Pulse Resp BP Pulse Ox 08/10/20 09:45 97.9 F 85 18 118/84 100 08/10/20 03:37 72 18 118/83 100 - Problem List & Annotations (1) Anemia SNOMED Code(s): 693594004 Code(s): D64.9 - ANEMIA, UNSPECIFIED Status: Acute Priority: Medium Current Visit: Yes Onset Date: ~08/09/20 Qualifiers: Anemia type: other cause Other causes of anemia: other cause, not classified Qualified Code(s): D64.89 - Other specified anemias (2) Cholecystitis SNOMED Code(s): 69069782 Code(s): K81.9 - CHOLECYSTITIS, UNSPECIFIED Status: Acute Priority: M edium Current Visit: Yes Onset Date: ~08/09/20 Annotation/Comment:: possible cholcystitis 08/10/20 gb low ejecton fraction at 32 % and normal uptake . discussed with patient and famly and will restart pain meds and treat abd pain sec. to met livr and lymph nodes . follow up over next 24 hours. allow to eat and discuss with Dr Baker. no fever but on ant zosyn ad metronidizole. lfts same cholystisis (3) Colon cancer metastasized to multiple sites SNOMED Code(s): 773334526, 988745431 Code(s): C18.9 - MALIGNANT NEOPLASM OF COLON, UNSPECIFIED Status: Acute Priority: High Current Visit: Yes Onset Date: ~08/09/20 Annotation/Comment:: follow up next week anticipated with Dr Baker. new mets known . (4) History of colon cancer, stage IV SNOMED Code(s): 540125738, 419835838 Code(s): Z85.038 - PERSONAL HISTORY OF MALIGNANT NEOPLASM OF LARGE INTESTINE Status: Acute Priority: High Current Visit: Yes Onset Date: ~08/09/20 (5) Nausea SNOMED Code(s): 603168002 Code(s): R11.0 - NAUSEA Status: Acute Priority: Medium Current Visit: Yes Onset Date: ~08/09/20 (6) Pain in the abdomen SNOMED Code(s): 55738925 Code(s): R10.9 - UNSPECIFIED ABDOMINAL PAIN Status: Acute Priority: High Current Visit: Yes Onset Date: ~08/06/20 Qualifiers: Abdominal location: generalized Qualified Code(s): R10.84 - Generalized abdominal pain - Problem List Review Problem List Initiated/Reviewed/Updated: Yes - Assessment Assessment:: 08/10/2020: RUQ, spleen, and epigastric pain She has abdominal distention and nausea, but no vomiting She is having a lot of pain which is worse since she has not had her pain medication since 3 in the morning due to having a HIDA scan this morning S3/S4 and enlarged liver and spleen on examination She denies any chest pain, SOB, headache, fever, or chills Bloor pressures this morning were 118/83 and 118/84 Pulse rate this morning running 72-85 Labs from 08/10/2020: Alkaline phosphatase 749, Hemoglobin 8.5, Platelet count 142, Total Bilirubin 1.2, CRP 9.4 HIDA Scan results showed normal biliary and low gallbladder ejection fraction at 32 percent Discussed trying to get pain under control and either increasing morphine or converting her morphine to fentanyl Discussed her current status and options with Dr. Guadarrama Discussed the possibility of transferring to a higher care facility if she worsens clinically and needs interventional radiology - Plan Plan:: 08/09/2020: The patient presents by [facility] with [facility] intercept for severe abdominal, pack and generalized pain. This started on the . She was seen here yesterday and had labs and give dilaudid and felt better. She went home and this morning the pain was worse. She was given zofran 4mg IV and dilaudid in the ambulance. She still has severe pain when she arrived. She has stage IV colon cancer. This was first diagnosed on 03/27/18. She is currently seeing Dr. Baker and she is on chemotherapy. Her last chemotherapy was on 08/03/20. On 08/04/20 she had neulasta. She has some nausea but no vomiting. She has no fever, chills, cough, chest pain, shortness of breath or diarrhea. She says the pain is in her abdomen, back, arms and legs. Her US shows diffuse metastatic disease within the liver. Gallstones with gallbladder wall thickening. Fluid is also seen within the upper right abdomen. Nonvisualized biliary ducts. This is highly suspicious for cholecystitis. I called Dr Mistry and he wanted me to give her zosyn and flagyl. I have a call out to Dr Guadarrama. She was in surgery and she will call me back. She was transferred from the ED and admitted to the floor. Admit to Floor: 30 year old female with history of advanced stage 4 colon cancer with mets to liver (and adrenal possible) who presents with 4 day history of recurrent abdominal pain, sharp epigastric pain up to 8-10 on the pain scale despite her usual doses of hydrocodone. She reportedly was in the ED on 08/08/2020 and had labs and was given Dilaudid and felt better but this morning her pain was worse. She was given Zofran 4mg IV and Dilaudid in the ambulance. She has a history of mild increased nausea but no vomiting and recently had Neulasta on 08/04/2020 after her last chemotherapy on 08/03/2020. She denies any fever or chills, but her increased pain is not the usual pain she deals with. Mild worsening of p.p. nausea, but she otherwise feels well and has no jaundice noted but she is having some trouble keeping up with fluids. She has no new medications, no history of pancreatitis, no history of cholestasis other than once before elevated t.b. caused cancellation of chemotherapy, but does have a known elevated alkaline p hosphatase which is unchanged per Dr. Baker. Her status of colon cancer has more lesions in liver on the CT scan compared to 2 years ago and calcification of multiple mets that are seen on the scan today. She has a possible small abscess seen per radiology and questioning of cholecystis with thickening of gallbladder wall and fluid around gallbladder with ascites and possible abscess in right lobe verses a cystic mass. Patient related the she had good pain relief with Dilaudid and that her appetite is fair despite pain, but she has had increased nausea and diarrhea this am. P.E. Pallor and chronically ill appearing female Vital signs stable as recorded Mild abdominal distension with good blow sounds and palpitation tenderness to RUQ enlarged liver and spleen and non tender mild epigastric pain as well Lab reviewed and CBC normal, LFTs elevated, Alkaline phosphatase 891, but not changed from previous per Dr. Baker CT Scan report showed multiple new liver metastases mixed with extensive old calcified metastases and possible abscess to right lower lobe and massive splenomegaly with gallbladder wall thickening and mild fluid around the gallbladder and paucity of bile ducts in the liver. Reviewed with Dr. Sarabia and interventional radiology at [facility] and patient was seen by surgery who feels like she is not a surgical candidate even if her pain is from gallbladder drainage per cutaneous is still an option. Assess: 1) Suspect her pain is form cysts and/or mets and will treat conservatively with narcotics and IV metronidazole and Zosyn started 2) IV support and pain control 3) Will recheck liver labs in the AM 4) Possible cholecystitis and discussed getting a HIDA scan if patient does not improve and has not declared herself clinically. Surgery to follow as well Plan: IV antibiotics and IV support and reassess pain and clinical picture in the AM with HIDA scan, lab, and exam Consider transferring to a higher care facility if she worsens clinically and needs interventional radiology Discussed the plan with patient and her family and they are in agreement boh 08/10/2020: RUQ, spleen, and epigastric pain She has abdominal distention and nausea, but no vomiting She is having a lot of pain which is worse since she has not had her pain medication since 3 in the morning due to having a HIDA scan this morning S3/S4 and enlarged liver and spleen on examination She denies any chest pain, SOB, headache, fever, or chills Bloor pressures this morning were 118/83 and 118/84 Pulse rate this morning running 72-85 Labs from 08/10/2020: Alkaline phosphatase 749, Hemoglobin 8.5, Platelet count 142, Total Bilirubin 1.2, CRP 9.4 HIDA Scan results showed normal biliary and low gallbladder ejection fraction at 32 percent Discussed trying to get pain under control and either increasing morphine or converting her morphine to fentanyl Discussed her current status and options with Dr. Guadarrama Discussed the possibility of transferring to a higher care facility if she worsens clinically and needs interventional radiology
[2020-08-10] MEDS: fentaNYL/Normal Saline 300 MCG/30 ML PCA Vial IV PRN ×2 (15:09→21:17)
[2020-08-10] MEDS ORDERED: Zolpidem 10 MG Tab PO PRN (22:54)
[2020-08-10] MEDS: Docusate Sodium 100 MG Cap PO PRN (23:03)
[2020-08-11] MEDS: Sucralfate Suspension 1 GM/10 ML Cup PO SCH ×4 (03:11→20:40)
[2020-08-11] MEDS: metroNIDAZOLE/Normal Saline 500 MG in Premix Bag 1 BAG IV SCH (05:06)
[2020-08-11] MEDS: Sodium Chloride 0.9% 1,000 ML IV SCH ×3 (05:16→23:16)
[2020-08-11] MEDS: Piperacillin/Tazobactam 4.5 GM in Sodium Chloride 0.9% 100 ML IV SCH (06:07)
[2020-08-11] MEDS: oxyCODONE ER 20 MG TAB.ER PO SCH ×2 (06:08→18:32)
[2020-08-11] MEDS: Pantoprazole 40 MG Vial IVPUSH SCH (09:17)
[2020-08-11] MEDS: Enoxaparin 40 MG/0.4 ML Syringe SUBCUT SCH (09:17)
[2020-08-11] MEDS: fentaNYL/Normal Saline 300 MCG/30 ML PCA Vial IV PRN ×2 (10:08→19:36)
[2020-08-11] MEDS ORDERED: oxyCODONE ER 10 MG TAB.ER PO ONE (11:30)
--- NOTE | 2020-08-11 15:39 | PCM.PN ---
- General Info Date of Service: 08/11/20 Admission Dx/Problem (Free Text): Admission Diagnosis/Problem Admission Diagnosis/Problem Pain management 08/09/2020: The patient presents by [facility] with [place] [facility] for severe abdominal, pack and generalized pain. This started on the . She was seen here yesterday and had labs and give dilaudid and felt better. She went home and this morning the pain was worse. She was given zofran 4mg IV and dilaudid in the ambulance. She still has severe pain when she arrived. She has stage IV colon cancer. This was first diagnosed on 03/27/18. She is currently seeing Dr. Baker and she is on chemotherapy. Her last chemotherapy was on 08/03/20. On 08/04/20 she had neulasta. She has some nausea but no vomiting. She has no fever, chills, cough, chest pain, shortness of breath or diarrhea. She says the pain is in her abdomen, back, arms and legs. Her US shows diffuse metastatic disease within the liver. Gallstones with gallbladder wall thickening. Fluid is also seen within the upper right abdomen. Nonvisualized biliary ducts. This is highly suspicious for cholecystitis. I called Dr Mistry and he wanted me to give her zosyn and flagyl. I have a call out to Dr Guadarrama. She was in surgery and she will call me back. She was transferred from the ED and admitted to the floor. Admit to Floor: 30 year old female with history of advanced stage 4 colon cancer with mets to liver (and adrenal possible) who presents with 4 day history of recurrent abdominal pain, sharp epigastric pain up to 8-10 on the pain scale despite her usual doses of hydrocodone. She reportedly was in the ED on 08/08/2020 and had labs and was given Dilaudid and felt better but this morning her pain was worse. She was given Zofran 4mg IV and Dilaudid in the ambulance. She has a history of mild increased nausea but no vomiting and recently had Neulasta on 08/04/2020 after her last chemotherapy on 08/03/2020. She denies any fever or chills, but her increased pain is not the usual pain she deals with. Mild worsening of p.p. nausea, but she otherwise feels well and has no jaundice noted but she is having some trouble keeping up with fluids. She has no new medications, no history of pancreatitis, no history of cholestasis other than once before elevated t.b. caused cancellation of chemotherapy, but does have a known elevated alkaline phosphatase which is unchanged per Dr. Baker. Her status of colon cancer has more lesions in liver on the CT scan compared to 2 years ago and calcification of multiple mets that are seen on the scan today. She has a possible small abscess seen per radiology and questioning of cholecystis with thickening of gallbladder wall and fluid around gallbladder with ascites and possible abscess in right lobe verses a cystic mass. Patient related the she had good pain relief with Dilaudid and that her appetite is fair despite pain, but she has had increased nausea and diarrhea this am. P.E. Pallor and chronically ill appearing female Vital signs stable as recorded Mild abdominal distension with good blow sounds and palpitation tenderness to RUQ enlarged liver and spleen and non tender mild epigastric pain as well Lab reviewed and CBC normal, LFTs elevated, Alkaline phosphatase 891, but not changed from previous per Dr. Baker CT Scan report showed multiple new liver metastases mixed with extensive old calcified metastases and possible abscess to right lower lobe and massive splenomegaly with gallbladder wall thickening and mild fluid around the gallbladder and paucity of bile ducts in the liver. Reviewed with Dr. Sarabia and interventional radiology at [facility] and patient was seen by surgery who feels like she is not a surgical candidate even if her pain is from gallbladder drainage per cutaneous is still an option. Assess: 1) Suspect her pain is form cysts and/or mets and will treat conservatively with narcotics and IV metronidazole and Zosyn started 2) IV support and pain control 3) Will recheck liver labs in the AM 4) Possible cholecystitis and discussed getting a HIDA scan if patient does not improve and has not declared herself clinically. Surgery to follow as well Plan: IV antibiotics and IV support and reassess pain and clinical picture in the AM with HIDA scan, lab, and exam Consider transferring to a higher care facility if she worsens clinically and needs interventional radiology Discussed the plan with patient and her family and they are in agreement doctors hospital 08/10/2020: RUQ, spleen, and epigastric pain She has abdominal distention and nausea, but no vomiting She is having a lot of pain which is worse since she has not had her pain medication since 3 in the morning due to having a HIDA scan this morning S3/S4 and enlarged liver and spleen on examination She denies any chest pain, SOB, headache, fever, or chills Bloor pressures this morning were 118/83 and 118/84 Pulse rate this morning running 72-85 Labs from 08/10/2020: Alkaline phosphatase 749, Hemoglobin 8.5, Platelet count 142, Total Bilirubin 1.2, CRP 9.4 HIDA Scan results showed normal biliary and low gallbladder ejection fraction at 32 percent Discussed trying to get pain under control and either increasing morphine or converting her morphine to fentanyl Discussed her current status and options with Dr. Guadarrama Discussed the possibility of transferring to a higher care facility if she worsens clinically and needs interventional radiology 08/11/2020: Afebrile She is a awake and orientated Patient states that she is feeling better this morning Patient states that the pressure she feels in her back is starting to be minimal Patient states that with her pain getting more controlled that she has been able to sleep a bit She is wearing her glasses She is on a regular diet and patient reports that she had a fairly decent appetite this morning and that yesterday her appetite was not great She still has abdominal distension Patient reports that she is having some constipation and feel like she has to have a BM but has been able to go Patient reports that she takes stool softeners at home and that it helps with her constipation Blood pressures this mornin/63 and 99/74 Pulse rate this morning running 55-57 Patient is wondering if she is able to get IV medications through her port since her arm is starting to bother her and it is itching, she would also like o be able to shower Patient is wondering about pain pumps and if she would be a good candidate for one, if her pain would be better managed with one, or if she should continue taking oral pain medications Discussed trying to talk with Dr. Baker and Edwardo Whitman [employer] SCI[employer] TEACHER on if they believe a pain pump would be a good option for her Discussed stopping IV antibiotics after today Discussed rechecking labs of a CBC, CRP, Sed Rate, and blood culture tomorrow Discussed possible discharging tomorrow or Friday with Patient and Subjective Update: 08/11/2020: Afebrile She is a awake and orientated Patient states that she is feeling better this morning Patient states that the pressure she feels in her back is starting to be minimal Patient states that with her pain getting more controlled that she has been able to sleep a bit She is wearing her glasses She is on a regular diet and patient reports that she had a fairly decent appetite this morning and that yesterday her appetite was not great She still has abdominal distension Patient reports that she is having some constipation and feel like she has to have a BM but has been able to go Patient reports that she takes stool softeners at home and that it helps with her constipation Blood pressures this mornin/63 and 99/74 Pulse rate this morning running 55-57 Patient is wondering if she is able to get IV medications through her port since her arm is starting to bother her and it is itching, she would also like o be able to shower Patient is wondering about pain pumps and if she would be a good candidate for one, if her pain would be better managed with one, or if she should continue taking oral pain medications Discussed trying to talk with Dr. Baker and Edwardo Whitman [employer] SCI[employer] TE[employer] on if they believe a pain pump would be a good option for her Discussed stopping IV antibiotics after today Discussed rechecking labs of a CBC, CRP, Sed Rate, and blood culture tomorrow Discussed possible discharging tomorrow or Friday with Patient and . add. called pain clinic in [place]. edwardo Diaz m.d with [facility] and lakshmi return call / left message to discuss pain control pump options per patient request. p.m. 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 video producer use. increased dose of long acting oxicontin to 120 mg bid rescue pain med increased to oxycontin 30 mg and will start tonight. plan to decrease pain pump use in anticipation of d/c if stable fri or friday . boh - Review of Systems General: Reports: No Symptoms HEENT: Reports: No Symptoms, Glasses Pulmonary: Reports: No Symptoms Cardiovascular: Reports: No Symptoms Gastrointestinal: Reports: Abdominal Pain, Constipation Genitourinary: Reports: No Symptoms Musculoskeletal: Reports: No Symptoms Skin: Reports: No Symptoms Neurological: Reports: No Symptoms Psychiatric: Reports: No Symptoms - Patient Data Vitals - Most Recent: Last Vital Signs Temp 97.7 F 08/11/20 07:58 Pulse 57 L 08/11/20 07:58 Resp 16 08/11/20 07:58 BP 99/74 08/11/20 07:58 Pulse Ox 100 08/11/20 07:58 Weight - Most Recent: 60.691 kg I&O - Last 24 Hours: Intake & Output 08/10/20 08/11/20 08/11/20 22:59 06:59 14:59 Intake Total 1900 950 360 Output Total 100 Balance 1800 950 360 Lab Results Last 24 Hours: Laboratory Results - last 24 hr 08/10/20 Range/Units 15:35 Urine Color Yellow (Yellow) Urine Appearance Clear (Clear) Urine pH 6.0 (5.0-8.0) Ur Specific Baker 1.025 (1.005-1.030) Urine Protein Negative (Negative) Urine Glucose (UA) Negative (Negative) Urine Ketones Negative (Negative) Urine Occult Blood Negative (Negative) Urine Nitrite Negative (Negative) Urine Bilirubin Negative (Negative) Urine Urobilinogen 1.0 (0.2-1.0) Ur Leukocyte Esterase Negative (Negative) Urine RBC 0-5 (0-5) /hpf Urine WBC 0-5 (0-5) /hpf Ur Squamous Epith Cells 0-5 (0-5) /hpf Urine Bacteria Few (FEW) /hpf Urine Mucus Few (FEW) /hpf Med Orders - Current: Current Medications Acetaminophen (Acetaminophen 325 Mg Tab) 1,000 mg PO Q6H PRN PRN Reason: Pain Last Admin: 08/10/20 18:20 Dose: 1,000 mg Documented by: Diphenhydramine HCl (Diphenhydramine 50 Mg/Ml Sdv) 25 mg IVPUSH Q6H PRN PRN Reason: Itching Diphenhydramine HCl (Diphenhydramine 25 Mg Cap) 25 mg PO Q6H PRN PRN Reason: Itching Docusate Sodium (Docusate Sodium 100 Mg Cap) 100 mg PO BID PRN PRN Reason: Constipation Last Admin: 08/10/20 23:03 Dose: 100 mg Documented by: Enoxaparin Sodium (Enoxaparin 40 Mg/0.4 Ml Syringe) 40 mg SUBCUT DAILY MELLISSA Last Admin: 08/11/20 09:17 Dose: 40 mg Documented by: Fentanyl Citrate (Fentanyl/Normal Saline 300 Mcg/30 Ml Technology Assistant Vial) 0 mcg IV ASDIRECTED PRN; Protocol PRN Reason: Pain Last Admin: 08/11/20 10:08 Dose: 300 mcg Documented by: Piperacillin Sod/Tazobactam (Sod 4.5 gm/ Sodium Chloride) 100 mls @ 25 mls/hr IV Q8H [facility] Last Admin: 08/11/20 06:07 Dose: 25 mls/hr Documented by: Metronidazole 500 mg/ Premix 100 mls @ 100 mls/hr IV Q8H [facility] Last Admin: 08/11/20 05:06 Dose: 100 mls/hr Documented by: Sodium Chloride (Normal Saline) 1,000 mls @ 125 mls/hr IV ASDIRECTED [facility] Last Admin: 08/11/20 05:16 Dose: 125 mls/hr Documented by: Ibuprofen (Ibuprofen 800 Mg Tab) 800 mg PO Q8H PRN PRN Reason: Pain Last Admin: 08/10/20 18:19 Dose: 800 mg Documented by: Lorazepam (Lorazepam 0.5 Mg Tab) 0.5 mg PO Q8HR PRN PRN Reason: Anxiety Last Admin: 08/10/20 19:15 Dose: 0.5 mg Documented by: Naloxone HCl (Naloxone 0.4 Mg/Ml Sdv) 0.4 mg IVPUSH Q3M PRN PRN Reason: Respiratory Depression Ondansetron HCl (Ondansetron 4 Mg Tab.Dis) 8 mg PO Q6H PRN PRN Reason: Nausea/Vomiting Ondansetron HCl (Ondansetron 4 Mg/2 Ml Sdv) 4 mg IVPUSH Q6H PRN PRN Reason: Nausea/Vomiting Oxycodone HCl (Oxycodone 15 Mg Tab) 15 mg PO Q4H PRN PRN Reason: Pain (severe 7-10) Last Admin: 08/10/20 21:14 Dose: 15 mg Documented by: Oxycodone HCl (Oxycodone Er 20 Mg Tab.Er) 80 mg PO BID@0600,1800 [facility] Last Admin: 08/11/20 06:08 Dose: 80 mg Documented by: Oxycodone/Acetaminophen (Acetaminophen/Oxycodone 325-5 Mg Tab) 2 tab PO Q4H PRN PRN Reason: Pain (moderate 4-6) Last Admin: 08/10/20 03:43 Dose: 2 tab Documented by: Pantoprazole Sodium (Pantoprazole 40 Mg Vial) 40 mg IVPUSH DAILY [facility] Last Admin: 08/11/20 09:17 Dose: 40 mg Documented by: Senna/Docusate Sodium (Docusate Sodium/Sennosides 50-8.6 Mg Tab) 1 tab PO DAILY PRN PRN Reason: Constipation Last Admin: 08/10/20 18:09 Dose: 1 tab Documented by: Sodium Chloride (Sodium Chloride 0.9% 10 Ml Syringe) 10 ml FLUSH ASDIRECTED PRN PRN Reason: Keep Vein Open Last Admin: 08/09/20 10:51 Dose: 10 ml Documented by: Sucralfate (Sucralfate Suspension 1 Gm/10 Ml Cup) 1 gm PO Q6H MELLISSA Last Admin: 08/11/20 09:17 Dose: 1 gm Documented by: Temazepam (Temazepam 15 Mg Cap) 15 mg PO BEDTIME PRN PRN Reason: Sleep Last Admin: 08/09/20 20:33 Dose: 15 mg Documented by: Discontinued Medications Docusate Sodium (Docusate Sodium 100 Mg Cap) 100 mg PO DAILY [facility] Last Admin: 08/10/20 14:20 Dose: 100 mg Documented by: Fentanyl (Fentanyl 100 Mcg/2 Ml Sdv) 100 mcg IVPUSH ONETIME ONE Stop: 08/09/20 13:17 Last Admin: 08/09/20 13:23 Dose: 100 mcg Documented by: Fentanyl (Fentanyl 100 Mcg/2 Ml Sdv) 100 mcg IVPUSH ONETIME MELLISSA Stop: 08/10/20 12:30 Fentanyl (Fentanyl 100 Mcg/2 Ml Sdv) 50 mcg IVPUSH Q5M PRN PRN Reason: Abdominal Pain Last Admin: 08/10/20 13:58 Dose: 50 mcg Documented by: Fentanyl (Fentanyl 100 Mcg/2 Ml Sdv) 100 mcg IVPUSH Q5M PRN PRN Reason: Abdominal Pain Last Admin: 08/10/20 15:05 Dose: 50 mcg Documented by: Hydromorphone HCl (Hydromorphone 1 Mg/Ml Syringe) 1 mg IVPUSH ONETIME ONE Stop: 08/09/20 09:31 Last Admin: 08/09/20 09:56 Dose: 1 mg Documented by: Hydromorphone HCl (Hydromorphone 1 Mg/Ml Syringe) 1 mg IVPUSH ONETIME ONE Stop: 08/09/20 10:30 Last Admin: 08/09/20 10:35 Dose: 1 mg Documented by: Hydromorphone HCl (Hydromorphone 1 Mg/Ml Syringe) 1 mg IVPUSH ONETIME ONE Stop: 08/09/20 11:53 Last Admin: 08/09/20 12:06 Dose: 1 mg Documented by: Hydromorphone HCl (Hydromorphone 0.5 Mg/0.5 Ml Syringe) 0.5 mg IVPUSH Q2H PRN PRN Reason: Pain (severe 7-10) Last Admin: 08/09/20 20:05 Dose: 0.5 mg Documented by: Hydromorphone HCl (Hydromorphone 1 Mg/Ml Syringe) 1 mg IVPUSH Q2H PRN PRN Reason: Pain (severe 7-10) Last Admin: 08/10/20 03:07 Dose: 1 mg Documented by: Sodium Chloride (Normal Saline) 1,000 mls @ 125 mls/hr IV ASDIRECTED [facility] Last Admin: 08/09/20 09:57 Dose: 125 mls/hr Documented by: Metronidazole 500 mg/ Premix 100 mls @ 100 mls/hr IV ONETIME ONE Stop: 08/09/20 14:29 Last Admin: 08/09/20 14:13 Dose: 100 mls/hr Documented by: Lactated Ringer's (Ringers, Lactated) 1,000 mls @ 125 mls/hr IV ASDIRECTED [facility] Piperacillin Sod/Tazobactam (Sod 4.5 gm/ Sodium Chloride) 100 mls @ 25 mls/hr IV Q8H [facility] Last Admin: 08/09/20 18:16 Dose: Not Given Documented by: Iopamidol (Iopamidol 612 Mg/Ml 100 Ml Bottle) 100 ml IVPUSH ONETIME ONE Stop: 08/09/20 10:42 Last Admin: 08/09/20 10:51 Dose: 100 ml Documented by: Lorazepam (Lorazepam 2 Mg/Ml Sdv) 1 mg IVPUSH ONETIME ONE Stop: 08/09/20 10:00 Last Admin: 08/09/20 10:04 Dose: 1 mg Documented by: Lorazepam (Lorazepam 2 Mg/Ml Sdv) 1 mg IVPUSH ONETIME ONE Stop: 08/10/20 08:32 Last Admin: 08/10/20 09:31 Dose: 1 mg Documented by: Pantoprazole Sodium (Pantoprazole 40 Mg Vial) 40 mg .XX ONETIME ONE Stop: 08/09/20 17:18 Last Admin: 08/09/20 18:16 Dose: Not Given Documented by: Pantoprazole Sodium (Pantoprazole 40 Mg Vial) 40 mg IVPUSH ONETIME ONE Stop: 08/09/20 18:16 Last Admin: 08/09/20 18:30 Dose: 40 mg Documented by: Sodium Chloride (Sodium Chloride 0.9% 10 Ml Syringe) 10 ml FLUSH ONETIME ONE Stop: 08/09/20 10:42 Last Admin: 08/09/20 11:40 Dose: 10 ml Documented by: Zolpidem Tartrate (Zolpidem 10 Mg Tab) 10 mg PO ONETIME PRN PRN Reason: Insomnia Last Admin: 08/10/20 23:07 Dose: 10 mg Documented by: - Exam General: Alert, Oriented HEENT: Pupils Equal, Pupils Reactive, EOMI, Mucous Membr. Moist/[place]ou[place] Neck: Supple Lungs: Clear to Auscultation, Normal Respiratory Effort Cardiovascular: Regular Rate, Regular Rhythm GI/Abdominal Exam: Normal Bowel Sounds, Soft, No Abnormal Bruit, No Mass, Pelvis Stable, Distended, Rebound, Tender, Other (enlarged spleen and liver) (Female) Exam: Deferred Back Exam: Normal Inspection, Full Range of Motion Extremities: Normal Inspection, Normal Range of Motion, Non-Tender, No Pedal Edema, Normal Capillary Refill Skin: Warm, Dry, Intact Wound/Incisions: Healing Well Neurological: No New Focal Deficit Psy/Mental Status: Alert, Normal Affect, Normal Mood - Patient Data Lab Results Last 24 hrs: Laboratory Results - last 24 hr 08/10/20 Range/Units 15:35 Urine Color Yellow (Yellow) Urine Appearance Clear (Clear) Urine pH 6.0 (5.0-8.0) Ur Specific Baker 1.025 (1.005-1.030) Urine Protein Negative (Negative) Urine Glucose (UA) Negative (Negative) Urine Ketones Negative (Negative) Urine Occult Blood Negative (Negative) Urine Nitrite Negative (Negative) Urine Bilirubin Negative (Negative) Urine Urobilinogen 1.0 (0.2-1.0) Ur Leukocyte Esterase Negative (Negative) Urine RBC 0-5 (0-5) /hpf Urine WBC 0-5 (0-5) /hpf Ur Squamous Epith Cells 0-5 (0-5) /hpf Urine Bacteria Few (FEW) /hpf Urine Mucus Few (FEW) /hpf Result Diagrams: 08/10/20 03:55 08/10/20 03:55 Sepsis Event Note - Evaluation Sepsis Screening Result: No Definite Risk - Focused Exam Vital Signs: Vital Signs Temp Pulse Resp BP Pulse Ox 08/11/20 07:58 97.7 F 57 L 16 99/74 100 08/11/20 03:09 97.3 F 55 L 16 94/63 100 08/10/20 23:16 97.5 F 64 12 98/60 99 - Problem List & Annotations (1) Anemia SNOMED Code(s): 109748116 Code(s): D64.9 - ANEMIA, UNSPECIFIED Status: Acute Priority: Medium Current Visit: Yes Onset Date: ~08/09/20 Qualifiers: Anemia type: other cause Other causes of anemia: other cause, not classified Qualified Code(s): D64.89 - Other specified anemias (2) Cholecystitis SNOMED Code(s): 56767687 Code(s): K81.9 - CHOLECYSTITIS, UNSPECIFIED Status: Acute Priority: Low Current Visit: Yes Onset Date: ~08/09/20 Annotation/Comment:: possible cholcystitis 08/10/20 gb low ejecton fraction at 32 % and normal uptake . discussed with patient and famly and will restart pain meds and treat abd pain sec. to met livr and lymph nodes . follow up over next 24 hours. stopped antibiotics and i.v and she is hungry and slept fairly well. no change in tenderness and is still more tender on rt side than left. b.s good and stool normal . allow to eat and discuss with Dr Baker. no fever but on ant zosyn ad metronidizole. lfts same cholystisis (3) Colon cancer metastasized to multiple sites SNOMED Code(s): 940935353, 375928234 Code(s): C18.9 - MALIGNANT NEOPLASM OF COLON, UNSPECIFIED Status: Acute Priority: High Current Visit: Yes Onset Date: ~08/09/20 Annotation/Comment:: follow up next week anticipated with Dr Baker. new mets known . (4) History of colon cancer, stage IV SNOMED Code(s): 233663266, 251946120 Code(s): Z85.038 - PERSONAL HISTORY OF MALIGNANT NEOPLASM OF LARGE INTESTINE Status: Acute Priority: Medium Current Visit: Yes Onset Date: ~08/09/20 (5) Nausea SNOMED Code(s): 326993252 Code(s): R11.0 - NAUSEA Status: Acute Priority: Low Current Visit: Yes Onset Date: ~08/09/20 (6) Pain in the abdomen SNOMED Code(s): 97752394 Code(s): R10.9 - UNSPECIFIED ABDOMINAL PAIN Status: Acute Priority: High Current Visit: Yes Onset Date: ~08/06/20 Qualifiers: Abdominal location: generalized Qualified Code(s): R10.84 - Generalized abdominal pain Annotation/Comment:: hida scan shows good uptake of nuclear tracer with low normal excretion pattern . ercheck lfts and restart pain meds including video producer pump. 08/11/20 good night overall pain still present but much better control. recheck labs and discussed results and no signs sepsis and or acute g.b obstruction clinically and repat labs off antibioltics . - Problem List Review Problem List Initiated/Reviewed/Updated: Yes - Assessment Assessment:: 08/11/2020: Afebrile She is a awake and orientated Patient states that she is feeling better this morning Patient states that the pressure she feels in her back is starting to be minimal Patient states that with her pain getting more controlled that she has been able to sleep a bit She is wearing her glasses She is on a regular diet and patient reports that she had a fairly decent appetite this morning and that yesterday her appetite was not great She still has abdominal distension Patient reports that she is having some constipation and feel like she has to loya ve a BM but has been able to go Patient reports that she takes stool softeners at home and that it helps with her constipation Blood pressures this mornin/63 and 99/74 Pulse rate this morning running 55-57 Patient is wondering if she is able to get IV medications through her port since her arm is starting to bother her and it is itching, she would also like o be able to shower Patient is wondering about pain pumps and if she would be a good candidate for one, if her pain would be better managed with one, or if she should continue taking oral pain medications Discussed trying to talk with Dr. Baker and Edwardo Whitman [employer] SCI[employer] TEACHER on if they believe a pain pump would be a good option for her Discussed stopping IV antibiotics after today Discussed rechecking labs of a CBC, CRP, Sed Rate, and blood culture tomorrow Discussed possible discharging tomorrow or Friday with Patient and boh - Plan Plan:: 08/09/2020: The patient presents by [facility] with [place] [facility] for severe abdominal, pack and generalized pain. This started on the . She was seen here yesterday and had labs and give dilaudid and felt better. She went home and this morning the pain was worse. She was given zofran 4mg IV and dilaudid in the ambulance. She still has severe pain when she arrived. She has stage IV colon cancer. This was first diagnosed on 03/27/18. She is currently seeing Dr. Baker and she is on chemotherapy. Her last chemotherapy was on 08/03/20. On 08/04/20 she had neulasta. She has some nausea but no vomiting. She has no fever, chills, cough, chest pain, shortness of breath or diarrhea. She says the pain is in her abdomen, back, arms and legs. Her US shows diffuse metastatic disease within the liver. Gallstones with gallbladder wall thickening. Fluid is also seen within the upper right abdomen. Nonvisualized biliary ducts. This is highly suspicious for cholecystitis. I called Dr Mistry and he wanted me to give her zosyn and flagyl. I have a call out to Dr Guadarrama. She was in surgery and she will call me back. She was transferred from the ED and admitted to the floor. Admit to Floor: 30 year old female with history of advanced stage 4 colon cancer with mets to liver (and adrenal possible) who presents with 4 day history of recurrent abdominal pain, sharp epigastric pain up to 8-10 on the pain scale despite her usual doses of hydrocodone. She reportedly was in the ED on 08/08/2020 and had labs and was given Dilaudid and felt better but this morning her pain was worse. She was given Zofran 4mg IV and Dilaudid in the ambulance. She has a history of mild increased nausea but no vomiting and recently had Neulasta on 08/04/2020 after her last chemotherapy on 08/03/2020. She denies any fever or chills, but her increased pain is not the usual pain she deals with. Mild worsening of p.p. nausea, but she otherwise feels well and has no jaundice noted but she is having some trouble keeping up with fluids. She has no new medications, no history of pancreatitis, no history of cholestasis other than once before elevated t.b. caused cancellation of chemotherapy, but does have a known elevated alkaline phosphatase which is unchanged per Dr. Baker. Her status of colon cancer has more lesions in liver on the CT scan compared to 2 years ago and calcification of multiple mets that are seen on the scan today. She has a possible small abscess seen per radiology and questioning of cholecystis with thickening of gallbladder wall and fluid around gallbladder with ascites and possible abscess in right lob e verses a cystic mass. Patient related the she had good pain relief with Dilaudid and that her appetite is fair despite pain, but she has had increased nausea and diarrhea this am. P.E. Pallor and chronically ill appearing female Vital signs stable as recorded Mild abdominal distension with good blow sounds and palpitation tenderness to RUQ enlarged liver and spleen and non tender mild epigastric pain as well Lab reviewed and CBC normal, LFTs elevated, Alkaline phosphatase 891, but not changed from previous per Dr. Baker CT Scan report showed multiple new liver metastases mixed with extensive old calcified metastases and possible abscess to right lower lobe and massive splenomegaly with gallbladder wall thickening and mild fluid around the gallbladder and paucity of bile ducts in the liver. Reviewed with Dr. Sarabia and interventional radiology at [facility] and patient was seen by surgery who feels like she is not a surgical candidate even if her pain is from gallbladder drainage per cutaneous is still an option. Assess: 1) Suspect her pain is form cysts and/or mets and will treat conservatively with narcotics and IV metronidazole and Zosyn started 2) IV support and pain control 3) Will recheck liver labs in the AM 4) Possible cholecystitis and discussed getting a HIDA scan if patient does not improve and has not declared herself clinically. Surgery to follow as well Plan: IV antibiotics and IV support and reassess pain and clinical picture in the AM with HIDA scan, lab, and exam Consider transferring to a higher care facility if she worsens clinically and needs interventional radiology Discussed the plan with patient and her family and they are in agreement boh 08/10/2020: RUQ, spleen, and epigastric pain She has abdominal distention and nausea, but no vomiting She is having a lot of pain which is worse since she has not had her pain medication since 3 in the morning due to having a HIDA scan this morning S3/S4 and enlarged liver and spleen on examination She denies any chest pain, SOB, headache, fever, or chills Bloor pressures this morning were 118/83 and 118/84 Pulse rate this morning running 72-85 Labs from 08/10/2020: Alkaline phosphatase 749, Hemoglobin 8.5, Platelet count 142, Total Bilirubin 1.2, CRP 9.4 HIDA Scan results showed normal biliary and low gallbladder ejection fraction at 32 percent Discussed trying to get pain under control and either increasing morphine or converting her morphine to fentanyl Discussed her current status and options with Dr. Guadarrama Discussed the possibility of transferring to a higher care facility if she worsens clinically and needs interventional radiology 08/11/2020: Afebrile She is a awake and orientated Patient states that she is feeling better this morning Patient states that the pressure she feels in her back is starting to be minimal Patient states that with her pain getting more controlled that she has been able to sleep a bit She is wearing her glasses She is on a regular diet and patient reports that she had a fairly decent appetite this morning and that yesterday her appetite was not great She still has abdominal distension Patient reports that she is having some constipation and feel like she has to have a BM but has been able to go Patient reports that she takes stool softeners at home and that it helps with her constipation Blood pressures this mornin/63 and 99/74 Pulse rate this morning running 55-57 Patient is wondering if she is able to get IV medications through her port since her arm is starting to bother her and it is itching, she would also like o be able to shower Patient is wondering about pain pumps and if she would be a good candidate for one, if her pain would be better managed with one, or if she should continue taking oral pain medications Discussed trying to talk with Dr. Baker and Edwardo Whitman [employer] on if they believe a pain pump would be a good option for her Discussed stopping IV antibiotics after today Discussed rechecking labs of a CBC, CRP, Sed Rate, and blood culture tomorrow Discussed possible discharging tomorrow or Friday with Patient and boh
[2020-08-11] MEDS: oxyCODONE ER 10 MG TAB.ER PO SCH (18:33)
[2020-08-11] MEDS: LORazepam 0.5 MG Tab PO PRN (20:40)
[2020-08-11] MEDS: Temazepam 15 MG Cap PO PRN (20:40)
[2020-08-12] MEDS: Sucralfate Suspension 1 GM/10 ML Cup PO SCH ×3 (01:37→13:20)
[2020-08-12] MEDS: Docusate Sodium 100 MG Cap PO PRN (01:44)
[2020-08-12] MEDS: oxyCODONE ER 20 MG TAB.ER PO SCH (06:03)
[2020-08-12] MEDS: oxyCODONE ER 10 MG TAB.ER PO SCH (06:04)
[2020-08-12] MEDS: fentaNYL/Normal Saline 300 MCG/30 ML PCA Vial IV PRN (07:39)
[2020-08-12] MEDS: Sodium Chloride 0.9% 1,000 ML IV SCH (07:45)
[2020-08-12 08:08] VITALS: BP 113/75; PULSE 69
[2020-08-12] MEDS ORDERED: Pantoprazole 40 MG Tab.CR PO SCH (09:00)
[2020-08-12] MEDS ORDERED: oxyCODONE 5 MG Tab PO PRN (09:11)
[2020-08-12] MEDS ORDERED: oxyCODONE ER 10 MG TAB.ER PO ONE (09:37)
[2020-08-12] MEDS: Enoxaparin 40 MG/0.4 ML Syringe SUBCUT SCH (09:46)
--- NOTE | 2020-08-12 13:22 | PCM.DCSUM1 ---
Discharge Summary - Hospital Course Free Text/Narrative:: Patient was admitted to the hospital for colon cancer metastasized to multiple sites, anemia, and abdominal pain. CT abdomen showed metastatic disease and cholelithiasis. HIDA scan was normal but gallbladder EF was low. She was initially treated with antibiotics which was discontinued since no clinical evidence of infection. Her pain from the metastatic cancer was managed by self controlled fentanyl drip, and oxycodone. Discussed that with the patient and pharmacy. We will discharge this patient on oxycodone er 120 mg twice a day and immediate release tablets of 20 mg every 6 hours for breakthrough pain. Patient will see her oncologist Dr. Atkins, pain specialist Chloe and PCP next Friday (August 14). Today patient feels better. Vital signs are stable and acceptable. She can walk without any problems. She refused to go to any facilities and would like to go home today. I will discharge her to home today to follow with the doctors mentioned above. Repeat CBC, electrolytes, and CMP in 3 days and then weekly. Do not drive until approval from MD. Call PCP for medical issues Diagnosis: Stroke: No - Discharge Data Discharge Date: 08/12/20 Discharge Disposition: Home, Self-Care 01 Condition: Poor - Referral to Home Health Primary Care Physician: PCP Not In Area - Patient Summary/Data Consults: Consultations 08/09/20 13:35 Consult to Physician [CONS] Stat 08/09/20 17:17 Consult to Case Management/Ramp Service Employee [CONS] Routine Consult to Verification Specialist [CONS] Routine PT Evaluation and Treatment [CONS] Routine Labs Pending at D/C: Repeat CBC, electrolytes, and CMP in 3 days and then weekly. Recommended Follow-up Testing/Procedures: oncologist Dr. Atkins, pain specialist Chloe and PCP next Friday (August 14) Repeat CBC, electrolytes, and CMP in 3 days and then weekly. - Patient Instructions Activity: As Tolerated - Discharge Plan *PRESCRIPTION DRUG MONITORING PROGRAM REVIEWED*: No *COPY OF PRESCRIPTION DRUG MONITORING REPORT IN PATIENT ERNIE: No Prescriptions/Med Rec: oxyCODONE 20 mg PO Q6HR PRN #20 tablet PRN Reason: PRN SEVERE PAIN (7-10) oxyCODONE ER [OxyCONTIN] 120 mg PO BID@0600,1800 PRN #24 tab.er PRN Reason: Pain (Severe 7-10) Pantoprazole [ProTONIX] 40 mg PO DAILY #30 tab.cr Ondansetron [Zofran] 4 mg PO Q6H PRN #10 tab PRN Reason: Nausea/Vomiting Home Medications: Home Meds Docusate Sodium [Colace] 100 mg PO DAILY 11/06/18 [History] Ondansetron [Zofran] 4 mg PO Q6H PRN #10 tab 08/12/20 [Rx] Pantoprazole [ProTONIX] 40 mg PO DAILY #30 tab.cr 08/12/20 [Rx] oxyCODONE 20 mg PO Q6HR PRN #20 tablet 08/12/20 [Rx] oxyCODONE ER [OxyCONTIN] 120 mg PO BID@0600,1800 PRN #24 tab.er 08/12/20 [Rx] Patient Handouts: Abdominal Pain, Adult, [id number], What You Need to Know About Chronic Back Pain, Opioid Pain Medicine Management, [id number] Referrals: Cayetano Colby NP [Ordering Only Provider] - (follow up as planned with Dr. Baker) Orlando Baker MD [Ordering Only Provider] - (follow up as instructed by Dr. Baker) f/u with oncology Chloe Whitman and PCP [Other] (Next Friday (08/14/20)) - Discharge Summary/Plan Comment DC Time >30 min.: Yes - General Info Date of Service: 08/12/20 Admission Dx/Problem (Free Text: Admission Diagnosis/Problem Admission Diagnosis/Problem Pain management 08/09/2020: The patient presents by [facility] with [facility] for severe abdominal, pack and generalized pain. This started on the . She was seen here yesterday and had labs and give dilaudid and felt better. She went home and this morning the pain was worse. She was given zofran 4mg IV and dilaudid in the ambulance. She still has severe pain when she arrived. She has stage IV colon cancer. This was first diagnosed on 03/27/18. She is currently seeing Dr. Baker and she is on chemotherapy. Her last chemotherapy was on 08/03/20. On 08/04/20 she had neulasta. She has some nausea but no vomiting. She has no fever, chills, cough, chest pain, shortness of breath or diarrhea. She says the pain is in her abdomen, back, arms and legs. Her US shows diffuse metastatic disease within the liver. Gallstones with gallbladder wall thickening. Fluid is also seen within the upper right abdomen. Nonvisualized biliary ducts. This is highly suspicious for cholecystitis. I called Dr Mistry and he wanted me to give her zosyn and flagyl. I have a call out to Dr Guadarrama. She was in surgery and she will call me back. She was transferred from the ED and admitted to the floor. Admit to Floor: 30 year old female with history of advanced stage 4 colon cancer with mets to liver (and adrenal possible) who presents with 4 day history of recurrent abdominal pain, sharp epigastric pain up to 8-10 on the pain scale despite her usual doses of hydrocodone. She reportedly was in the ED on 08/08/2020 and had labs and was given Dilaudid and felt better but this morning her pain was worse. She was given Zofran 4mg IV and Dilaudid in the ambulance. She has a history of mild increased nausea but no vomiting and recently had Neulasta on 08/04/2020 after her last chemotherapy on 08/03/2020. She denies any fever or chills, but her increased pain is not the usual pain she deals with. Mild worsening of p.p. nausea, but she otherwise feels well and has no jaundice noted but she is having some trouble keeping up with fluids. She has no new medications, no history of pancreatitis, no history of cholestasis other than once before elevated t.b. caused cancellation of chemotherapy, but does have a known elevated alkaline phosphatase which is unchanged per Dr. Baker. Her status of colon cancer has more lesions in liver on the CT scan compared to 2 years ago and calcification of multiple mets that are seen on the scan today. She has a possible small abscess seen per radiology and questioning of cholecystis with thickening of gallbladder wall and fluid around gallbladder with ascites and possible abscess in right lobe verses a cystic mass. Patient related the she had good pain relief with Dilaudid and that her appetite is fair despite pain, but she has had increased nausea and diarrhea this am. P.E. Pallor and chronically ill appearing female Vital signs stable as recorded Mild abdominal distension with good blow sounds and palpitation tenderness to RUQ enlarged liver and spleen and non tender mild epigastric pain as well Lab reviewed and CBC normal, LFTs elevated, Alkaline phosphatase 891, but not changed from previous per Dr. Baker CT Scan report showed multiple new liver metastases mixed with extensive old calcified metastases and possible abscess to right lower lobe and massive splenomegaly with gallbladder wall thickening and mild fluid around the gallbl adder and paucity of bile ducts in the liver. Reviewed with Dr. Sarabia and interventional radiology at [facility] and patient was seen by surgery who feels like she is not a surgical candidate even if her pain is from gallbladder drainage per cutaneous is still an option. Assess: 1) Suspect her pain is form cysts and/or mets and will treat conservatively with narcotics and IV metronidazole and Zosyn started 2) IV support and pain control 3) Will recheck liver labs in the AM 4) Possible cholecystitis and discussed getting a HIDA scan if patient does not improve and has not declared herself clinically. Surgery to follow as well Plan: IV antibiotics and IV support and reassess pain and clinical picture in the AM with HIDA scan, lab, and exam Consider transferring to a higher care facility if she worsens clinically and needs interventional radiology Discussed the plan with patient and her family and they are in agreement boh 08/10/2020: RUQ, spleen, and epigastric pain She has abdominal distention and nausea, but no vomiting She is having a lot of pain which is worse since she has not had her pain medication since 3 in the morning due to having a HIDA scan this morning S3/S4 and enlarged liver and spleen on examination She denies any chest pain, SOB, headache, fever, or chills Bloor pressures this morning were 118/83 and 118/84 Pulse rate this morning running 72-85 Labs from 08/10/2020: Alkaline phosphatase 749, Hemoglobin 8.5, Platelet count 142, Total Bilirubin 1.2, CRP 9.4 HIDA Scan results showed normal biliary and low gallbladder ejection fraction at 32 percent Discussed trying to get pain under control and either increasing morphine or converting her morphine to fentanyl Discussed her current status and options with Dr. Guadarrama Discussed the possibility of transferring to a higher care facility if she worsens clinically and needs interventional radiology 08/11/2020: Afebrile She is a awake and orientated Patient states that she is feeling better this morning Patient states that the pressure she feels in her back is starting to be minimal Patient states that with her pain getting more controlled that she has been able to sleep a bit She is wearing her glasses She is on a regular diet and patient reports that she had a fairly decent appetite this morning and that yesterday her appetite was not great She still has abdominal distension Patient reports that she is having some constipation and feel like she has to have a BM but has been able to go Patient reports that she takes stool softeners at home and that it helps with her constipation Blood pressures this mornin/63 and 99/74 Pulse rate this morning running 5557 Patient is wondering if she is able to get IV medications through her port since her arm is starting to bother her and it is itching, she would also like o be able to shower Patient is wondering about pain pumps and if she would be a good candidate for one, if her pain would be better managed with one, or if she should continue taking oral pain medications Discussed trying to talk with Dr. Baker and Chloe Whitman SENIOR HUMAN RESOURCES REPRESENTATIVE on if they believe a pain pump would be a good option for her Discussed stopping IV antibiotics after today Discussed rechecking labs of a CBC, CRP, Sed Rate, and blood culture tomorrow Discussed possible discharging tomorrow or Friday with Patient and Subjective Update: 08/11/2020: Afebrile She is a awake and orientated Patient states that she is feeling better this morning Patient states that the pressure she feels in her back is starting to be minimal Patient states that with her pain getting more controlled that she has been able to sleep a bit She is wearing her glasses She is on a regular diet and patient reports that she had a fairly decent appetite this morning and that yesterday her appetite was not great She still has abdominal distension Patient reports that she is having some constipation and feel like she has to have a BM but has been able to go Patient reports that she takes stool softeners at home and that it helps with her constipation Blood pressures this mornin/63 and 99/74 Pulse rate this morning running 55-57 Patient is wondering if she is able to get IV medications through her port since her arm is starting to bother her and it is itching, she would also like o be able to shower Patient is wondering about pain pumps and if she would be a good candidate for one, if her pain would be better managed with one, or if she should continue taking oral pain medications Discussed trying to talk with Dr. Baker and Chloe Whitman SENIOR HUMAN RESOURCES REPRESENTATIVE on if they believe a pain pump would be a good option for her Discussed stopping IV antibiotics after today Discussed rechecking labs of a CBC, CRP, Sed Rate, and blood culture tomorrow Discussed possible discharging tomorrow or Friday with Patient and . add. called pain clinic in [facility]. chloe Diaz m.d with [facility] and no return call / left message to discuss pain control pump options per patient request. p.m. 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 ski guide use. increased dose of long acting oxicontin to 120 mg bid rescue pain med increased to oxycontin 30 mg and will start tonight. plan to decrease pain pump use in anticipation of d/c if stable fri or friday . boh 08/12 Feels much better. Denies nausea, vomiting, fever, or chills. Pain is controlled. - Patient Data Vitals - Most Recent: Last Vital Signs Temp 36.7 C 08/12/20 07:27 Pulse 69 08/12/20 07:27 Resp 16 08/12/20 07:27 BP 113/75 08/12/20 07:27 Pulse Ox 100 08/12/20 07:27 Weight - Most Recent: 63.957 kg I&O - Last 24 hours: Intake & Output 08/11/20 08/12/20 08/12/20 22:59 06:59 14:59 Intake Total 1815 2518 200 Output Total 200 Balance 1815 2318 200 Lab Results - Last 24 hrs: Laboratory Results - last 24 hr 08/11/20 08/12/20 08/12/20 Range/Units 19:34 05:20 05:20 WBC 5.39 (3.98-10.04) K/mm3 RBC 2.88 L (3.98-5.22) M/mm3 Hgb 7.9 L (11.2-15.7) gm/dl Hct 27.3 L (34.1-44.9) % MCV 94.8 (79.4-94.8) fl MCH 27.4 (25.6-32.2) pg MCHC 28.9 L (32.2-35.5) g/dl RDW Std Deviation 82.2 H (36.4-46.3) fL Plt Count 119 L (182-369) K/mm3 MPV 11.1 (9.4-12.3) fl Neut % (Auto) 68.0 (34.0-71.1) % Lymph % (Auto) 19.5 (19.3-51.7) % [place] % (Auto) 10.6 (4.7-12.5) % Eos % (Auto) 0.9 (0.7-5.8) Baso % (Auto) 0.4 (0.1-1.2) % Neut # (Auto) 3.67 (1.56-6.13) K/mm3 Lymph # (Auto) 1.05 L (1.18-3.74) K/mm3 [place] # (Auto) 0.57 H (0.24-0.36) K/mm3 Eos # (Auto) 0.05 (0.04-0.36) K/mm3 Baso # (Auto) 0.02 (0.01-0.08) K/mm3 Manual Slide Review Abnormal smear Sodium 141 (136-145) mEq/L Potassium 3.5 (3.5-5.1) mEq/L Chloride 106 (98-107) mEq/L Carbon Dioxide 24 (21-32) mEq/L Anion Gap 14.5 (5-15) BUN 6 L (7-18) mg/dL Creatinine 0.7 (0.55-1.02) mg/dL Est Cr Clr Drug Dosing 104.61 mL/min Estimated GFR (MDRD) > 60 (>60) mL/min BUN/Creatinine Ratio 8.6 L (14-18) Glucose 92 (74-106) mg/dL Calcium 8.0 L (8.5-10.1) mg/dL Total Bilirubin 1.0 (0.2-1.0) mg/dL AST 51 H (15-37) U/L ALT 34 (14-59) U/L Alkaline Phosphatase 648 H (46-116) U/L C-Reactive Protein 6.4 H* (<1.0) mg/dL Total Protein 6.6 (6.4-8.2) g/dl Albumin 2.3 L (3.4-5.0) g/dl Globulin 4.3 gm/dL Albumin/Globulin Ratio 0.5 L (1-2) Urine Color Yellow (Yellow) Urine Appearance Clear (Clear) Urine pH 6.0 (5.0-8.0) Ur Specific [place] 1.025 (1.005-1.030) Urine Protein Negative (Negative) Urine Glucose (UA) Negative (Negative) Urine Ketones Negative (Negative) Urine Occult Blood Negative (Negative) Urine Nitrite Negative (Negative) Urine Bilirubin Negative (Negative) Urine Urobilinogen >=8.0 H (0.2-1.0) Ur Leukocyte Esterase Negative (Negative) Urine RBC 0-5 (0-5) /hpf Urine WBC 0-5 (0-5) /hpf Ur Squamous Epith Cells 0-5 (0-5) /hpf Urine Bacteria Few (FEW) /hpf Urine Mucus Not seen (FEW) /hpf Med Orders - Current: Current Medications Acetaminophen (Acetaminophen 325 Mg Tab) 1,000 mg PO Q6H PRN PRN Reason: Pain Last Admin: 08/10/20 18:20 Dose: 1,000 mg Documented by: Diphenhydramine HCl (Diphenhydramine 50 Mg/Ml Sdv) 25 mg IVPUSH Q6H PRN PRN Reason: Itching Diphenhydramine HCl (Diphenhydramine 25 Mg Cap) 25 mg PO Q6H PRN PRN Reason: Itching Docusate Sodium (Docusate Sodium 100 Mg Cap) 100 mg PO BID PRN PRN Reason: Constipation Last Admin: 08/12/20 01:44 Dose: 100 mg Documented by: Enoxaparin Sodium (Enoxaparin 40 Mg/0.4 Ml Syringe) 40 mg SUBCUT DAILY [facility] Last Admin: 08/12/20 09:46 Dose: 40 mg Documented by: Sodium Chloride (Normal Saline) 1,000 mls @ 125 mls/hr IV ASDIRECTED [facility] Last Admin: 08/12/20 07:45 Dose: 125 mls/hr Documented by: Ibuprofen (Ibuprofen 800 Mg Tab) 800 mg PO Q8H PRN PRN Reason: Pain Last Admin: 08/10/20 18:19 Dose: 800 mg Documented by: Lorazepam (Lorazepam 0.5 Mg Tab) 0.5 mg PO Q8HR PRN PRN Reason: Anxiety Last Admin: 08/11/20 20:40 Dose: 0.5 mg Documented by: Naloxone HCl (Naloxone 0.4 Mg/Ml Sdv) 0.4 mg IVPUSH Q3M PRN PRN Reason: Respiratory Depression Ondansetron HCl (Ondansetron 4 Mg Tab.Dis) 8 mg PO Q6H PRN PRN Reason: Nausea/Vomiting Ondansetron HCl (Ondansetron 4 Mg/2 Ml Sdv) 4 mg IVPUSH Q6H PRN PRN Reason: Nausea/Vomiting Oxycodone HCl (Oxycodone Er 20 Mg Tab.Er) 120 mg PO BID@0600,1800 [facility] Oxycodone HCl (Oxycodone 5 Mg Tab) 20 mg PO Q4H PRN PRN Reason: PRN SEVERE PAIN (7-10) Oxycodone/Acetaminophen (Acetaminophen/Oxycodone 325-5 Mg Tab) 2 tab PO Q4H PRN PRN Reason: Pain (moderate 4-6) Last Admin: 08/10/20 03:43 Dose: 2 tab Documented by: Pantoprazole Sodium (Pantoprazole 40 Mg Tab.Cr) 40 mg PO DAILY [facility] Last Admin: 08/12/20 09:47 Dose: 40 mg Documented by: Senna/Docusate Sodium (Docusate Sodium/Sennosides 50-8.6 Mg Tab) 1 tab PO DAILY PRN PRN Reason: Constipation Last Admin: 08/11/20 14:26 Dose: 1 tab Documented by: Sodium Chloride (Sodium Chloride 0.9% 10 Ml Syringe) 10 ml FLUSH ASDIRECTED PRN PRN Reason: Keep Vein Open Last Admin: 08/09/20 10:51 Dose: 10 ml Documented by: Sucralfate (Sucralfate Suspension 1 Gm/10 Ml Cup) 1 gm PO Q6H [facility] Last Admin: 08/12/20 09:47 Dose: 1 gm Documented by: Temazepam (Temazepam 15 Mg Cap) 15 mg PO BEDTIME PRN PRN Reason: Sleep Last Admin: 08/11/20 20:40 Dose: 15 mg Documented by: Discontinued Medications Docusate Sodium (Docusate Sodium 100 Mg Cap) 100 mg PO DAILY [facility] Last Admin: 08/10/20 14:20 Dose: 100 mg Documented by: Fentanyl (Fentanyl 100 Mcg/2 Ml Sdv) 100 mcg IVPUSH ONETIME ONE Stop: 08/09/20 13:17 Last Admin: 08/09/20 13:23 Dose: 100 mcg Documented by: Fentanyl (Fentanyl 100 Mcg/2 Ml Sdv) 100 mcg IVPUSH ONETIME [facility]LLIS[facility] Stop: 08/10/20 12:30 Fentanyl (Fentanyl 100 Mcg/2 Ml Sdv) 50 mcg IVPUSH Q5M PRN PRN Reason: Abdominal Pain Last Admin: 08/10/20 13:58 Dose: 50 mcg Documented by: Fentanyl (Fentanyl 100 Mcg/2 Ml Sdv) 100 mcg IVPUSH Q5M PRN PRN Reason: Abdominal Pain Last Admin: 08/10/20 15:05 Dose: 50 mcg Documented by: Fentanyl Citrate (Fentanyl/Normal Saline 300 Mcg/30 Ml Darkroom Technician Vial) 0 mcg IV ASDIRECTED PRN; Protocol PRN Reason: Pain Last Admin: 08/12/20 07:39 Dose: 300 mcg Documented by: Hydromorphone HCl (Hydromorphone 1 Mg/Ml Syringe) 1 mg IVPUSH ONETIME ONE Stop: 08/09/20 09:31 Last Admin: 08/09/20 09:56 Dose: 1 mg Documented by: Hydromorphone HCl (Hydromorphone 1 Mg/Ml Syringe) 1 mg IVPUSH ONETIME ONE Stop: 08/09/20 10:30 Last Admin: 08/09/20 10:35 Dose: 1 mg Documented by: Hydromorphone HCl (Hydromorphone 1 Mg/Ml Syringe) 1 mg IVPUSH ONETIME ONE Stop: 08/09/20 11:53 Last Admin: 08/09/20 12:06 Dose: 1 mg Documented by: Hydromorphone HCl (Hydromorphone 0.5 Mg/0.5 Ml Syringe) 0.5 mg IVPUSH Q2H PRN PRN Reason: Pain (severe 7-10) Last Admin: 08/09/20 20:05 Dose: 0.5 mg Documented by: Hydromorphone HCl (Hydromorphone 1 Mg/Ml Syringe) 1 mg IVPUSH Q2H PRN PRN Reason: Pain (severe 7-10) Last Admin: 08/10/20 03:07 Dose: 1 mg Documented by: Sodium Chloride (Normal Saline) 1,000 mls @ 125 mls/hr IV ASDIRECTED [facility] Last Admin: 08/09/20 09:57 Dose: 125 mls/hr Documented by: Piperacillin Sod/Tazobactam (Sod 4.5 gm/ Sodium Chloride) 100 mls @ 25 mls/hr IV Q8H [facility] Last Admin: 08/11/20 06:07 Dose: 25 mls/hr Documented by: Metronidazole 500 mg/ Premix 100 mls @ 100 mls/hr IV ONETIME ONE Stop: 08/09/20 14:29 Last Admin: 08/09/20 14:13 Dose: 100 mls/hr Documented by: Lactated Ringer's (Ringers, Lactated) 1,000 mls @ 125 mls/hr IV ASDIRECTED [facility] Piperacillin Sod/Tazobactam (Sod 4.5 gm/ Sodium Chloride) 100 mls @ 25 mls/hr IV Q8H [facility] Last Admin: 08/09/20 18:16 Dose: Not Given Documented by: Metronidazole 500 mg/ Premix 100 mls @ 100 mls/hr IV Q8H [facility] Last Admin: 08/11/20 05:06 Dose: 100 mls/hr Documented by: Iopamidol (Iopamidol 612 Mg/Ml 100 Ml Bottle) 100 ml IVPUSH ONETIME ONE Stop: 08/09/20 10:42 Last Admin: 08/09/20 10:51 Dose: 100 ml Documented by: Lorazepam (Lorazepam 2 Mg/Ml Sdv) 1 mg IVPUSH ONETIME ONE Stop: 08/09/20 10:00 Last Admin: 08/09/20 10:04 Dose: 1 mg Documented by: Lorazepam (Lorazepam 2 Mg/Ml Sdv) 1 mg IVPUSH ONETIME ONE Stop: 08/10/20 08:32 Last Admin: 08/10/20 09:31 Dose: 1 mg Documented by: Oxycodone HCl (Oxycodone 15 Mg Tab) 15 mg PO Q4H PRN PRN Reason: Pain (severe 7-10) Last Admin: 08/10/20 21:14 Dose: 15 mg Documented by: Oxycodone HCl (Oxycodone Er 20 Mg Tab.Er) 80 mg PO BID@0600,1800 [facility] Last Admin: 08/12/20 06:03 Dose: 80 mg Documented by: Oxycodone HCl (Oxycodone 15 Mg Tab) 30 mg PO Q4H PRN PRN Reason: Pain (severe 7-10) Oxycodone HCl (Oxycodone Er 10 Mg Tab.Er) 10 mg PO Q12H [facility] Last Admin: 08/12/20 06:04 Dose: 10 mg Documented by: Oxycodone HCl (Oxycodone Er 10 Mg Tab.Er) 10 mg PO ONETIME ONE Stop: 08/11/20 11:31 Last Admin: 08/11/20 12:09 Dose: 10 mg Documented by: Oxycodone HCl (Oxycodone Er 10 Mg Tab.Er) 30 mg PO ONETIME ONE Stop: 08/12/20 09:38 Last Admin: 08/12/20 10:24 Dose: 30 mg Documented by: Pantoprazole Sodium (Pantoprazole 40 Mg Vial) 40 mg .XX ONETIME ONE Stop: 08/09/20 17:18 Last Admin: 08/09/20 18:16 Dose: Not Given Documented by: Pantoprazole Sodium (Pantoprazole 40 Mg Vial) 40 mg IVPUSH ONETIME ONE Stop: 08/09/20 18:16 Last Admin: 08/09/20 18:30 Dose: 40 mg Documented by: Pantoprazole Sodium (Pantoprazole 40 Mg Vial) 40 mg IVPUSH DAILY [facility] Last Admin: 08/11/20 09:17 Dose: 40 mg Documented by: Sodium Chloride (Sodium Chloride 0.9% 10 Ml Syringe) 10 ml FLUSH ONETIME ONE Stop: 08/09/20 10:42 Last Admin: 08/09/20 11:40 Dose: 10 ml Documented by: Zolpidem Tartrate (Zolpidem 10 Mg Tab) 10 mg PO ONETIME PRN PRN Reason: Insomnia Last Admin: 08/10/20 23:07 Dose: 10 mg Documented by: - Exam General: Reports: Alert, Oriented, Cooperative, No Acute Distress HEENT: Reports: Pupils Equal, Pupils Reactive, EOMI Neck: Reports: Supple, Trachea Midline, No JVD, No Thyromegaly Lungs: Reports: Clear to Auscultation, Normal Respiratory Effort Cardiovascular: Reports: Regular Rate, No Murmurs GI/Abdominal Exam: Normal Bowel Sounds, Distended Extremities: Normal Inspection, Normal Range of Motion, Non-Tender, No Pedal Edema Skin: Reports: Warm, Dry, Intact Neurological: Reports: No New Focal Deficit, Normal Gait, Normal Speech, Normal Tone, Strength Equal Bilateral, Sensation Intact Psy/Mental Status: Reports: Alert, Normal Affect, Normal Mood
[2020-08-12] MEDS ORDERED: oxyCODONE ER 20 MG TAB.ER PO SCH (18:00)
== END 2020-08-12 15:28 | disposition home or self-care (01) | DRG 861 ==
LOC: JD.ED 09:17 → JD.MS 13:31 → OBSVTOIN 13:31
PROVIDERS: ADMIT Pediatrics; ATTEND Pediatrics
DX: G89.3 Neoplasm related pain (acute) (chronic) (principal); C78.7 Secondary malignant neoplasm of liver and intrahepatic bile duct; D64.9 Anemia, unspecified; K80.20 Calculus of gallbladder without cholecystitis without obstruction; H54.7 Unspecified visual loss; C79.51 Secondary malignant neoplasm of bone; D84.9 Immunodeficiency, unspecified; C18.9 Malignant neoplasm of colon, unspecified; Z20.822 Contact with and (suspected) exposure to COVID-19; K59.00 Constipation, unspecified; Z88.8 Allergy status to other drugs, medicaments and biological substances; Z79.899 Other long term (current) drug therapy; Z90.49 Acquired absence of other specified parts of digestive tract
CPT/HCPCS: 36415; 74177; 74177-26; 76705; 76705-26; 78227; 78227-26; 80053; 81001; 81003; 82150; 83690; 85025; 86140; 94762; 96374; 96375; 96376; 99284; 99285-25; A9270-GY; A9537; C9113; J1170; J1642; J1650; J2060; J2543; J3010; J3490; J7030; Q9967; U0002

== ENCOUNTER 2021-07-19 18:17 | Inpatient (IN) | payer BC ==
[2021-07-19] MEDS ORDERED: HYDROmorphone 1 MG/ML Syringe IVPUSH ONE ×2 (19:35→22:09)
[2021-07-19] MEDS ORDERED: Ketorolac 15 MG/ML SDV IVPUSH ONE (19:42)
[2021-07-19] MEDS ORDERED: Sodium Chloride 0.9% 1,000 ML IV SCH (19:45)
[2021-07-19] MEDS ORDERED: Iopamidol 612 MG/ML 100 ML Bottle IVPUSH ONE ×2 (20:07→21:15)
[2021-07-19] MEDS ORDERED: Sodium Chloride 0.9% 100 ML IV SCH ×2 (20:15→21:15)
[2021-07-19] MEDS: Sodium Chloride 0.9% 10 ML Syringe FLUSH ONE ×2 (20:16→21:16)
[2021-07-19] MEDS ORDERED: Sodium Chloride 0.9% 10 ML SDV FLUSH ONE (21:15)
[2021-07-19] MEDS ORDERED: Vancomycin 125 MG Cap PO STA (21:51)
[2021-07-20] MEDS ORDERED: Ondansetron 4 MG/2 ML SDV IVPUSH PRN (00:23)
[2021-07-20] MEDS: HYDROmorphone 1 MG/ML Syringe IVPUSH PRN ×7 (03:27→23:47)
[2021-07-20] MEDS: Sodium Chloride 0.9% 1,000 ML IV SCH ×2 (05:55→15:46)
[2021-07-20] MEDS ORDERED: Promethazine 25 MG Tab PO PRN (06:46)
[2021-07-20] MEDS ORDERED: Cyclobenzaprine 10 MG Tab PO PRN (06:46)
[2021-07-20] MEDS ORDERED: oxyCODONE 5 MG Tab PO PRN (06:46)
[2021-07-20] MEDS ORDERED: LORazepam 1 MG Tab PO PRN (06:46)
[2021-07-20] MEDS ORDERED: Dexamethasone 4 MG Tab PO PRN (06:46)
[2021-07-20] MEDS ORDERED: Ondansetron 4 MG Tab.DIS PO PRN (06:46)
[2021-07-20] MEDS ORDERED: Cholestyramine/Sucrose Powder 4 GM Packet PO PRN (07:27)
[2021-07-20] MEDS: Enoxaparin 40 MG/0.4 ML Syringe SUBCUT SCH (08:38)
[2021-07-20] MEDS: Furosemide 40 MG Tab PO SCH (08:39)
[2021-07-20] MEDS: Magnesium Oxide 400 MG Tab PO SCH (08:39)
[2021-07-20] MEDS: Vancomycin 250 MG Cap PO SCH ×3 (08:39→20:25)
[2021-07-20] MEDS: oxyCODONE ER 20 MG TAB.ER PO SCH ×2 (08:39→20:25)
[2021-07-20] MEDS: Pantoprazole 40 MG Tab.CR PO SCH (08:40)
[2021-07-20] MEDS: Potassium Chloride 10 MEQ Tab.ER PO SCH (08:40)
[2021-07-20] MEDS ORDERED: Potassium Chloride 20 MEQ Tab.ER PO SCH (09:00)
[2021-07-20] MEDS ORDERED: [UNRECOGNIZED DRUG - OTHER] PO SCH (09:00)
[2021-07-20] MEDS ORDERED: fentaNYL 100 MCG/HR Transdermal Patch TRDERM SCH (15:15)
[2021-07-20] MEDS ORDERED: HYDROmorphone 1 MG/ML Syringe IVPUSH ONE (20:00)
[2021-07-21] MEDS: HYDROmorphone 1 MG/ML Syringe IVPUSH PRN ×11 (02:02→21:09)
[2021-07-21] MEDS: Vancomycin 250 MG Cap PO SCH ×4 (02:04→19:30)
[2021-07-21] MEDS: Sodium Chloride 0.9% 1,000 ML IV SCH (02:05)
[2021-07-21] MEDS ORDERED: Magnesium Sulfate/Water 2 GM in Premix Bag 1 BAG IV ONE (06:39)
[2021-07-21] MEDS: Furosemide 40 MG Tab PO SCH (09:04)
[2021-07-21] MEDS: Pantoprazole 40 MG Tab.CR PO SCH (09:05)
[2021-07-21] MEDS: Magnesium Oxide 400 MG Tab PO SCH (09:05)
[2021-07-21] MEDS: oxyCODONE ER 20 MG TAB.ER PO SCH ×3 (09:05→21:01)
[2021-07-21] MEDS: Potassium Chloride 10 MEQ Tab.ER PO SCH (09:05)
[2021-07-21] MEDS: Enoxaparin 40 MG/0.4 ML Syringe SUBCUT SCH (09:06)
[2021-07-21] MEDS ORDERED: Polyethylene Glycol 3350 Powder 17 GM Packet PO ONE (20:54)
[2021-07-22] MEDS: HYDROmorphone 1 MG/ML Syringe IVPUSH PRN ×2 (01:20→06:12)
[2021-07-22] MEDS: Vancomycin 250 MG Cap PO SCH ×2 (01:20→08:48)
[2021-07-22] MEDS: Furosemide 40 MG Tab PO SCH (08:49)
[2021-07-22] MEDS: Pantoprazole 40 MG Tab.CR PO SCH (08:49)
[2021-07-22] MEDS: oxyCODONE ER 20 MG TAB.ER PO SCH (08:50)
[2021-07-22] MEDS: Magnesium Oxide 400 MG Tab PO SCH (08:51)
[2021-07-22] MEDS: Potassium Chloride 10 MEQ Tab.ER PO SCH (08:52)
[2021-07-22] MEDS: Enoxaparin 40 MG/0.4 ML Syringe SUBCUT SCH (08:53)
[2021-07-22] MEDS ORDERED: Simethicone 80 MG Tab.Chew PO PRN (09:03)
[2021-07-22 10:40] VITALS: BP 126/87; PULSE 87
== END 2021-07-22 11:50 | disposition home or self-care (01) | DRG 861 ==
LOC: JD.ED 18:17 → JD.MS 22:38
PROVIDERS: ADMIT Internal Medicine; ATTEND Internal Medicine
DX: G89.3 Neoplasm related pain (acute) (chronic) (principal); A04.72 Enterocolitis due to Clostridium difficile, not specified as recurrent; C78.02 Secondary malignant neoplasm of left lung; C78.01 Secondary malignant neoplasm of right lung; D84.9 Immunodeficiency, unspecified; R18.0 Malignant ascites; E44.1 Mild protein-calorie malnutrition; Z20.822 Contact with and (suspected) exposure to COVID-19; C19 Malignant neoplasm of rectosigmoid junction; H54.7 Unspecified visual loss; Z79.899 Other long term (current) drug therapy; Z88.8 Allergy status to other drugs, medicaments and biological substances; Z90.49 Acquired absence of other specified parts of digestive tract; Z92.21 Personal history of antineoplastic chemotherapy; Z68.26 Body mass index [BMI] 26.0-26.9, adult
CPT/HCPCS: 36415; 71045; 71045-26; 74177; 74177-26; 80053; 83690; 83735; 85025; 87045; 87046; 87324; 87493; 87899; 94762; 96374; 96375; 99285; 99285-25; A9270-GY; J1170; J1642; J1650; J1885; J3475; J3490; J7030; Q9967; U0002